=== PATIENT | male | born 1945 | race Caucasian/White ===

== ENCOUNTER 2018-05-30 16:47 | Inpatient (IN) ==
[2018-05-30 17:40] LABS: Urine Appearance Cloudy (CLEAR); Urine Bilirubin Negative (NEGATIVE); Urine Blood 250 /ul (NEGATIVE); Urine Color Brown; Urine Ketone Negative (NEGATIVE); Urine Nitrite Negative (NEGATIVE); Urine Protein 100 mg/dL (NEGATIVE); Urine Specific Gravity 1.025 SP.GR. (1.005-1.030); Urine Urobilinogen Normal (NORMAL); Urine pH 5.5 pH (5.0-7.0)
[2018-05-30 17:43] LABS: Urine Amorphous Sediment Moderate - 2+ (NONE-FEW); Urine Bacteria 1+; Urine RBC >50 /hpf (0-5)
[2018-05-30 17:48] LABS: Hematocrit 26.7 % (42.0-52.0); Hemoglobin 8.6 gm/dL (13.5-18.0); Mean Cell Volume 87.8 fl (78-100); Mean Corpuscular Hemoglobin 28.3 pg (27-31); Mean Corpuscular Hgb Conc 32.2 g/dl (32-36); Mean Platelet Volume 10.4 fl (8-11.3); Neutrophil # 7.2 K/mm3 (1.3-6.0); Neutrophil % 82.5 % (42-75.0); Platelet Count 159 K/mm3 (150-450); Red Blood Count 3.04 M/mm3 (4.7-6.0); Red Cell Distribution Width 15.2 % (11.5-14.0); White Blood Count 8.7 K/mm3 (4.0-10.5)
[2018-05-30 18:07] LABS: ALT 34 U/L (19-67); AST 43 U/L (0-48); Albumin * 2.6 gm/dl (3.4-5.0); Alkaline Phosphatase * 197 U/L (50-170); Anion Gap 14.3 mmol/L (6.8-13.8); BNP * 4342 pg/mL (5-350); BUN/Creatinine Ratio 18.1 (9.0-21.6); Bilirubin, Total 0.7 mg/dL (0.0-1.1); Blood Urea Nitrogen 29 mg/dL (6-23); Ca. Corrected For Albumin 9.5 mg/dL (8.4-10.2); Calcium * 8.7 mg/dL (7.9-10.9); Carbon Dioxide 23.8 mmol/L (24-32.6); Chloride 101 mmol/L (97-106); Glucose * 250 mg/dL (70-110); Potassium 4.1 mmol/L (3.4-4.6); Sodium 135 mmol/L (132-142); Total Protein 7.6 gm/dL (6.2-8.2)
[2018-05-30 18:14] LABS: Troponin I Less than 0.017 ng/mL (0.00-0.10)
[2018-05-30 18:20] LABS: CRP 13.3 mg/dL (0.0-0.9)
[2018-05-30] MEDS ORDERED: VANCOMYCIN HCL 1 GM in DEXTROSE 5 % IN WATER 250 ML IV ONE ×2 (18:23)
[2018-05-30] MEDS ORDERED: FUROSEMIDE 10 MG/ML VIAL IV ONE (18:52)
[2018-05-30] MEDS ORDERED: cefTRIAXone SODIUM 1,000 MG/100 ML BAG IV ONE (18:52)
--- NOTE | 2018-05-30 19:05 | ERNOTE ---
Lower Extremity HPI - Narrative Date of Service: 05/30/18 - General Lower Extremities Pain: foot: left Time Seen by Provider: 05/30/18 17:17 Source: patient, family Exam Limitations: no limitations - Immun/Allergies/Home Medications Immunizations: IMMUNIZATION HX Immunizations Up to Date Yes History of Influenza Vaccine Yes Hx Pneumococcal Vaccination Yes Allergies/Adverse Reactions: Allergies Allergy/AdvReac Type Severity Reaction Status Date / Time No Known Allergies Allergy Verified 05/30/18 17:22 Home Medications: HOME MEDICATIONS Omeprazole [Prilosec] 20 mg PO DAILY 04/03/16 [Last Taken Unknown] Aspirin 325 mg PO DAILY 03/12/18 [Last Taken Unknown] Atorvastatin Calcium 40 mg PO QPM 03/12/18 [Last Taken Unknown] Amlodipine Besylate 10 mg PO DAILY 05/30/18 [Last Taken Unknown] Apixaban [Eliquis] 5 mg PO BID 05/30/18 [Last Taken Unknown] Carvedilol [Coreg] 25 mg PO BID 05/30/18 [Last Taken Unknown] Cholecalciferol (Vitamin D3) [Vitamin D3] 1,000 unit PO DAILY 05/30/18 [Last Taken Unknown] Clobetasol Propionate 15 gm TOPICAL BID 05/30/18 [Last Taken Unknown] Doxazosin Mesylate 16 mg PO HS 05/30/18 [Last Taken Unknown] Gabapentin 100 mg PO DAILY 05/30/18 [Last Taken Unknown] Gabapentin 300 mg PO QPM 05/30/18 [Last Taken Unknown] Insulin Regular, Human [Humulin R U-500 Kwikpen] 60 unit SQ HS 05/30/18 [Last Taken Unknown] Insulin Regular, Human [Humulin R U-500 Kwikpen] 100 unit SQ 0700,1200,1700 05/30/18 [Last Taken Unknown] - History of Present Illness Narrative: patient presents to ed with c/o infected feet, has been taking antibiotics po and wounds have worsened with fever Occurred: last week Loss of Consciousness: Reports: no loss of consciousness Modifying Factors - (Improves): Reports: other - nothing Modifying Factors - (Worsens): Reports: other - nothing Associated Symptoms: Reports: dizzy/light headedness, weakness Other Injuries: Reports: none Prior Treament: Reports: recently seen, treated by physician, similar symptoms before Review of Systems - Review of Systems Constitutional: Present: See HPI, fever, chills, other - ulcers on feet, sob EYE: Present: no symptoms reported ENT: Present: no symptoms reported Respiratory: Present: See HPI, shortness of breath, cough Cardiology: Present: no symptoms reported Gastrointestinal/Abdominal: Present: no symptoms reported Genitourinary: Present: See HPI, frequency, dysuria Musculoskeletal: Present: See HPI Skin: Present: See HPI, other - decubiti- feet Neurological: Present: no symptoms reported Endocrine: Present: no symptoms reported Hematologic/Lymphatic: Present: no symptoms reported Psych: Present: no symptoms reported All Other Systems: All systems neg except as marked Medical History (Last Reviewed 05/30/18 @ 17:21 by Missy Calzada RN) Decubitus skin ulcer Diabetes History of low potassium Hyperlipidemia Hypertension Stroke Onset Date: ~03/2012 Surgical History: Surgical History (Last Reviewed 05/30/18 @ 17:22 by Missy Calzada RN) Hernia Hiatal hernia Family History: Family History (Last Reviewed 05/30/18 @ 17:22 by Missy Calzada RN) Mother CVA (cerebral vascular accident) Father Pneumonia Brother Hypertension Colon cancer Brother Hypertension Brother Hypertension Social History: Preferred Language Lao Do you have any sikhism or No cultural preference? Smoking Status Never smoker Abuse History No History of abuse Psych History No pertinent hx Alcohol Use none Drug Use none No Social History Section defined Physical Exam - Physical Exam General Appearance: Present: mild distress, anxious Head Exam: Present: normal inspection, no evidence of injury Eye Exam: Normal inspection: bilateral, PERRL: bilateral, EOMI: bilateral Ears, Nose, Throat: Present: normal ENT inspection, normal pharynx Neck: Present: normal inspection, nontender Respiratory: Present: no respiratory distress, no accessory muscle use, chest nontender, crackles, rales, rhonchi Cardiovascular/Chest: Present: regular rate, rhythm, no murmur, normal peripheral pulses Gastrointestinal/Abdominal: Present: normal bowel sounds, nontender, nondistended, soft, no organomegaly Extremity Exam: Present: normal except -, extremity edema - decubitis ulcers on both feet Neurological Exam: Present: alert, oriented, normal mood/affect, no m otor/sensory deficits Skin Exam: Present: other - see above Progress - Date and Time Seen: Date and Time: 05/30/18 19:02 condition unchanged, case discussed with dr mccauley accepted for admission to hospital - Results and Orders Patient's Lab Results:: I have reviewed the patient's lab results. - Vital Signs Patient's Vital Signs:: I have reviewed the patient's vital signs. Vital Signs: Vital Signs 05/30/18 17:05 05/30/18 18:52 Temperature 38.4 C H 37.9 C Pulse Rate 74 77 Respiratory Rate 20 16 Blood Pressure 133/75 133/59 O2 Sat by Pulse Oximetry 94 94 - EKG EKG #1 EKG: NSR - X-Ray X-Ray #1 X-Ray: chest - pulmonary edema, feet no osseus deformity Interpretation: Interp. by me - Progress/Reassessment Chief Complaint: Lower Extremity Pain/ Injury Progress:: Unchanged - Transfer of Care Expected Disposition: Admit Plan - Plan Plan: to be admitted Departure Clinical Impression: CHF (congestive heart failure), Decubital ulcer - Departure Disposition: Still a patient Condition: Stable
[2018-05-30] MEDS ORDERED: NORMAL SALINE 1,000 ML IV PRN (19:06)
[2018-05-30] MEDS: VANCOMYCIN HCL 500 MG in DEXTROSE 5 % IN WATER 100 ML IV SCH ×2 (21:53)
[2018-05-30] MEDS: CARVEDILOL 25 MG TABLET PO SCH (22:35)
[2018-05-30] MEDS: GABAPENTIN 300 MG CAPSULE PO SCH (22:36)
[2018-05-30] MEDS: DOXAZOSIN MESYLATE 2 MG TABLET PO SCH (22:36)
[2018-05-30] MEDS: APIXABAN 5 MG TABLET PO SCH (22:36)
[2018-05-30] MEDS: ACETAMINOPHEN 325 MG TABLET PO PRN (23:03)
[2018-05-31] MEDS: CIPROFLOXACIN IN 5 % DEXTROSE 400 MG/200 ML BAG IV SCH ×3 (00:01→23:01)
[2018-05-31] MEDS ORDERED: INSULIN REGULAR HUMAN 100 UNIT SQ SCH (07:00)
[2018-05-31] MEDS: PANTOPRAZOLE SODIUM 20 MG TABLET.DR PO SCH (07:23)
[2018-05-31] MEDS: ACETAMINOPHEN 325 MG TABLET PO PRN ×2 (07:28→17:23)
--- NOTE | 2018-05-31 07:35 | HP ---
Chief Complaint - Chief Complaint Date of Service: 05/31/18 Time of Service: 07:23 Chief Complaint: foot ulcer History of Present Illness: Patient with past medical history of diabetes and CHF presents with bilateral foot ulcers, and another ulcer of his sacrum. He normally sees a physician through the [facility] in [place], and saw him most recently 2 days ago. He was started on Keflex, but his wounds did not improve. He reports they have been oozing for about a week. He has previously seen Dr. Suarez in the wound clinic for ulcers. He reports having a fever up to 101 degrees for a few days. He lives with his son and his family, and does not ambulate much. He states his diabetes insulin regimen as U500, 140 units in the morning, 40-50 units with lunch, and 40-50 units at dinnertime. Will verify with his pharmacy, as these doses are significant. His Lasix had been stopped over the last few weeks, however he is unsure why. He also states he has renal stones in the right, and has had a stent placed for about a month. He was to have what he describes as probable lithotripsy last week, however his ulcers interfered with that treatment. Medical History (Last Updated 05/31/18 @ 02:32 by Vanesa Sosa RN) DVT (deep venous thrombosis) Unsure which leg; reports had Dx DVT in March 2018 Renal stone Bilateral stones Dx in April 2018; renal stent placed in right kidney Decemeber 2018 Decubitus skin ulcer Diabetes History of low potassium Hyperlipidemia Hypertension Stroke Onset Date: ~03/2012 Surgical History: Surgical History (Last Updated 05/31/18 @ 02:32 by Vanesa Sosa RN) History of renal stent Hernia Hiatal hernia Family History: Family History (Last Reviewed 05/30/18 @ 20:09 by Vanesa Sosa RN) Mother CVA (cerebral vascular accident) Father Pneumonia Brother Hypertension Colon cancer Brother Hypertension Brother Hypertension Social History: Patient Lives/Resources [employer] Utilized Occupation Retired Preferred Language Swedish Do you have any jehovah's witness or No cultural preference? Smoking Status Never smoker Have you smoked in the past 12 No months Do you dip or chew tobacco No Abuse History No History of abuse Psych History No pertinent hx Alcohol Use none Drug Use none No Social History Section defined Review Of Systems (GEN) - Review of Systems Generalized/Overall Review: Present: Fever Respiratory: Present: Shortness of Breath Cardiac: Present: Edema. Absent: Chest Pain Abdominal: Present: Diarrhea - intermittent, baseline. Absent: Vomiting Genitourinary: Present: Hematuria Skin: Present: Other - right heel ulcer, left lateral toe/metatarsal ulcer Immunizations: IMMUNIZATION HX Immunizations Up to Date Yes History of Influenza Vaccine Yes Hx Pneumococcal Vaccination Yes Allergies/Adverse Reactions: Allergies Allergy/AdvReac Type Severity Reaction Status Date / Time No Known Allergies Allergy Verified 05/30/18 17:22 Home Medications: HOME MEDICATIONS Omeprazole [Prilosec] 20 mg PO DAILY 04/03/16 [Last Taken Unknown] Aspirin 325 mg PO DAILY 03/12/18 [Last Taken Unknown] Atorvastatin Calcium 40 mg PO QPM 03/12/18 [Last Taken Unknown] Amlodipine Besylate 10 mg PO DAILY 05/30/18 [Last Taken Unknown] Apixaban [Eliquis] 5 mg PO BID 05/30/18 [Last Taken Unknown] Carvedilol [Coreg] 25 mg PO BID 05/30/18 [Last Taken Unknown] Cholecalciferol (Vitamin D3) [Vitamin D3] 1,000 unit PO DAILY 05/30/18 [Last Taken Unknown] Clobetasol Propionate 15 gm TOPICAL BID 05/30/18 [Last Taken Unknown] Doxazosin Mesylate 16 mg PO HS 05/30/18 [Last Taken Unknown] Gabapentin 100 mg PO DAILY 05/30/18 [Last Taken Unknown] Gabapentin 300 mg PO QPM 05/30/18 [Last Taken Unknown] Insulin Regular, Human [Humulin R U-500 Kwikpen] 60 unit SQ HS 05/30/18 [Last Taken Unknown] Insulin Regular, Human [Humulin R U-500 Kwikpen] 100 unit SQ 0700,1200,1700 05/30/18 [Last Taken Unknown] Exam - Exam Vital Signs: Vital Signs - Last Taken Temp 37.1 C 05/31/18 06:54 Pulse 79 05/31/18 06:54 Resp 20 05/31/18 06:54 BP 120/48 05/31/18 06:54 Pulse Ox 93 05/31/18 06:54 Constitutional: Present: Alert, Oriented x3, Morbidly obese Respiratory: Present: normal breath sounds, no respiratory distress Cardiovascular/Chest: Present: regular rate, rhythm, systolic murmur - II/ Abdomen: Present: soft, nontender, obese Extremity: Present: lower extremity edema - 2+ bilaterally Skin Exam: Present: other - mepilex over sacral ulcer. 4 X 4 cm blackened area of plantar surface of right heel, with surrounding macerated skin. 2X2 cm Stage III ulcer of lateral left forefoot Neurologic: Present: normal mood/affect Diagnostic Studies: Abnormal Lab Results 05/30/18 05/30/18 05/30/18 Range/Units 17:28 17:44 17:44 RBC 3.04 L (4.7-6.0) M/mm3 Hgb 8.6 L (13.5-18.0) gm/dL Hct 26.7 L (42.0-52.0) % RDW 15.2 H (11.5-14.0) % Immature Gran % (Auto) 0.60 H (0.001-0.429) % Immature Gran # (Auto) 0.05 H (0.000-0.0310) K/mm3 Neutrophils % 82.5 H (42-75.0) % Lymphocytes % 7.1 L (20-51) % Neutrophils # 7.2 H (1.3-6.0) K/mm3 Lymphocytes # 0.62 L (1.5-3.5) k/mm3 Carbon Dioxide 23.8 L (24-32.6) mmol/L Anion Gap 14.3 H (6.8-13.8) mmol/L BUN 29 H (6-23) mg/dL Creatinine 1.60 H (0.4-1.4) mg/dL Est GFR (Non-Af Amer) 46 L (60-130) mL/min Random Glucose 250 H (70-110) mg/dL Lactic Acid, Venous (0.4-2.0) mmol/L Alkaline Phosphatase 197 H (50-170) U/L C-Reactive Prot, Quant 13.3 H (0.0-0.9) mg/dL B-Natriuretic Peptide 4342 H (5-350) pg/mL Albumin 2.6 L (3.4-5.0) gm/dl Procalcitonin (0.05-0.50) ng/mL Urine Protein 100 H (NEGATIVE) mg/dL Urine Glucose (UA) 100 H (NEGATIVE) mg/dL Urine Blood 250 H (NEGATIVE) /ul Prot Sulfosalicylic Acd 4+ H (0) mg/dL Ur Leukocyte Esterase 25 H (NEGATIVE) /ul Urine RBC >50 H (0-5) /hpf Urine WBC 5-10 H (0-5) /hpf Amorphous Sediment Moderate - 2+ H (NONE-FEW) Urine Bacteria 1+ H (NONE) 05/30/18 05/30/18 Range/Units 17:44 17:44 RBC (4.7-6.0) M/mm3 Hgb (13.5-18.0) gm/dL Hct (42.0-52.0) % RDW (11.5-14.0) % Immature Gran % (Auto) (0.001-0.429) % Immature Gran # (Auto) (0.000-0.0310) K/mm3 Neutrophils % (42-75.0) % Lymphocytes % (20-51) % Neutrophils # (1.3-6.0) K/mm3 Lymphocytes # (1.5-3.5) k/mm3 Carbon Dioxide (24-32.6) mmol/L Anion Gap (6.8-13.8) mmol/L BUN (6-23) mg/dL Creatinine (0.4-1.4) mg/dL Est GFR (Non-Af Amer) (60-130) mL/min Random Glucose (70-110) mg/dL Lactic Acid, Venous 2.2 H* (0.4-2.0) mmol/L Alkaline Phosphatase (50-170) U/L C-Reactive Prot, Quant (0.0-0.9) mg/dL B-Natriuretic Peptide (5-350) pg/mL Albumin (3.4-5.0) gm/dl Procalcitonin 0.69 H (0.05-0.50) ng/mL Urine Protein (NEGATIVE) mg/dL Urine Glucose (UA) (NEGATIVE) mg/dL Urine Blood (NEGATIVE) /ul Prot Sulfosalicylic Acd (0) mg/dL Ur Leukocyte Esterase (NEGATIVE) /ul Urine RBC (0-5) /hpf Urine WBC (0-5) /hpf Amorphous Sediment (NONE-FEW) Urine Bacteria (NONE) Laboratory Results WBC 8.7 K/mm3 (4.0-10.5) 05/30/18 17:44 RBC 3.04 M/mm3 (4.7-6.0) L 05/30/18 17:44 Hgb 8.6 gm/dL (13.5-18.0) L 05/30/18 17:44 Hct 26.7 % (42.0-52.0) L 05/30/18 17:44 MCV 87.8 fl (78-100) 05/30/18 17:44 MCH 28.3 pg (27-31) 05/30/18 17:44 MCHC 32.2 g/dl (32-36) 05/30/18 17:44 RDW 15.2 % (11.5-14.0) H 05/30/18 17:44 Plt Count 159 K/mm3 (150-450) 05/30/18 17:44 MPV 10.4 fl (8-11.3) 05/30/18 17:44 Immature Gran % (Auto) 0.60 % (0.001-0.429) H 05/30/18 17:44 Immature Gran # (Auto) 0.05 K/mm3 (0.000-0.0310) H 05/30/18 17:44 Neutrophils % 82.5 % (42-75.0) H 05/30/18 17:44 Lymphocytes % 7.1 % (20-51) L 05/30/18 17:44 Monocytes % 8.6 % (0.0-9) 05/30/18 17:44 Eosinophils % 1.0 % (0.0-3.0) 05/30/18 17:44 Basophils % 0.2 % (0.0-1.0) 05/30/18 17:44 Nucleated RBC % 0.0 k/mm3 (0-1) 05/30/18 17:44 Neutrophils # 7.2 K/mm3 (1.3-6.0) H 05/30/18 17:44 Lymphocytes # 0.62 k/mm3 (1.5-3.5) L 05/30/18 17:44 Monocytes # 0.8 k/mm3 (0.0-1.0) 05/30/18 17:44 Eosinophils # 0.1 k/mm3 (0.0-0.7) 05/30/18 17:44 Absolute Basophils 0.0 k/mm3 (0.0-0.1) 05/30/18 17:44 Sodium 135 mmol/L (132-142) 05/30/18 17:44 Plasma Sodium 137 mmol/L (130-142) 05/30/18 17:44 Potassium 4.1 mmol/L (3.4-4.6) 05/30/18 17:44 Chloride 101 mmol/L (97-106) 05/30/18 17:44 Carbon Dioxide 23.8 mmol/L (24-32.6) L 05/30/18 17:44 Anion Gap 14.3 mmol/L (6.8-13.8) H 05/30/18 17:44 BUN 29 mg/dL (6-23) H 05/30/18 17:44 Creatinine 1.60 mg/dL (0.4-1.4) H 05/30/18 17:44 Est GFR (Non-Af Amer) 46 mL/min (60-130) L 05/30/18 17:44 BUN/Creatinine Ratio 18.1 (9.0-21.6) 05/30/18 17:44 Random Glucose 250 mg/dL (70-110) H 05/30/18 17:44 Lactic Acid, Venous 2.0 mmol/L (0.4-2.0) 05/30/18 20:30 Calcium 8.7 mg/dL (7.9-10.9) 05/30/18 17:44 Calcium Adj for Albumin 9.5 mg/dL (8.4-10.2) 05/30/18 17:44 Total Bilirubin 0.7 mg/dL (0.0-1.1) 05/30/18 17:44 AST 43 U/L (0-48) 05/30/18 17:44 ALT 34 U/L (19-67) 05/30/18 17:44 Alkaline Phosphatase 197 U/L (50-170) H 05/30/18 17:44 Troponin I Less than 0.017 ng/mL (0.00-0.10) 05/30/18 17:44 C-Reactive Prot, Quant 13.3 mg/dL (0.0-0.9) H 05/30/18 17:44 B-Natriuretic Peptide 4342 pg/mL (5-350) H 05/30/18 17:44 Total Protein 7.6 gm/dL (6.2-8.2) 05/30/18 17:44 Albumin 2.6 gm/dl (3.4-5.0) L 05/30/18 17:44 Procalcitonin 0.69 ng/mL (0.05-0.50) H 05/30/18 17:44 Urine Color Brown 05/30/18 17:28 Urine Appearance Cloudy (CLEAR) 05/30/18 17:28 Urine pH 5.5 pH (5.0-7.0) 05/30/18 17:28 Ur Specific [place] 1.025 SP.GR. (1.005-1.030) 05/30/18 17:28 Urine Protein 100 mg/dL (NEGATIVE) H 05/30/18 17:28 Urine Glucose (UA) 100 mg/dL (NEGATIVE) H 05/30/18 17:28 Urine Ketones Negative mg/dL (NEGATIVE) 05/30/18 17:28 Urine Blood 250 /ul (NEGATIVE) H 05/30/18 17:28 Urine Nitrate Negative (NEGATIVE) 05/30/18 17:28 Urine Bilirubin Negative mg/dl (NEGATIVE) 05/30/18 17:28 Prot Sulfosalicylic Acd 4+ mg/dL (0) H 05/30/18 17:28 Urine Urobilinogen Normal EU/dl (NORMAL) 05/30/18 17:28 Ur Leukocyte Esterase 25 /ul (NEGATIVE) H 05/30/18 17:28 Urine RBC >50 /hpf (0-5) H 05/30/18 17:28 Urine WBC 5-10 /hpf (0-5) H 05/30/18 17:28 Ur Epithelial Cells 0-5 /hpf (0-5) 05/30/18 17:28 Amorphous Sediment Moderate - 2+ (NONE-FEW) H 05/30/18 17:28 Urine Bacteria 1+ (NONE) H 05/30/18 17:28 Urine Culture Comments Culture to follow 05/30/18 17:28 Serum Ketones Negative (NEGATIVE) 05/30/18 17:44 Assessment/Plan - Assessment/Plan (1) Decubital ulcer Assessment: Patient has bilateral decubitus ulcers, with concern for osteomyelitis. Today is Friday, and will order bilateral feet MRIs for tomorrow. Vancomycin and Ciprofloxacin were started last, but will also consult Dr. Suarez for potential surgical management. He reports that his Lasix was stopped, and the increased lower extremity swelling may have contributed to the worsening of his ulcers. We will have him keep his feet up as much as possible and administer Lasix. Blood cultures pending. His initial temperature was febrile at 38.4, he has not been febrile since. We will have him n.p.o. at midnight tonight just in case he may undergo surgery. Problem: Acute Qualifiers: Pressure injury location: heel (2) Diabetes mellitus type 2 with complications Assessment: His glucose has been in the 200s. We will verify his insulin regimen with his pharmacy as he reports very high doses of U500. Problem: Chronic (3) Ureterolithiasis Assessment: Patient had a stent placed approximately a month ago at the [facility]. Initial urinalysis showed signs of infection, and urine culture pending. He received a dose of Rocephin last night, and Cipro was started. Problem: Chronic (4) CHF (congestive heart failure) Assessment: We will administer 40 IV Lasix daily. He has significant bruising in his bilateral lower extremities and decreasing the fluid may help. He reports previously being prescribed Lasix and it was stopped for an unknown reason. We will continue Lasix, as increased edema will impede healing of his wounds. His creatinine appears to be close to his baseline. Problem: Chronic (5) Anemia Assessment: Hgb 8.6, down from 11.6 in March. Normocytic. He has a systolic murmur on exam. He reports having hematuria. Repeat in am. Problem: Acute
[2018-05-31] MEDS: APIXABAN 5 MG TABLET PO SCH ×2 (09:01→20:46)
[2018-05-31] MEDS: CARVEDILOL 25 MG TABLET PO SCH ×2 (09:01→20:46)
[2018-05-31] MEDS: amLODIPine BESYLATE 10 MG TABLET PO SCH (09:01)
[2018-05-31] MEDS: GABAPENTIN 100 MG CAPSULE PO SCH (09:02)
[2018-05-31] MEDS: ASPIRIN 325 MG TABLET.DR PO SCH (09:02)
[2018-05-31] MEDS: FUROSEMIDE 10 MG/ML VIAL IV SCH (09:05)
[2018-05-31] MEDS: VANCOMYCIN HCL 500 MG in DEXTROSE 5 % IN WATER 100 ML IV SCH ×2 (10:35)
[2018-05-31] MEDS: VANCOMYCIN HCL 1.5 GM in DEXTROSE 5 % IN WATER 500 ML IV SCH ×4 (10:35→19:14)
[2018-05-31] MEDS: INSULIN LISPRO 100 UNITS/ML VIAL SC SCH ×3 (11:38→20:50)
[2018-05-31] MEDS: GABAPENTIN 300 MG CAPSULE PO SCH (17:24)
[2018-05-31] MEDS: ROSUVASTATIN CALCIUM 20 MG TABLET PO SCH (17:24)
[2018-05-31] MEDS ORDERED: INSULIN REGULAR, HUMAN 100 UNITS/ML VIAL IV PRN (20:18)
[2018-05-31] MEDS: DOXAZOSIN MESYLATE 2 MG TABLET PO SCH (20:46)
[2018-05-31] MEDS ORDERED: INSULIN REGULAR, HUMAN 100 UNITS/ML VIAL SC SCH (21:00)
[2018-06-01 06:26] LABS: Hematocrit 26.4 % (42.0-52.0); Hemoglobin 8.4 gm/dL (13.5-18.0); Mean Cell Volume 88.6 fl (78-100); Mean Corpuscular Hemoglobin 28.2 pg (27-31); Mean Corpuscular Hgb Conc 31.8 g/dl (32-36); Mean Platelet Volume 11.2 fl (8-11.3); Neutrophil # 6.5 K/mm3 (1.3-6.0); Neutrophil % 81.1 % (42-75.0); Platelet Count 157 K/mm3 (150-450); Red Blood Count 2.98 M/mm3 (4.7-6.0); Red Cell Distribution Width 15.2 % (11.5-14.0)
[2018-06-01 06:32] LABS: Anion Gap 14.1 mmol/L (6.8-13.8); BUN/Creatinine Ratio 22.2 (9.0-21.6); Calcium * 8.3 mg/dL (7.9-10.9); Carbon Dioxide 20.9 mmol/L (24-32.6); Estimated Creat Clear 52.4
[2018-06-01] MEDS: INSULIN LISPRO 100 UNITS/ML VIAL SC SCH ×4 (07:01→20:45)
[2018-06-01] MEDS: PANTOPRAZOLE SODIUM 20 MG TABLET.DR PO SCH (07:01)
[2018-06-01] MEDS: CARVEDILOL 25 MG TABLET PO SCH ×2 (08:24→20:48)
[2018-06-01] MEDS: GABAPENTIN 100 MG CAPSULE PO SCH (08:24)
[2018-06-01] MEDS: ASPIRIN 325 MG TABLET.DR PO SCH (08:24)
[2018-06-01] MEDS: APIXABAN 5 MG TABLET PO SCH (08:24)
[2018-06-01] MEDS: VANCOMYCIN HCL 1.5 GM in DEXTROSE 5 % IN WATER 500 ML IV SCH ×4 (08:24→20:49)
[2018-06-01] MEDS: amLODIPine BESYLATE 10 MG TABLET PO SCH (08:24)
[2018-06-01] MEDS: FUROSEMIDE 10 MG/ML VIAL IV SCH ×2 (08:25→11:45)
--- NOTE | 2018-06-01 08:55 | PN ---
Subjective - Date and Time Seen Date: 06/01/18 Time: 08:15 Subjective Narrative: Patient complains of a sore throat this morning. He states he does not want his feet "cut on too much." He has still been having increased urination and is ambulating to the bathroom. He cannot see if he still has drainage from his feet, however he can tell but he still has edema. Objective - Review of Systems Generalized/Overall Review: Denies: Fever Respiratory: Denies: Shortness of Breath Cardiac: Reports: Edema. Denies: Chest Pain Abdominal: Denies: Vomiting - Vitals Vitals: Last Vital Signs Temp 36.8 C 06/01/18 06:46 Pulse 79 06/01/18 06:46 Resp 20 06/01/18 06:46 BP 109/50 06/01/18 06:46 Pulse Ox 92 L 06/01/18 06:46 - Abnormal Lab Findings Abnormal Lab Findings: Abnormal Lab Results 05/31/18 06/01/18 06/01/18 Range/Units 18:55 06:10 06:10 RBC 2.98 L (4.7-6.0) M/mm3 Hgb 8.4 L (13.5-18.0) gm/dL Hct 26.4 L (42.0-52.0) % MCHC 31.8 L (32-36) g/dl RDW 15.2 H (11.5-14.0) % Immature Gran % (Auto) 1.10 H (0.001-0.429) % Immature Gran # (Auto) 0.09 H (0.000-0.0310) K/mm3 Neutrophils % 81.1 H (42-75.0) % Lymphocytes % 8.0 L (20-51) % Neutrophils # 6.5 H (1.3-6.0) K/mm3 Lymphocytes # 0.64 L (1.5-3.5) k/mm3 Carbon Dioxide 20.9 L (24-32.6) mmol/L Anion Gap 14.1 H (6.8-13.8) mmol/L BUN 32 H (6-23) mg/dL Creatinine 1.44 H (0.4-1.4) mg/dL Est GFR (Non-Af Amer) 52 L (60-130) mL/min BUN/Creatinine Ratio 22.2 H (9.0-21.6) Random Glucose 497 H D 226 H D (70-110) mg/dL - Exam Constitutional: Present: Alert, Morbidly obese Respiratory: Present: no respiratory distress, other - diminished lung sounds Cardiovascular/Chest: Present: regular rate, rhythm Abdomen: Present: soft, nontender Extremity: Present: lower extremity edema - 2+ bilaterally to the knees Skin Exam: Present: other - 4 cm stage III ulcer of plantar surface of right heel with macerated surrounding skin, left foot with mepilex in place Appearance: Present: impaired insight Assessment/Plan - Problems/Diagnosis (1) Decubital ulcer Problem: Acute Qualifiers: Pressure injury location: heel Narrative: He has bilateral foot ulcers of his right heel and left lateral forefoot. MRIs pending for this morning. He is day 3 of vanc and ciprofloxacin. White cell count not elevated. Dr. Suarez with podiatry has been consulted. Need to aggressively treat his CHF exacerbation and blood sugars to help healing. (2) Diabetes mellitus type 2 with complications Problem: Chronic Narrative: Patient uses 150 units U5 100 with breakfast, 50 units U500 with lunch and dinner. U500 not available at our facility. His sugars did creep up to 500 last night. I have an order in place for 10 units of IV insulin as needed if sugar is greater than 500, and continue high-dose sliding scale insulin. He is currently n.p.o. pending potential procedure for his foot ulcers. Anticipate that his blood sugars will greatly increase when he resumes a diet. Our options are to administer home U500, or potential insulin drip. (3) Ureterolithiasis Problem: Chronic (4) CHF (congestive heart failure) Problem: Acute Narrative: We will increase his Lasix to 80 mg daily. Creatinine improved from yesterday. He does not have increased shortness of breath. Distant lung sounds secondary to his body habitus. (5) Anemia Problem: Acute Narrative: Hemoglobin 8.9 yesterday and 8.4 today. We will need to monitor closely. No active signs of blood loss. We will hold his Eliquis temporarily.
[2018-06-01] MEDS ORDERED: FUROSEMIDE 10 MG/ML VIAL IV SCH (09:00)
[2018-06-01] MEDS: ACETAMINOPHEN 325 MG TABLET PO PRN ×2 (09:01→15:35)
[2018-06-01] MEDS: CIPROFLOXACIN IN 5 % DEXTROSE 400 MG/200 ML BAG IV SCH (11:44)
[2018-06-01] MEDS: GABAPENTIN 300 MG CAPSULE PO SCH (16:57)
[2018-06-01] MEDS: ROSUVASTATIN CALCIUM 20 MG TABLET PO SCH (16:57)
--- NOTE | 2018-06-01 16:59 | CONS ---
[facility] - General Date of Service: 06/01/18 Narrative: Pt admitted from ED on 05/30/2018 with CHF, sacral decub, and b/l foot ulcerations. States that he has been under the care of a physician at the [place] in [place] for the last 3 weeks for the b/l foot ulcerations. Relates he is only receiving dressing changes with "some kind of ointment" that his son is applying daily, covering with a dry dressing. He has also been on oral ABX. He is unable to see his feet and has complete numbness of his b/l LE so he cannot tell if they have been improving or worsening. His son was concerned for worsening condition of his feet and brought him to our ED for further care. He has been seen in my office previously, last visit in 2017, for left foot ulceration, which was resolved on his last visit. Upon presentation to the ED, b/l foot xrays were obtained, not showing any osseous changes to indicate infection. However, due to severity in appearance of the ulcers, he was admitted and placed on IV ABX and MRI of b/l feet was done today. There were some concerns for early osteomyelitis vs reactive edema secondary to ulcerations. I was consulted for surgical evaluation and treatment of his b/l foot ulcers. Source: patient Exam Limitations: no limitations - History of Present Illness Timing/Duration: getting worse Associated Symptoms: fever/chills Allergies/Adverse Reactions: Allergies No Known Allergies Allergy (Verified 05/30/18 17:22) Home Medications: Home Medications Medication Instructions Recorded Last Taken Omeprazole [Prilosec] 20 mg PO DAILY 04/03/16 Unknown Aspirin 325 mg PO DAILY 03/12/18 Unknown Atorvastatin Calcium 40 mg PO QPM 03/12/18 Unknown Amlodipine Besylate 10 mg PO DAILY 05/30/18 Unknown Apixaban [Eliquis] 5 mg PO BID 05/30/18 Unknown Carvedilol [Coreg] 25 mg PO BID 05/30/18 Unknown Cholecalciferol (Vitamin D3) 1,000 unit PO DAILY 05/30/18 Unknown [Vitamin D3] Clobetasol Propionate 15 gm TOPICAL BID 05/30/18 Unknown Doxazosin Mesylate 16 mg PO HS 05/30/18 Unknown Gabapentin 100 mg PO DAILY 05/30/18 Unknown Gabapentin 300 mg PO QPM 05/30/18 Unknown Insulin Regular, Human [Humulin R 60 unit SQ HS 05/30/18 Unknown U-500 Kwikpen] Insulin Regular, Human [Humulin R 100 unit SQ 0700,1200,1700 05/30/18 Unknown U-500 Kwikpen] Medications - Medications Current Medications: Current Medications Acetaminophen (Tylenol) 650 mg PO Q6H PRN PRN Reason: Mild pain (pain scale 1-3) Stop: 06/29/18 22:39 Last Admin: 06/01/18 15:35 Dose: 650 mg Documented by: Amlodipine Besylate (Norvasc) 10 mg PO DAILY [facility] Stop: 06/30/18 09:01 Last Admin: 06/01/18 08:24 Dose: 10 mg Documented by: Apixaban (Eliquis) 5 mg PO BID [facility] Stop: 06/29/18 21:16 Last Admin: 06/01/18 08:24 Dose: 5 mg Documented by: Aspirin (Aspirin Enteric Coated) 325 mg PO DAILY [facility] Stop: 06/30/18 09:01 Last Admin: 06/01/18 08:24 Dose: 325 mg Documented by: Carvedilol (Coreg) 25 mg PO BID [facility] Stop: 06/29/18 21:16 Last Admin: 06/01/18 08:24 Dose: 25 mg Documented by: Doxazosin Mesylate (Cardura) 16 mg PO [facility] Stop: 06/29/18 21:31 Last Admin: 05/31/18 20:46 Dose: 16 mg Documented by: Furosemide (Lasix) 80 mg IV DAILY [facility] Stop: 07/01/18 09:01 Last Admin: 06/01/18 11:45 Dose: 40 mg Documented by: Gabapentin (Neurontin) 100 mg PO DAILY [facility] Stop: 06/30/18 09:01 Last Admin: 06/01/18 08:24 Dose: 100 mg Documented by: Gabapentin (Neurontin) 300 mg PO QPM [facility] Stop: 06/29/18 21:31 Last Admin: 05/31/18 17:24 Dose: 300 mg Documented by: Ciprofloxacin/Dextrose (Cipro) 400 mg in 200 mls @ 200 mls/hr IV Q12H [facility]; Protocol Stop: 06/29/18 21:31 Last Infusion: 06/01/18 12:44 Dose: Infused Documented by: Vancomycin HCl 1.5 gm/ (Dextrose/Water) 500 mls @ 140 mls/hr IV Q12H [facility] Stop: 06/30/18 08:01 Last Infusion: 06/01/18 11:59 Dose: Infused Documented by: Insulin Human Lispro (Humalog) 0 units SC ACHLEENA [facility]; Protocol Stop: 06/30/18 12:01 Last Admin: 06/01/18 11:53 Dose: 10 units Documented by: Pantoprazole Sodium (Protonix) 20 mg PO DAILY@0700 [facility] Stop: 06/30/18 07:01 Last Admin: 06/01/18 07:01 Dose: 20 mg Documented by: Rosuvastatin Calcium (Crestor) 20 mg PO QPM [facility] Stop: 06/30/18 17:01 Last Admin: 05/31/18 17:24 Dose: 20 mg Documented by: Review of Systems - Review of Systems Generalized/Overall Review: Present: Chills, Fever EENTM: Present: Other - blindness Abdominal: Absent: Nausea, Vomiting Neurological: Present: Numbness Skin: Present: Other - bilateral foot ulcerations Physical Examination - Exam Vital Signs: Vital Signs - Last Taken Temp 36.6 C 06/01/18 13:46 Pulse 65 06/01/18 13:46 Resp 18 06/01/18 13:46 BP 107/55 06/01/18 13:46 Pulse Ox 95 06/01/18 13:46 O2 Oxygen Delivery Method Room Air Constitutional: Present: Alert, Oriented x3, Cooperative Peripheral Pulses: dorsalis-pedis (R): 0 - monophasic on doppler, dorsalis-pedis (L): 1+ - biphasic on doppler Extremity: Present: lower extremity edema Skin Exam: Present: other - Ulceration to left foot sub 5th metatarsal head measuring 2.8 x 2 x 0.3 cm. No tunneling or undermining. Loss of tissue to full thicknes with exposure of subcutaneous fat layer. Base mostly with black, necrotic, foul smelling tissue. Surrounding tissue with maceration and peeling, mild localized erythema. No crepitance on palpation of skin. Moderate serous drainage, malodor present. No exposed tendon, can palpate head of 5th m etatarsal. Ulceration to plantar right heel measuring 4 x 4 x 0.2 cm. No tunneling or undermining. Loss of tissue to full thicknes with exposure of subcutaneous fat layer. Base mostly with black, necrotic, foul smelling tissue. Surrounding tissue with maceration and peeling, mild localized erythema. No crepitance on palpation of skin. Moderate serous drainage, strong malodor present. No exposed tendon or bone at this time. Neurologic: Present: sensory deficit Appearance: Present: appropriate appearance Eye contact: Present: cooperative - Results and Findings: Lab/Microbiology results last 24 hrs: Abnormal/Pending Laboratory Last 24 HRS 06/01/18 06/01/18 06/01/18 12:35 06:10 06:10 RBC 2.98 L Hgb 8.4 L Hct 26.4 L MCHC 31.8 L RDW 15.2 H Immature Gran % (Auto) 1.10 H Immature Gran # (Auto) 0.09 H Neutrophils % 81.1 H Lymphocytes % 8.0 L Neutrophils # 6.5 H Lymphocytes # 0.64 L ESR 99 H Carbon Dioxide 20.9 L Anion Gap 14.1 H BUN 32 H Creatinine 1.44 H Est GFR (Non-Af Amer) 52 L BUN/Creatinine Ratio 22.2 H Random Glucose 226 H D 05/31/18 18:55 RBC Hgb Hct MCHC RDW Immature Gran % (Auto) Immature Gran # (Auto) Neutrophils % Lymphocytes % Neutrophils # Lymphocytes # ESR Carbon Dioxide Anion Gap BUN Creatinine Est GFR (Non-Af Amer) BUN/Creatinine Ratio Random Glucose 497 H D Culture 05/30/18 18:19 Wound Culture - Preliminary Foot - Left Gram Negative Bacilli Gram Negative Bacilli#2 Group C Streptococcus 05/30/18 18:19 Wound Culture - Preliminary Foot - Right Staphylococcus Species Streptococcus Species Gram Negative Bacilli 05/30/18 17:30 Urine Culture - Preliminary Urine,Clean Catch No Growth 05/30/18 06:36 Blood Culture - Preliminary Blood NO GROWTH 24 HOURS 05/30/18 17:44 Blood Culture - Preliminary Blood NO GROWTH 24 HOURS 05/30/18 20:30 - Final Nares MRSA Negative - Assessments/Findings (1) Diabetic ulcer of foot associated with diabetes mellitus due to underlying condition, with bone involvement without evidence of necrosis Diagnosis(s): Discussed b/l foot ulcerations, MRI results, and treatment options, to include local wound care with debridement, dressing changes, and continued IV ABX, likely 6-8 weeks vs surgical debridement of ulcerations, possible amputations vs debridement of infected bone only. Pt is in agreement with debridement of ulcerations at bedside today. Ulcerations debrided to subcutaneous tissue with #15 blade, excising macerated tissue from the wound margins revealing healthy, bleeding, subcutaneous wound margins. Surface debrided with #15 blade, excising approximately 25% of necrotic tissue down to underlying bleeding subcutaneous tissue. Remaining necrotic tissue is tightly adhered and left intact at this time. Ulcerations dressed with Aquacel Ag, dry gauze, dustin, and MARU bandage. Will begin daily dressings with Santyl, dry gauze, dustin and MARU to help further debride necrotic tissue from the wound beds. Did discuss at length with the patient the severity of his ulcerations/inf ections and the potential that these infections can progress very rapidly. If not treated appropriately, these infections can lead to . Pt is adamant that he is not going to have surgery of any kind. He will agree with dressing changes and local debridement along with licensed psychiatric technician IV ABX, but states "he would rather pass on from this life than have a part of his foot or leg removed." Again reminded him that this infection can become life threatening, and he states understanding, still refusing surgical care. Will plan to follow in his care and continue to educate. Problem: Chronic Qualifiers: Diabetic foot ulcer location: heel Laterality: right Qualified Code(s): E08.621 - Diabetes mellitus due to underlying condition with foot ulcer; L97.416 - Non-pressure chronic ulcer of right heel and midfoot with bone involvement without evidence of necrosis (2) Diabetic ulcer of foot associated with diabetes mellitus due to underlying condition, with bone involvement without evidence of necrosis Problem: Chronic Qualifiers: Diabetic foot ulcer location: other Laterality: left Qualified Code(s): E08.621 - Diabetes mellitus due to underlying condition with foot ulcer; L97.526 - Non-pressure chronic ulcer of other part of left foot with bone involvement without evidence of necrosis
[2018-06-01] MEDS: DOXAZOSIN MESYLATE 2 MG TABLET PO SCH (20:49)
[2018-06-01] MEDS ORDERED: INSULIN REGULAR, HUMAN 100 UNITS/ML VIAL SC SCH (21:00)
[2018-06-02] MEDS: CIPROFLOXACIN IN 5 % DEXTROSE 400 MG/200 ML BAG IV SCH ×3 (01:03→22:59)
[2018-06-02] MEDS: ACETAMINOPHEN 325 MG TABLET PO PRN ×3 (04:40→17:29)
[2018-06-02 05:35] LABS: Hematocrit 27.4 % (42.0-52.0); Hemoglobin 8.7 gm/dL (13.5-18.0); Mean Cell Volume 87.8 fl (78-100); Mean Corpuscular Hemoglobin 27.9 pg (27-31); Mean Corpuscular Hgb Conc 31.8 g/dl (32-36); Mean Platelet Volume 11.1 fl (8-11.3); Neutrophil # 6.1 K/mm3 (1.3-6.0); Neutrophil % 80.9 % (42-75.0); Platelet Count 161 K/mm3 (150-450); Red Blood Count 3.12 M/mm3 (4.7-6.0); Red Cell Distribution Width 15.3 % (11.5-14.0); White Blood Count 7.6 K/mm3 (4.0-10.5)
[2018-06-02 05:36] LABS: Anion Gap 15.5 mmol/L (6.8-13.8); BUN/Creatinine Ratio 20.9 (9.0-21.6); Calcium * 8.4 mg/dL (7.9-10.9); Carbon Dioxide 20.9 mmol/L (24-32.6); Estimated Creat Clear 49.3; Potassium 4.4 mmol/L (3.4-4.6)
[2018-06-02] MEDS: PANTOPRAZOLE SODIUM 20 MG TABLET.DR PO SCH (07:14)
[2018-06-02] MEDS: INSULIN LISPRO 100 UNITS/ML VIAL SC SCH ×4 (07:14→21:24)
[2018-06-02] MEDS ORDERED: VANCOMYCIN HCL LEVEL XX ONE (07:30)
[2018-06-02 08:10] LABS: Vancomycin Trough 26.8 mcg/mL (10.0-20.0)
--- NOTE | 2018-06-02 08:46 | PN ---
Subjective - Date and Time Seen Date: 06/02/18 Time: 11:45 Subjective Narrative: Patient was seen and examined by Dr. Suarez yesterday, and debridement was performed. Surgery suggested, however patient declines. He reports his diet has not changed much here compared to his home diet. He has no new concerns. Objective - Review of Systems Generalized/Overall Review: Denies: Fever Respiratory: Denies: Shortness of Breath Cardiac: Reports: Edema. Denies: Chest Pain Abdominal: Denies: Vomiting - Vitals Vitals: Last Vital Signs Temp 36.6 C 06/02/18 06:29 Pulse 68 06/02/18 06:29 Resp 18 06/02/18 06:29 BP 128/56 06/02/18 06:29 Pulse Ox 93 06/02/18 06:29 - Abnormal Lab Findings Abnormal Lab Findings: Abnormal Lab Results 06/01/18 06/02/18 06/02/18 Range/Units 12:35 05:05 05:05 RBC 3.12 L (4.7-6.0) M/mm3 Hgb 8.7 L (13.5-18.0) gm/dL Hct 27.4 L (42.0-52.0) % MCHC 31.8 L (32-36) g/dl RDW 15.3 H (11.5-14.0) % Immature Gran % (Auto) 1.10 H (0.001-0.429) % Immature Gran # (Auto) 0.08 H (0.000-0.0310) K/mm3 Neutrophils % 80.9 H (42-75.0) % Lymphocytes % 7.9 L (20-51) % Neutrophils # 6.1 H (1.3-6.0) K/mm3 Lymphocytes # 0.60 L (1.5-3.5) k/mm3 ESR 99 H (0-10) mm/hr Carbon Dioxide 20.9 L (24-32.6) mmol/L Anion Gap 15.5 H (6.8-13.8) mmol/L BUN 32 H (6-23) mg/dL Creatinine 1.53 H (0.4-1.4) mg/dL Est GFR (Non-Af Amer) 48 L (60-130) mL/min Random Glucose 255 H (70-110) mg/dL Vancomycin Trough (10.0-20.0) mcg/mL 06/02/18 Range/Units 07:34 RBC (4.7-6.0) M/mm3 Hgb (13.5-18.0) gm/dL Hct (42.0-52.0) % MCHC (32-36) g/dl RDW (11.5-14.0) % Immature Gran % (Auto) (0.001-0.429) % Immature Gran # (Auto) (0.000-0.0310) K/mm3 Neutrophils % (42-75.0) % Lymphocytes % (20-51) % Neutrophils # (1.3-6.0) K/mm3 Lymphocytes # (1.5-3.5) k/mm3 ESR (0-10) mm/hr Carbon Dioxide (24-32.6) mmol/L Anion Gap (6.8-13.8) mmol/L BUN (6-23) mg/dL Creatinine 1.47 H (0.4-1.4) mg/dL Est GFR (Non-Af Amer) (60-130) mL/min Random Glucose (70-110) mg/dL Vancomycin Trough 26.8 H (10.0-20.0) mcg/mL - Exam Constitutional: Present: Alert, Cooperative Respiratory: Present: no respiratory distress Cardiovascular/Chest: Present: regular rate, rhythm Abdomen: Present: soft, obese Extremity: Present: lower extremity edema - 2+ bilaterally to the knee, similar to yesterday Skin Exam: Present: other - 1 cm skin tear of right medial buttocks Assessment/Plan - Problems/Diagnosis (1) Osteomyelitis of right foot Problem: Suspected Narrative: MRIs were questionable for bilateral osteomyelitis. However with the combination of physical exam findings it is ESR of 99, osteomyelitis is likely, and we will treat him as such. Will place PICC line for long-term antibiotics. He was also seen by Dr. Suarez, and appreciate her assistance. He declines amputation, despite the increased risk of . Debridement performed yesterday. Will need aggressive CHF and diabetic management to promote wound healing. Cultures show Staphylococcus, Serratia marcescens, and group C strep, susceptible to Cipro, which was started on the night of admission. Continue vancomycin. Resume eliquis since he is declining surgery. (2) Decubital ulcer Problem: Acute Qualifiers: Pressure injury location: heel Narrative: He has a right heel ulcer, left lateral forefoot ulcer, and an ulcer of his sacrum, which appears to be more of a skin tear. 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 Will change Humulin to Lantus for a longer acting coverage during hospi talization. His home regimen is 150 units of U500 in the morning, 40-50 units at lunch, and 40-50 units at dinnertime. (4) CHF (congestive heart failure) Problem: Acute Narrative: Continue 80 mg IV Lasix daily. Creatinine essentially unchanged from yesterday. (5) Anemia Problem: Acute Narrative: Hgb 8.7 today, 8.4 yesterday. Recheck in am. (6) Ureterolithiasis Problem: Chronic Narrative: Not currently having difficulty urinating. (7) Stage 3 chronic kidney disease Problem: Chronic
[2018-06-02] MEDS: VANCOMYCIN HCL 1.5 GM in DEXTROSE 5 % IN WATER 500 ML IV SCH ×2 (09:19)
[2018-06-02] MEDS: CARVEDILOL 25 MG TABLET PO SCH ×2 (09:23→21:23)
[2018-06-02] MEDS: GABAPENTIN 100 MG CAPSULE PO SCH (09:23)
[2018-06-02] MEDS: ASPIRIN 325 MG TABLET.DR PO SCH (09:24)
[2018-06-02] MEDS: amLODIPine BESYLATE 10 MG TABLET PO SCH (09:24)
[2018-06-02] MEDS: FUROSEMIDE 10 MG/ML VIAL IV SCH (09:24)
[2018-06-02] MEDS: APIXABAN 5 MG TABLET PO SCH ×2 (12:26→21:23)
--- NOTE | 2018-06-02 12:51 | PN ---
Subjective - Date and Time Seen Date: 06/02/18 Time: 11:20 Subjective Narrative: Pt evaluated at bedside resting. Denies any pain in his feet. Denies any N/V/F/C. States that he is having some back pain and did just receive some Tylenol. Still wishes to continue with conservative treatment of his foot ulcerations. Is in agreement with long-term IV ABX and wound debridement. States that surgery is an absolute last option and he "would rather before having any part of his foot or leg cut off." Objective - Review of Systems Generalized/Overall Review: Denies: Chills, Fever Cardiac: Reports: Edema Abdominal: Denies: Nausea, Vomiting Musculoskeletal Complaints: Reports: Back Pain Neurological: Reports: Numbness Skin: Reports: Other - ulcers bilateral feet - Vitals Vitals: Last Vital Signs Temp 36.7 C 06/02/18 10:00 Pulse 78 06/02/18 10:00 Resp 18 06/02/18 10:00 BP 120/50 06/02/18 10:00 Pulse Ox 93 06/02/18 10:00 - Abnormal Lab Findings Abnormal Lab Findings: Abnormal Lab Results 06/01/18 06/02/18 06/02/18 Range/Units 12:35 05:05 05:05 RBC 3.12 L (4.7-6.0) M/mm3 Hgb 8.7 L (13.5-18.0) gm/dL Hct 27.4 L (42.0-52.0) % MCHC 31.8 L (32-36) g/dl RDW 15.3 H (11.5-14.0) % Immature Gran % (Auto) 1.10 H (0.001-0.429) % Immature Gran # (Auto) 0.08 H (0.000-0.0310) K/mm3 Neutrophils % 80.9 H (42-75.0) % Lymphocytes % 7.9 L (20-51) % Neutrophils # 6.1 H (1.3-6.0) K/mm3 Lymphocytes # 0.60 L (1.5-3.5) k/mm3 ESR 99 H (0-10) mm/hr Carbon Dioxide 20.9 L (24-32.6) mmol/L Anion Gap 15.5 H (6.8-13.8) mmol/L BUN 32 H (6-23) mg/dL Creatinine 1.53 H (0.4-1.4) mg/dL Est GFR (Non-Af Amer) 48 L (60-130) mL/min Random Glucose 255 H (70-110) mg/dL Vancomycin Trough (10.0-20.0) mcg/mL 06/02/18 Range/Units 07:34 RBC (4.7-6.0) M/mm3 Hgb (13.5-18.0) gm/dL Hct (42.0-52.0) % MCHC (32-36) g/dl RDW (11.5-14.0) % Immature Gran % (Auto) (0.001-0.429) % Immature Gran # (Auto) (0.000-0.0310) K/mm3 Neutrophils % (42-75.0) % Lymphocytes % (20-51) % Neutrophils # (1.3-6.0) K/mm3 Lymphocytes # (1.5-3.5) k/mm3 ESR (0-10) mm/hr Carbon Dioxide (24-32.6) mmol/L Anion Gap (6.8-13.8) mmol/L BUN (6-23) mg/dL Creatinine 1.47 H (0.4-1.4) mg/dL Est GFR (Non-Af Amer) (60-130) mL/min Random Glucose (70-110) mg/dL Vancomycin Trough 26.8 H (10.0-20.0) mcg/mL - Exam Constitutional: Present: Alert, Oriented x3, Cooperative Extremity: Present: lower extremity edema Skin Exam: Present: other - Ulcerations to left plantar 5th metatarsal head and right plantar heel essentially unchanged from visit yesterday, still with black, dry, necrotic tissue. Malodor not as strong today, however still present. Neurologic: Present: sensory deficit Appearance: Present: appropriate appearance Eye contact: Present: cooperative Assessment/Plan Plan Narrative: Again discussed severity of ulcerations and infections in his feet. Again discussed possibility of surgical care to remove infected bone. Pt states that "surgery is an absolute last resort, and I would rather before having any part of my foot or leg cut off." Educated on how quickly these infections can progress, and again advised that they can become life-threatening. He states that "if this is how the good Lord wants me to go, then this is how I will go." He is in agreement with continued local wound care and long-term IV ABX. He is to have a PICC line placed later today. Ulcerations dressed with Santyl, dry gauze, kerlix, and MARU bandage. Will continue with daily dressing changes. I will continue to change while he remains in hospital. Will place orders for dressing changes at home when d/c is planned. Will continue to educate on ulcerations and infections. 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
--- NOTE | 2018-06-02 14:01 | ANES ---
Anesthesia Procedure Note Procedure Note: ANESTHESIA PROCEDURE NOTE Date of procedure:[]. 06/02/2018 Time of procedure:[]. 1330 Performed by: David Huston CRNA [employer] Supervisor: [] None . Preprocedure diagnosis: []. Diabetic foot ulcers. Need for long-term IV antibiotic treatment. Post procedure diagnosis: Same. Procedure:[] PICC line insertion Indications: []. IV access for long-term antibiotic therapy Findings: [] Patient is placed in a supine position with left arm extended towards patient's side. Patient's left antecubital fossa was prepped with ChloraPrep and draped sterilely. 1 mL of 1% Xylocaine was injected into skin and subcutaneous tissue at the target site. The access was obtained with a 22- gauge Angiocath needle. Guidewire was inserted without difficulty. A double- lumen PICC line was then advanced over the guidewire. Both ports flush and aspirate easily. EBL: Minimal. Fluids: N/A. Specimen: N/A. Post procedure condition: The patient tolerated the procedure well. No complications were noted. Thank you for this consultation David Huston CRNA
[2018-06-02] MEDS: COLLAGENASE CLOSTRIDIUM HIST. 30 APPL TUBE TP SCH (17:12)
[2018-06-02] MEDS ORDERED: FUROSEMIDE 10 MG/ML VIAL IV ONE (17:17)
[2018-06-02] MEDS: ROSUVASTATIN CALCIUM 20 MG TABLET PO SCH (17:28)
[2018-06-02] MEDS: GABAPENTIN 300 MG CAPSULE PO SCH (17:29)
[2018-06-02] MEDS: ALBUTEROL SULFATE 2.5 MG/0.5 ML VIAL.NEB IH PRN (17:37)
[2018-06-02] MEDS: VANCOMYCIN HCL 1 GM in DEXTROSE 5 % IN WATER 250 ML IV SCH ×2 (20:53)
[2018-06-02] MEDS ORDERED: INSULIN GLARGINE,HUM.REC.ANLOG 100 UNITS/ML VIAL SC SCH (21:00)
[2018-06-02] MEDS: DOXAZOSIN MESYLATE 2 MG TABLET PO SCH (21:22)
[2018-06-02] MEDS ORDERED: INSULIN LISPRO 100 UNITS/ML VIAL SC ONE (22:30)
[2018-06-03] MEDS ORDERED: INSULIN LISPRO 100 UNITS/ML VIAL SC ONE (01:13)
[2018-06-03 05:33] LABS: Hematocrit 25.8 % (42.0-52.0); Hemoglobin 8.2 gm/dL (13.5-18.0); Mean Cell Volume 87.2 fl (78-100); Mean Corpuscular Hemoglobin 27.7 pg (27-31); Mean Corpuscular Hgb Conc 31.8 g/dl (32-36); Mean Platelet Volume 10.5 fl (8-11.3); Neutrophil # 6.6 K/mm3 (1.3-6.0); Neutrophil % 79.7 % (42-75.0); Platelet Count 183 K/mm3 (150-450); Red Blood Count 2.96 M/mm3 (4.7-6.0); Red Cell Distribution Width 15.1 % (11.5-14.0); White Blood Count 8.2 K/mm3 (4.0-10.5)
[2018-06-03 05:38] LABS: Anion Gap 13.7 mmol/L (6.8-13.8); BUN/Creatinine Ratio 19.9 (9.0-21.6); Calcium * 8.4 mg/dL (7.9-10.9); Carbon Dioxide 24.3 mmol/L (24-32.6); Estimated Creat Clear 45.4
[2018-06-03] MEDS: INSULIN LISPRO 100 UNITS/ML VIAL SC SCH ×4 (07:25→20:38)
[2018-06-03] MEDS: PANTOPRAZOLE SODIUM 20 MG TABLET.DR PO SCH (07:25)
[2018-06-03] MEDS: ACETAMINOPHEN 325 MG TABLET PO PRN ×2 (08:13→15:53)
[2018-06-03] MEDS: ASPIRIN 325 MG TABLET.DR PO SCH (08:13)
[2018-06-03] MEDS: COLLAGENASE CLOSTRIDIUM HIST. 30 APPL TUBE TP SCH (08:13)
[2018-06-03] MEDS: GABAPENTIN 100 MG CAPSULE PO SCH (08:14)
[2018-06-03] MEDS: FUROSEMIDE 10 MG/ML VIAL IV SCH (08:14)
[2018-06-03] MEDS: VANCOMYCIN HCL 1 GM in DEXTROSE 5 % IN WATER 250 ML IV SCH ×2 (08:16)
[2018-06-03] MEDS: CARVEDILOL 25 MG TABLET PO SCH ×2 (08:16→20:27)
[2018-06-03] MEDS: amLODIPine BESYLATE 10 MG TABLET PO SCH (08:17)
[2018-06-03] MEDS: APIXABAN 5 MG TABLET PO SCH ×2 (08:23→20:28)
--- NOTE | 2018-06-03 09:17 | PN ---
Subjective - Date and Time Seen Date: 06/03/18 Time: 09:11 Subjective Narrative: Patient had an episode yesterday afternoon and some shortness of breath and wheezing. He had mild improvement with albuterol treatments. He reports being short of breath when he gets up to go to the bathroom. He does have some shortness of breath at home, however he does not have to walk very far to get to the bathroom. Appetite is fine. No fevers. PICC line placed yesterday. Objective - Review of Systems Generalized/Overall Review: Denies: Fever Respiratory: Reports: Shortness of Breath, Wheezing Cardiac: Denies: Chest Pain Abdominal: Denies: Vomiting Skin: Reports: Other - ulcers persist - Vitals Vitals: Last Vital Signs Temp 37.6 C 06/03/18 09:00 Pulse 78 06/03/18 09:00 Resp 22 H 06/03/18 09:00 BP 102/61 06/03/18 09:00 Pulse Ox 94 06/03/18 09:00 - Abnormal Lab Findings Abnormal Lab Findings: Abnormal Lab Results 06/03/18 06/03/18 Range/Units 05:28 05:28 RBC 2.96 L (4.7-6.0) M/mm3 Hgb 8.2 L (13.5-18.0) gm/dL Hct 25.8 L (42.0-52.0) % MCHC 31.8 L (32-36) g/dl RDW 15.1 H (11.5-14.0) % Immature Gran % (Auto) 1.60 H (0.001-0.429) % Immature Gran # (Auto) 0.13 H (0.000-0.0310) K/mm3 Neutrophils % 79.7 H (42-75.0) % Lymphocytes % 7.8 L (20-51) % Neutrophils # 6.6 H (1.3-6.0) K/mm3 Lymphocytes # 0.64 L (1.5-3.5) k/mm3 BUN 33 H (6-23) mg/dL Creatinine 1.66 H (0.4-1.4) mg/dL Est GFR (Non-Af Amer) 44 L (60-130) mL/min Random Glucose 271 H (70-110) mg/dL - Exam Constitutional: Present: Alert, Cooperative - appears chronically ill, Morbidly obese Respiratory: Present: no respiratory distress, wheezing - mild, bilateral Cardiovascular/Chest: Present: regular rate, rhythm Abdomen: Present: obese Extremity: Present: lower extremity edema - 2+ bilaterally to the knee Eye contact: Present: cooperative Assessment/Plan - Problems/Diagnosis (1) Osteomyelitis of right foot Problem: Suspected Narrative: MRI reports "Early changes of osteomyelitis versus reactive edema at the plantar aspect of the calcaneus. Plantar fasciitis, which could be due to infection. Shallow ulceration of the skin at the heel. No evidence for soft tissue abscess." Treating for osteomyelitis. ESR of 99 earlier this week. PICC placed yesterday for long-term antibiotics. He was also seen by Dr. Suarez, and appreciate her assistance. He persistently declines amputation, despite the increased risk of . Debridement performed. Will need aggressive CHF and diabetic management to promote wound healing. Cultures show Staphylococcus, Serratia marcescens, and group C strep, susceptible to Cipro, which was started on the night of admission. Continue vancomycin. Will discuss antibiotic [facility] with [facility] in [place]. He has been afebrile, and WBC not elevated since admission. (2) Osteomyelitis of left foot Problem: Acute Narrative: MRI reports "Nonspecific edema of the fifth proximal phalanx and the fifth metatarsal head as above. Consider early changes of osteomyelitis versus reactive edema due to adjacent cellulitis/inflammatory/septic arthritis." Will confirm antibiotic choice with ID. (3) Decubital ulcer Problem: Acute Qualifiers: Pressure injury location: buttock Pressure injury stage: stage 1 Narrative: Keep mepilex in place. 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 He required 81 units yesterday, and his glucose was in the 400's last night. 60 U Lantus was started last night at 2100 to attempt better capacitor assembler coverage. Will give 10 U IV humulin for glucose greater than 500 prn one time. (5) CHF (congestive heart failure) Problem: Acute Narrative: he continues to have 2+ bilateral pitting edema to the knee. IV Lasix dose increased yesterday to 80 mg daily. Will need to monitor his creatinine, as he is also receiving vancomycin. His weight has not changed significantly from admission. His PCP is an outside provider, and no echo available. Will give extra 40 mg IV dose today. (6) Anemia Problem: Acute Narrative: Will discuss transfusion if less than 7.0. He is at risk of fluid overload with transfusion. (7) Ureterolithiasis Problem: Chronic (8) Stage 3 chronic kidney disease Problem: Chronic
[2018-06-03] MEDS: CIPROFLOXACIN IN 5 % DEXTROSE 400 MG/200 ML BAG IV SCH ×2 (10:40→20:49)
[2018-06-03] MEDS ORDERED: FUROSEMIDE 10 MG/ML VIAL IV ONE (14:32)
[2018-06-03] MEDS: HEPARIN SOD.,PORCINE 100 UNITS/ML IV PRN (14:35)
[2018-06-03] MEDS ORDERED: DILTIAZEM HCL 5 MG/ML VIAL IV ONE (15:45)
--- NOTE | 2018-06-03 15:55 | PN ---
Subjective - Date and Time Seen Date: 06/03/18 Time: 16:57 Subjective Narrative: Pt evaluated in bedside chair resting. Denies any pain in his feet. Denies any N/V/F/C, admits SOB, mostly with activity. States that he continues having some back pain and feels that if he could get that to improve, maybe he could get some rest. Still wishes to continue with conservative treatment of his foot ulcerations. Is in agreement with long-term IV ABX and wound debridement, had PICC line placed yesterday. States that surgery is an absolute last option and he "would rather before having any part of his foot or leg cut off." Objective - Review of Systems Generalized/Overall Review: Reports: Chills. Denies: Fever Respiratory: Reports: Shortness of Breath Cardiac: Reports: Edema Abdominal: Denies: Nausea, Vomiting Musculoskeletal Complaints: Reports: Back Pain Neurological: Reports: Numbness Skin: Reports: Other - ulcerations b/l feet - Vitals Vitals: Last Vital Signs Temp 36.7 C 06/03/18 15:00 Pulse 72 06/03/18 15:00 Resp 17 06/03/18 15:00 BP 127/56 06/03/18 15:00 Pulse Ox 97 06/03/18 15:00 - Abnormal Lab Findings Abnormal Lab Findings: Abnormal Lab Results 06/03/18 06/03/18 Range/Units 05:28 05:28 RBC 2.96 L (4.7-6.0) M/mm3 Hgb 8.2 L (13.5-18.0) gm/dL Hct 25.8 L (42.0-52.0) % MCHC 31.8 L (32-36) g/dl RDW 15.1 H (11.5-14.0) % Immature Gran % (Auto) 1.60 H (0.001-0.429) % Immature Gran # (Auto) 0.13 H (0.000-0.0310) K/mm3 Neutrophils % 79.7 H (42-75.0) % Lymphocytes % 7.8 L (20-51) % Neutrophils # 6.6 H (1.3-6.0) K/mm3 Lymphocytes # 0.64 L (1.5-3.5) k/mm3 BUN 33 H (6-23) mg/dL Creatinine 1.66 H (0.4-1.4) mg/dL Est GFR (Non-Af Amer) 44 L (60-130) mL/min Random Glucose 271 H (70-110) mg/dL - Exam Constitutional: Present: Alert, Oriented x3, Cooperative Extremity: Present: lower extremity edema Skin Exam: Present: other - Ulcerations to left plantar 5th metatarsal head and right plantar heel essentially unchanged from visit yesterday, still with black, dry, necrotic tissue. Malodor not as strong, however still present. Drainage has reduced, no longer with macerated skin margins. Neurologic: Present: sensory deficit Appearance: Present: appropriate appearance Eye contact: Present: cooperative Assessment/Plan Plan Narrative: Again discussed severity of ulcerations and infections in his feet. Again discussed possibility of surgical care to remove infected bone. Pt again refusing any surgical care. Educated on how quickly these infections can progress, and again advised that they can become life-threatening. States understanding of these risks. He is in agreement with continued local wound ca re and long-term IV ABX. PICC line placed yesterday. Ulcerations dressed with Santyl, dry gauze, kerlix, and MARU bandage. Will continue with daily dressing changes. I will continue to change while he remains in hospital. Will place orders for dressing changes at home when d/c is planned. Spoke with son, who called while I was in the room, and he advised that the [place] in [place] has approved him to have continued care in our wound center. States that someone from there will be calling to discuss appointments and treatment plan. Will continue to educate on ulcerations and infections. 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
[2018-06-03] MEDS: ROSUVASTATIN CALCIUM 20 MG TABLET PO SCH (17:04)
[2018-06-03] MEDS: GABAPENTIN 300 MG CAPSULE PO SCH (17:04)
[2018-06-03] MEDS: DOXAZOSIN MESYLATE 2 MG TABLET PO SCH (20:26)
[2018-06-03] MEDS ORDERED: INSULIN GLARGINE,HUM.REC.ANLOG 100 UNITS/ML VIAL SC SCH (21:00)
[2018-06-04] MEDS: ALBUTEROL SULFATE 2.5 MG/0.5 ML VIAL.NEB IH PRN (02:54)
[2018-06-04] MEDS: ACETAMINOPHEN 325 MG TABLET PO PRN ×2 (04:07→16:36)
[2018-06-04 06:29] LABS: Hemoglobin 8.1 gm/dL (13.5-18.0); Mean Cell Volume 85.6 fl (78-100); Mean Corpuscular Hemoglobin 27.7 pg (27-31); Mean Corpuscular Hgb Conc 32.4 g/dl (32-36); Mean Platelet Volume 10.6 fl (8-11.3); Neutrophil # 6.1 K/mm3 (1.3-6.0); Platelet Count 172 K/mm3 (150-450); Red Blood Count 2.92 M/mm3 (4.7-6.0); Red Cell Distribution Width 15.2 % (11.5-14.0); White Blood Count 7.9 K/mm3 (4.0-10.5)
[2018-06-04 06:35] LABS: Anion Gap 14.1 mmol/L (6.8-13.8); BUN/Creatinine Ratio 19.3 (9.0-21.6); Calcium * 8.5 mg/dL (7.9-10.9); Carbon Dioxide 24.9 mmol/L (24-32.6); Estimated Creat Clear 45.4
[2018-06-04] MEDS: INSULIN LISPRO 100 UNITS/ML VIAL SC SCH ×4 (07:20→21:00)
[2018-06-04] MEDS: PANTOPRAZOLE SODIUM 20 MG TABLET.DR PO SCH (07:20)
[2018-06-04] MEDS ORDERED: VANCOMYCIN HCL LEVEL XX ONE (07:30)
--- NOTE | 2018-06-04 08:09 | PN ---
Subjective - Date and Time Seen Date: 06/04/18 Time: 08:08 Subjective Narrative: Patient feels like his feet are doing well. Appetite is intact. No new concerns. He is still declining surgery despite being told the infection may not be able to be treated adequately without surgery, and may shorten his life span. Keeping his feet up worsens his back pain. He has concerns about going home and then having to come back to the hospital. Objective - Review of Systems Generalized/Overall Review: Denies: Fever Respiratory: Denies: Shortness of Breath Cardiac: Reports: Edema. Denies: Chest Pain Abdominal: Denies: Vomiting Genitourinary Symptoms: Denies: Oliguria Musculoskeletal Complaints: Reports: Back Pain Skin: Reports: Other - bilateral foot wounds, sacral wound - Vitals Vitals: Last Vital Signs Temp 37.1 C 06/04/18 06:35 Pulse 77 06/04/18 08:03 Resp 18 06/04/18 06:35 BP 120/41 06/04/18 06:35 Pulse Ox 93 06/04/18 06:35 - Abnormal Lab Findings Abnormal Lab Findings: Abnormal Lab Results 06/04/18 06/04/18 Range/Units 06:15 06:15 RBC 2.92 L (4.7-6.0) M/mm3 Hgb 8.1 L (13.5-18.0) gm/dL Hct 25.0 L (42.0-52.0) % RDW 15.2 H (11.5-14.0) % Immature Gran % (Auto) 2.20 H (0.001-0.429) % Immature Gran # (Auto) 0.17 H (0.000-0.0310) K/mm3 Neutrophils % 78.0 H (42-75.0) % Lymphocytes % 9.4 L (20-51) % Neutrophils # 6.1 H (1.3-6.0) K/mm3 Lymphocytes # 0.74 L (1.5-3.5) k/mm3 Anion Gap 14.1 H (6.8-13.8) mmol/L BUN 32 H (6-23) mg/dL Creatinine 1.66 H (0.4-1.4) mg/dL Est GFR (Non-Af Amer) 44 L (60-130) mL/min Random Glucose 264 H (70-110) mg/dL - Exam Constitutional: Present: Alert, Cooperative, Elderly, Morbidly obese Respiratory: Present: no respiratory distress, decreased breath sounds Cardiovascular/Chest: Present: regular rate, rhythm, systolic murmur - III/ Abdomen: Present: obese Extremity: Present: lower extremity edema - 2+ bilaterally, no change from yesterday Assessment/Plan - Problems/Diagnosis (1) Osteomyelitis of right foot Problem: Suspected Narrative: MRI reports "Early changes of osteomyelitis versus reactive edema at the plantar aspect of the calcaneus. Plantar fasciitis, which could be due to infection. Shallow ulceration of the skin at the heel. No evidence for soft tissue abscess." Treating for osteomyelitis. ESR of 99 earlier this week. PICC placed yesterday for long-term antibiotics. He was also seen by Dr. Suarez, and appreciate her assistance. He persistently declines amputation, despite the increased risk of . Debridement performed. Will need aggressive CHF and diabetic management to promote wound healing. Cultures show Staphylococcus, Serratia marcescens, and group C strep, susceptible to Cipro, which was started on the night of admission. Vancomycin DC'd after discussed with ID in [place]. If insurance allows, will switch antibiotic to Invanz on discharge. WBC not elevated since admission. Given his choice to decline surgical intervention, it was again discussed with him the severity of his infection. His infection may not clear despite antibiotics. Given his comorbidities of uncontrolled diabetes, who his life span is likely limited to less than 6 months. Hospice options were opened with him and he would like for us to speak with his son. Hospice consult placed. May be able to DC home tomorrow with at least 6 weeks IV abx, weekly BMP, and weekly wound checks. 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 You 500 not available here. Lantus was increased to 60 units, however his sugars still range largely in the 300s and 400s yesterday. Will change to very high dose sliding scale insulin, and increase Lantus to 60U bid. (5) CHF (congestive heart failure) Problem: Acute (6) Anemia Problem: Acute (7) Ureterolithiasis Problem: Chronic (8) Stage 3 chronic kidney disease Problem: Chronic
[2018-06-04] MEDS: APIXABAN 5 MG TABLET PO SCH ×2 (09:29→20:58)
[2018-06-04] MEDS: GABAPENTIN 100 MG CAPSULE PO SCH (09:29)
[2018-06-04] MEDS: CARVEDILOL 25 MG TABLET PO SCH ×2 (09:29→20:58)
[2018-06-04] MEDS: amLODIPine BESYLATE 10 MG TABLET PO SCH (09:29)
[2018-06-04] MEDS: ASPIRIN 325 MG TABLET.DR PO SCH (09:29)
[2018-06-04] MEDS: FUROSEMIDE 10 MG/ML VIAL IV SCH (09:30)
[2018-06-04] MEDS: CIPROFLOXACIN IN 5 % DEXTROSE 400 MG/200 ML BAG IV SCH ×2 (10:06→21:03)
--- NOTE | 2018-06-04 16:13 | PN ---
Subjective - Date and Time Seen Date: 06/04/18 Time: 16:05 Subjective Narrative: Pt evaluated in bedside chair resting. Denies any pain in his feet. Denies any N/V/F/C, admits SOB, mostly with activity. States that he continues having some back pain and is cold, but without fevers. Still wishes to continue with conservative treatment of his foot ulcerations. Remains in agreement with long- term IV ABX and wound debridement. Continues to refuse surgical care even with continued efforts to educate on severity of infection and low likelihood of healing without surgical management. A hospice consultation has been placed by Dr. Pride. Objective - Review of Systems Generalized/Overall Review: Reports: Chills. Denies: Fever Respiratory: Reports: Shortness of Breath - with activity Cardiac: Reports: Edema Abdominal: Denies: Nausea, Vomiting Musculoskeletal Complaints: Reports: Back Pain Neurological: Reports: Numbness Skin: Reports: Other - ulcerations bilateral feet - Vitals Vitals: Last Vital Signs Temp 37.4 C 06/04/18 14:59 Pulse 78 06/04/18 14:59 Resp 18 06/04/18 10:57 BP 128/52 06/04/18 14:59 Pulse Ox 98 06/04/18 14:59 - Abnormal Lab Findings Abnormal Lab Findings: Abnormal Lab Results 06/04/18 06/04/18 Range/Units 06:15 06:15 RBC 2.92 L (4.7-6.0) M/mm3 Hgb 8.1 L (13.5-18.0) gm/dL Hct 25.0 L (42.0-52.0) % RDW 15.2 H (11.5-14.0) % Immature Gran % (Auto) 2.20 H (0.001-0.429) % Immature Gran # (Auto) 0.17 H (0.000-0.0310) K/mm3 Neutrophils % 78.0 H (42-75.0) % Lymphocytes % 9.4 L (20-51) % Neutrophils # 6.1 H (1.3-6.0) K/mm3 Lymphocytes # 0.74 L (1.5-3.5) k/mm3 Anion Gap 14.1 H (6.8-13.8) mmol/L BUN 32 H (6-23) mg/dL Creatinine 1.66 H (0.4-1.4) mg/dL Est GFR (Non-Af Amer) 44 L (60-130) mL/min Random Glucose 264 H (70-110) mg/dL - Exam Constitutional: Present: Alert, Oriented x3, Cooperative Extremity: Present: lower extremity edema Skin Exam: Present: other - Ulcerations to left plantar 5th metatarsal head and right plantar heel still with black, dry, necrotic tissue. There does appear to be some granulation tissue developing about the immediate wound margins, but majority of ulcerations remain necrotic. Malodor not as strong, however still present. Drainage has reduced, no longer with macerated skin margins. Neurologic: Present: sensory deficit Appearance: Present: appropriate appearance Eye contact: Present: cooperative Assessment/Plan Plan Narrative: Continued discussion on severity of ulcerations and infections in his feet. Again discussed possibility of surgical care to remove infected bone. Pt still refusing any surgical care. Continued education on how quickly these infections can progress, and again advised that they can become life-threatening. States understanding of these risks. He is in agreement with continued local wound care and long-term IV ABX. PICC line in place. Ulcerations dressed with Santyl, dry gauze, kerlix, and MARU bandage. Will continue with daily dressing changes. I will continue to change while he remains in hospital. Will place orders for dressing changes at home when d/c is planned. Will plan weekly wound evaluation and treatment in the Wound Center. Agree with Hospice care. Will continue to educate on ulcerations and infections. 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
[2018-06-04] MEDS: COLLAGENASE CLOSTRIDIUM HIST. 30 APPL TUBE TP SCH (16:33)
[2018-06-04] MEDS: ROSUVASTATIN CALCIUM 20 MG TABLET PO SCH (16:37)
[2018-06-04] MEDS: GABAPENTIN 300 MG CAPSULE PO SCH (16:38)
[2018-06-04] MEDS: DOXAZOSIN MESYLATE 2 MG TABLET PO SCH (20:57)
[2018-06-04] MEDS: INSULIN GLARGINE,HUM.REC.ANLOG 100 UNITS/ML VIAL SC SCH (21:00)
[2018-06-04] MEDS ORDERED: INSULIN GLARGINE,HUM.REC.ANLOG 100 UNITS/ML VIAL SC SCH (21:00)
[2018-06-05 05:21] LABS: Anion Gap 11.6 mmol/L (6.8-13.8); Calcium * 8.3 mg/dL (7.9-10.9); Carbon Dioxide 25.3 mmol/L (24-32.6); Estimated Creat Clear 43.4; Potassium 3.9 mmol/L (3.4-4.6)
[2018-06-05 05:32] LABS: Hematocrit 25.1 % (42.0-52.0); Mean Corpuscular Hemoglobin 27.4 pg (27-31); Mean Corpuscular Hgb Conc 31.9 g/dl (32-36); Mean Platelet Volume 10.7 fl (8-11.3); Neutrophil # 6.7 K/mm3 (1.3-6.0); Neutrophil % 77.6 % (42-75.0); Platelet Count 185 K/mm3 (150-450); Red Blood Count 2.92 M/mm3 (4.7-6.0); Red Cell Distribution Width 15.3 % (11.5-14.0); White Blood Count 8.6 K/mm3 (4.0-10.5)
[2018-06-05] MEDS: INSULIN LISPRO 100 UNITS/ML VIAL SC SCH ×4 (06:52→20:52)
[2018-06-05] MEDS: PANTOPRAZOLE SODIUM 20 MG TABLET.DR PO SCH (06:52)
[2018-06-05] MEDS: ASPIRIN 325 MG TABLET.DR PO SCH (08:36)
[2018-06-05] MEDS: CARVEDILOL 25 MG TABLET PO SCH ×2 (08:36→20:43)
[2018-06-05] MEDS: APIXABAN 5 MG TABLET PO SCH ×2 (08:37→20:44)
[2018-06-05] MEDS: GABAPENTIN 100 MG CAPSULE PO SCH (08:37)
[2018-06-05] MEDS: FUROSEMIDE 10 MG/ML VIAL IV SCH (08:37)
[2018-06-05] MEDS: amLODIPine BESYLATE 10 MG TABLET PO SCH (08:37)
[2018-06-05] MEDS: CIPROFLOXACIN IN 5 % DEXTROSE 400 MG/200 ML BAG IV SCH ×2 (08:37→20:58)
[2018-06-05] MEDS: COLLAGENASE CLOSTRIDIUM HIST. 30 APPL TUBE TP SCH ×2 (08:38→23:51)
[2018-06-05] MEDS: INSULIN GLARGINE,HUM.REC.ANLOG 100 UNITS/ML VIAL SC SCH ×2 (08:46→20:55)
--- NOTE | 2018-06-05 13:27 | CONS ---
[facility] - General Date of Service: 06/05/18 Narrative: Patient is a 72 year old male, recently admitted to the hospital for the evaluation and treatment of osteomyelitis of the feet and complications from diabetes. He was also noted to have an ulcer to his right buttock. The patient states that the area has been open for approximately one month. He is receiving care from the [place] in [place], and states they recommend a salve. He does not know what the dressing is. He states that his son is performing the dressing changes. He denies any pain associated with the area. Source: patient - History of Present Illness Timing/Duration: constant Allergies/Adverse Reactions: Allergies No Known Allergies Allergy (Verified 05/30/18 17:22) Home Medications: Home Medications Medication Instructions Recorded Last Taken Omeprazole [Prilosec] 20 mg PO DAILY 04/03/16 Unknown Aspirin 325 mg PO DAILY 03/12/18 Unknown Atorvastatin Calcium 40 mg PO QPM 03/12/18 Unknown Amlodipine Besylate 10 mg PO DAILY 05/30/18 Unknown Apixaban [Eliquis] 5 mg PO BID 05/30/18 Unknown Carvedilol [Coreg] 25 mg PO BID 05/30/18 Unknown Cholecalciferol (Vitamin D3) 1,000 unit PO DAILY 05/30/18 Unknown [Vitamin D3] Clobetasol Propionate 15 gm TOPICAL BID 05/30/18 Unknown Doxazosin Mesylate 16 mg PO HS 05/30/18 Unknown Gabapentin 100 mg PO DAILY 05/30/18 Unknown Gabapentin 300 mg PO QPM 05/30/18 Unknown Insulin Regular, Human [Humulin R 60 unit SQ HS 05/30/18 Unknown U-500 Kwikpen] Insulin Regular, Human [Humulin R 100 unit SQ 0700,1200,1700 05/30/18 Unknown U-500 Kwikpen] Medications - Medications Current Medications: Current Medications Acetaminophen (Tylenol) 650 mg PO Q6H PRN PRN Reason: Mild pain (pain scale 1-3) Stop: 06/29/18 22:39 Last Admin: 06/04/18 16:36 Dose: 650 mg Documented by: Albuterol Sulfate (Albuterol Sulfate 2.5 Mg/0.5ml) 2.5 mg IH Q6H PRN PRN Reason: Shortness Of Breath Stop: 07/02/18 17:31 Last Admin: 06/04/18 02:54 Dose: 2.5 mg Documented by: Amlodipine Besylate (Norvasc) 10 mg PO DAILY [facility] Stop: 06/30/18 09:01 Last Admin: 06/05/18 08:37 Dose: 10 mg Documented by: Apixaban (Eliquis) 5 mg PO BID [facility] Stop: 06/29/18 21:16 Last Admin: 06/05/18 08:37 Dose: 5 mg Documented by: Aspirin (Aspirin Enteric Coated) 325 mg PO DAILY [facility] Stop: 06/30/18 09:01 Last Admin: 06/05/18 08:36 Dose: 325 mg Documented by: Carvedilol (Coreg) 25 mg PO BID [facility] Stop: 06/29/18 21:16 Last Admin: 06/05/18 08:36 Dose: 25 mg Documented by: Collagenase (Santyl) 1 appl TP DAILY [facility] Stop: 07/02/18 16:01 Last Admin: 06/05/18 08:38 Dose: 1 appl Documented by: Doxazosin Mesylate (Cardura) 16 mg PO HS [facility] Stop: 06/29/18 21:31 Last Admin: 06/04/18 20:57 Dose: 16 mg Documented by: Furosemide (Lasix) 80 mg IV DAILY [facility] Stop: 07/01/18 09:01 Last Admin: 06/05/18 08:37 Dose: 80 mg Documented by: Gabapentin (Neurontin) 100 mg PO DAILY [facility] Stop: 06/30/18 09:01 Last Admin: 06/05/18 08:37 Dose: 100 mg Documented by: Gabapentin (Neurontin) 300 mg PO QPM [facility] Stop: 06/29/18 21:31 Last Admin: 06/04/18 16:38 Dose: 300 mg Documented by: Heparin Sodium (Beef Lung) (Heparin Lock Flush Syringe) 100 units IV QSHIFT PRN PRN Reason: prevent PICC line clotting Stop: 07/03/18 11:39 Last Admin: 06/03/18 14:35 Dose: 100 units Documented by: Ciprofloxacin/Dextrose (Cipro) 400 mg in 200 mls @ 200 mls/hr IV Q12H [facility]; Protocol Stop: 06/29/18 21:31 Last Admin: 06/05/18 08:37 Dose: 200 mls/hr Documented by: Insulin Glargine (Lantus) 60 units SC BID [facility] Stop: 07/04/18 21:01 Last Admin: 06/05/18 08:46 Dose: 60 units Documented by: Insulin Human Lispro (Humalog) 0 units SC ACHSINS [facility]; Protocol Stop: 06/30/18 12:01 Last Admin: 06/05/18 11:55 Dose: 25 units Documented by: Insulin Human Regular (Humulin R) 60 units SC HS [facility] Stop: 06/30/18 21:01 Last Admin: 06/01/18 20:44 Dose: 60 units Documented by: Pantoprazole Sodium (Protonix) 20 mg PO DAILY@0700 [facility] Stop: 06/30/18 07:01 Last Admin: 06/05/18 06:52 Dose: 20 mg Documented by: Rosuvastatin Calcium (Crestor) 20 mg PO QPM [facility] Stop: 06/30/18 17:01 Last Admin: 06/04/18 16:37 Dose: 20 mg Documented by: Review of Systems - Review of Systems Generalized/Overall Review: Absent: Chills EENTM: Absent: Nose Congestion Respiratory: Absent: Shortness of Breath Cardiac: Absent: Chest Pain Abdominal: Absent: Nausea, Vomiting Skin: Present: Lesions Physical Examination - Exam Vital Signs: Vital Signs - Last Taken Temp 37.3 C 06/05/18 13:00 Pulse 73 06/05/18 13:00 Resp 18 06/05/18 13:00 BP 135/53 06/05/18 13:00 Pulse Ox 98 06/05/18 13:00 O2 Oxygen Delivery Method Room Air Constitutional: Present: Alert, Cooperative, No distress ENT Exam: Present: hearing grossly normal Skin Exam: Present: warm/dry, other - there is an open ulcer at the superior aspect of the right buttock. it measures ~1cm in circumference. large amount of red granulation tissue. minimal drainage. no erythema. - Results and Findings: Lab/Microbiology results last 24 hrs: Abnormal/Pending Laboratory Last 24 HRS 06/05/18 06/05/18 05:10 05:10 RBC 2.92 L Hgb 8.0 L Hct 25.1 L MCHC 31.9 L RDW 15.3 H Immature Gran % (Auto) 2.70 H Immature Gran # (Auto) 0.23 H Neutrophils % 77.6 H Lymphocytes % 8.8 L Neutrophils # 6.7 H Lymphocytes # 0.75 L BUN 33 H Creatinine 1.74 H Est GFR (Non-Af Amer) 41 L Random Glucose 291 H Culture 05/30/18 06:36 Blood Culture - Final Blood NO GROWTH 5 DAYS 05/30/18 17:44 Blood Culture - Final Blood NO GROWTH 5 DAYS - Assessments/Findings (1) Diabetic ulcer of right buttock Diagnosis(s): The ulcer appears clean and free from infection. Recommend using Donita to the open area, covered with Mepilex border. The dressing will be changed every three days. Wash the area thoroughly at dressing changes. He will continue with excellent off-loading of the area. Thank you for this consult. Problem: Acute
--- NOTE | 2018-06-05 14:44 | PN ---
Subjective - Date and Time Seen Date: 06/05/18 Time: 11:40 Subjective Narrative: Pt evaluated in bedside chair resting. Denies any pain in his feet. Denies any N/V/F/C, admits SOB, mostly with activity. States that he continues having some back pain and is cold, but without fevers. Still wishes to continue with conservative treatment of his foot ulcerations. Remains in agreement with long- term IV ABX and wound debridement. Continues to refuse surgical care even with continued efforts to educate on severity of infection and low likelihood of healing without surgical management. Pt's family is now requesting that he be transferred to a long-term care facility to assist in his daily ABX therapy and dressing changes. Possibility of transfer to [facility] vs [facility]. Objective - Review of Systems Generalized/Overall Review: Reports: Chills. Denies: Fever Respiratory: Reports: Shortness of Breath Cardiac: Reports: Edema Abdominal: Denies: Nausea, Vomiting Musculoskeletal Complaints: Reports: Back Pain Neurological: Reports: Numbness Skin: Reports: Other - bilateral foot ulcerations - Vitals Vitals: Last Vital Signs Temp 37.3 C 06/05/18 13:00 Pulse 73 06/05/18 13:00 Resp 18 06/05/18 13:00 BP 135/53 06/05/18 13:00 Pulse Ox 98 06/05/18 13:00 - Abnormal Lab Findings Abnormal Lab Findings: Abnormal Lab Results 06/05/18 06/05/18 Range/Units 05:10 05:10 RBC 2.92 L (4.7-6.0) M/mm3 Hgb 8.0 L (13.5-18.0) gm/dL Hct 25.1 L (42.0-52.0) % MCHC 31.9 L (32-36) g/dl RDW 15.3 H (11.5-14.0) % Immature Gran % (Auto) 2.70 H (0.001-0.429) % Immature Gran # (Auto) 0.23 H (0.000-0.0310) K/mm3 Neutrophils % 77.6 H (42-75.0) % Lymphocytes % 8.8 L (20-51) % Neutrophils # 6.7 H (1.3-6.0) K/mm3 Lymphocytes # 0.75 L (1.5-3.5) k/mm3 BUN 33 H (6-23) mg/dL Creatinine 1.74 H (0.4-1.4) mg/dL Est GFR (Non-Af Amer) 41 L (60-130) mL/min Random Glucose 291 H (70-110) mg/dL - Exam Constitutional: Present: Alert, Oriented x3, Cooperative Extremity: Present: lower extremity edema Skin Exam: Present: other - Ulcerations to left plantar 5th metatarsal head and right plantar heel still with black, dry, necrotic tissue. There does appear to be increasing granulation tissue developing about the immediate wound margins, but majority of ulcerations remain necrotic. Malodor not as strong, however remains present. Drainage has reduced, no longer with macerated skin margins. Neurologic: Present: sensory deficit Appearance: Present: appropriate appearance Eye contact: Present: cooperative Assessment/Plan Plan Narrative: Continued discussion on severity of ulcerations and infections in his feet. Again discussed possibility of surgical care to remove infected bone. Pt still refusing any surgical care. Continued education on how quickly these infections can progress, and again advised that they can become life-threatening. States understanding of these risks. He is in agreement with continued local wound care and long-term IV ABX. Ulcerations dressed with Santyl, dry gauze, kerlix, and MARU bandage. Will continue with daily dressing changes on d/c. Discussed dressing orders with [employer] Vice President. I will continue to change while he remains in hospital. Will plan weekly wound evaluation and treatment in the [facility] Center. Will continue to educate on ulcerations and infections. 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
--- NOTE | 2018-06-05 16:06 | PN ---
Subjective - Date and Time Seen Date: 06/05/18 Time: 15:45 Subjective Narrative: Patient is able to stand and ambulate to the bathroom. No new concerns. He would like to go to a facility instead of going home. They only have fuel oil at home, and he has some concerns about keeping warm at home. Objective - Review of Systems Generalized/Overall Review: Denies: Fever Respiratory: Denies: Shortness of Breath Cardiac: Reports: Edema. Denies: Chest Pain Abdominal: Denies: Vomiting Skin: Reports: Other - skin wounds of bilateral feet and sacral region. - Vitals Vitals: Last Vital Signs Temp 37.4 C 06/05/18 14:45 Pulse 75 06/05/18 14:45 Resp 20 06/05/18 14:45 BP 132/51 06/05/18 14:45 Pulse Ox 94 06/05/18 14:45 - Abnormal Lab Findings Abnormal Lab Findings: Abnormal Lab Results 06/05/18 06/05/18 Range/Units 05:10 05:10 RBC 2.92 L (4.7-6.0) M/mm3 Hgb 8.0 L (13.5-18.0) gm/dL Hct 25.1 L (42.0-52.0) % MCHC 31.9 L (32-36) g/dl RDW 15.3 H (11.5-14.0) % Immature Gran % (Auto) 2.70 H (0.001-0.429) % Immature Gran # (Auto) 0.23 H (0.000-0.0310) K/mm3 Neutrophils % 77.6 H (42-75.0) % Lymphocytes % 8.8 L (20-51) % Neutrophils # 6.7 H (1.3-6.0) K/mm3 Lymphocytes # 0.75 L (1.5-3.5) k/mm3 BUN 33 H (6-23) mg/dL Creatinine 1.74 H (0.4-1.4) mg/dL Est GFR (Non-Af Amer) 41 L (60-130) mL/min Random Glucose 291 H (70-110) mg/dL - Exam Constitutional: Present: Alert, Cooperative, Morbidly obese Respiratory: Present: no respiratory distress, other - distant lung sounds Cardiovascular/Chest: Present: regular rate, rhythm, systolic murmur Abdomen: Present: obese Extremity: Present: lower extremity edema - 2+ bilaterally to the knee, other - bilateral feet and ankles wrapped in MARU wrap Skin Exam: Present: other - Splitting of his gluteal cleft, without drainage Neurologic: Present: sensory deficit - sensory deficit of both feet. Sensation starts at his ankles bilaterally Assessment/Plan - Problems/Diagnosis (1) Osteomyelitis of right foot Problem: Suspected Narrative: MRI reports "Early changes of osteomyelitis versus reactive edema at the plantar aspect of the calcaneus. Plantar fasciitis, which could be due to infection. Shallow ulceration of the skin at the heel. No evidence for soft tissue abscess." Treating for osteomyelitis. ESR of 99 earlier this week. PICC placed 06/03 for long-term antibiotics. He is also being seen by Dr. Suarez, and appreciate her assistance. He persistently declines amputation, despite the increased risk of . Debridement performed. Will need aggressive CHF and diabetic management to promote wound healing. Would prefer to have his blood glucose less than 200, which has been difficult. Cultures show Staphylococcus, Serratia marcescens, and group C strep, susceptible to Cipro, which was started on the night of admission. Vancomycin DC'd after discussed with ID in [place]. If insurance allows, will switch antibiotic to Invanz on discharge. WBC not elevated since admission. Will need to check his BMP twice a week, and if his CrCl decreases, will decrease his invanz dose to 500 mg daily. The severity of his infections have been discussed with his daily, and he persistently declines surgical intervention. His infection may not clear despite antibiotics. Given his comorbidities of uncontrolled diabetes, who his life span is likely limited to less than 6 months. Hospice consult placed. (2) Osteomyelitis of left foot Problem: Acute (3) Decubital ulcer Problem: Acute Qualifiers: Pressure injury location: buttock Pressure injury stage: stage 1 Narrative: Consult placed today for Sindy De La Cruz, and her assistance is also appreciated. Continue Donita with mepilex, and frequent positional changes. 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 U500 not available here. His insulin dose has been increasing daily here, but he still is having readings in the 400's. Increasing lantus to 80 U bid, and continue very high sliding scale protocol. On DC, he will resume previous dosing of U500. (5) CHF (congestive heart failure) Problem: Acute Narrative: He has been getting 80 mg IV lasix daily, without significant change in his weight. Am reluctant to increase his lasix dose, as his creatinine is slightly increasing. Creatining this morning of 1.74. Lowest creatinine this admission was 1.44 on 06/01. Checking BMP daily while admitted. Anticipate discharging with 80 mg po lasix bid. (6) Anemia Problem: Acute Narrative: Hgb today of 8.0. No significant change from admission. No active signs of bleeding. Transfuse if less than 7.0. (7) Ureterolithiasis Problem: Chronic Narrative: He reports having had a stent placed approximately 5 weeks ago. Will need to follow up with urology after DC. (8) Stage 3 chronic kidney disease Problem: Chronic
[2018-06-05] MEDS: GABAPENTIN 300 MG CAPSULE PO SCH (17:03)
[2018-06-05] MEDS: ROSUVASTATIN CALCIUM 20 MG TABLET PO SCH (17:03)
[2018-06-05] MEDS: ACETAMINOPHEN 325 MG TABLET PO PRN ×2 (17:08→23:54)
[2018-06-05] MEDS: DOXAZOSIN MESYLATE 2 MG TABLET PO SCH (20:44)
[2018-06-05] MEDS: NYSTATIN 15 APPL BTL TP SCH (21:58)
[2018-06-05] MEDS: HEPARIN SOD.,PORCINE 100 UNITS/ML IV PRN (22:05)
[2018-06-06 06:22] LABS: Hematocrit 25.4 % (42.0-52.0); Hemoglobin 8.1 gm/dL (13.5-18.0); Mean Cell Volume 86.1 fl (78-100); Mean Corpuscular Hemoglobin 27.5 pg (27-31); Mean Corpuscular Hgb Conc 31.9 g/dl (32-36); Mean Platelet Volume 10.1 fl (8-11.3); Neutrophil % 74.5 % (42-75.0); Platelet Count 174 K/mm3 (150-450); Red Blood Count 2.95 M/mm3 (4.7-6.0); Red Cell Distribution Width 15.3 % (11.5-14.0); White Blood Count 8.1 K/mm3 (4.0-10.5)
[2018-06-06 06:35] LABS: Anion Gap 11.1 mmol/L (6.8-13.8); BUN/Creatinine Ratio 19.2 (9.0-21.6); Calcium * 8.6 mg/dL (7.9-10.9); Carbon Dioxide 27.7 mmol/L (24-32.6); Estimated Creat Clear 42.6; Potassium 3.8 mmol/L (3.4-4.6)
[2018-06-06] MEDS: INSULIN LISPRO 100 UNITS/ML VIAL SC SCH ×4 (06:48→20:12)
[2018-06-06] MEDS: PANTOPRAZOLE SODIUM 20 MG TABLET.DR PO SCH (06:48)
[2018-06-06] MEDS: ASPIRIN 325 MG TABLET.DR PO SCH (08:30)
[2018-06-06] MEDS: FUROSEMIDE 10 MG/ML VIAL IV SCH (08:31)
[2018-06-06] MEDS: APIXABAN 5 MG TABLET PO SCH ×2 (08:31→20:06)
[2018-06-06] MEDS: INSULIN GLARGINE,HUM.REC.ANLOG 100 UNITS/ML VIAL SC SCH ×2 (08:31→20:15)
[2018-06-06] MEDS: CARVEDILOL 25 MG TABLET PO SCH ×2 (08:31→20:06)
[2018-06-06] MEDS: NYSTATIN 15 APPL BTL TP SCH ×2 (08:31→20:07)
[2018-06-06] MEDS: CIPROFLOXACIN IN 5 % DEXTROSE 400 MG/200 ML BAG IV SCH ×2 (08:32→21:42)
[2018-06-06] MEDS: GABAPENTIN 100 MG CAPSULE PO SCH (08:32)
[2018-06-06] MEDS: amLODIPine BESYLATE 10 MG TABLET PO SCH (08:32)
[2018-06-06] MEDS: COLLAGENASE CLOSTRIDIUM HIST. 30 APPL TUBE TP SCH (08:32)
[2018-06-06] MEDS: ACETAMINOPHEN 325 MG TABLET PO PRN ×2 (11:23→18:33)
--- NOTE | 2018-06-06 11:49 | PN ---
Subjective - Date and Time Seen Date: 06/06/18 Time: 11:31 Subjective Narrative: Patient reports no new concerns. He has questions about placement versus home after DC. He has been accepted to [facility] and will be going there in 2 days. Objective - Review of Systems Generalized/Overall Review: Denies: Fever Respiratory: Denies: Shortness of Breath Cardiac: Reports: Edema. Denies: Chest Pain Abdominal: Denies: Vomiting Genitourinary Symptoms: Reports: Frequency Musculoskeletal Complaints: Reports: Back Pain Skin: Reports: Other - Bilateral foot ulcers and sacral ulcer - Vitals Vitals: Last Vital Signs Temp 36.6 C 06/06/18 06:00 Pulse 66 06/06/18 08:32 Resp 20 06/06/18 06:00 BP 126/58 06/06/18 08:32 Pulse Ox 94 06/06/18 06:00 - Abnormal Lab Findings Abnormal Lab Findings: Abnormal Lab Results 06/06/18 06/06/18 Range/Units 06:10 06:10 RBC 2.95 L (4.7-6.0) M/mm3 Hgb 8.1 L (13.5-18.0) gm/dL Hct 25.4 L (42.0-52.0) % MCHC 31.9 L (32-36) g/dl RDW 15.3 H (11.5-14.0) % Immature Gran % (Auto) 3.80 H (0.001-0.429) % Immature Gran # (Auto) 0.31 H (0.000-0.0310) K/mm3 Lymphocytes % 10.5 L (20-51) % Lymphocytes # 0.85 L (1.5-3.5) k/mm3 BUN 34 H (6-23) mg/dL Creatinine 1.77 H (0.4-1.4) mg/dL Est GFR (Non-Af Amer) 41 L (60-130) mL/min Random Glucose 199 H D (70-110) mg/dL - Exam Constitutional: Present: Alert, Cooperative, Morbidly obese Respiratory: Present: decreased breath sounds Cardiovascular/Chest: Present: regular rate, rhythm, systolic murmur Abdomen: Present: obese Extremity: Present: lower extremity edema - 2+ bilaterally, other - decreased sensation in bilateral feet Skin Exam: Present: other - bilateral feet and ankles wrapped in MARU wrap Assessment/Plan - Problems/Diagnosis (1) Osteomyelitis of right foot Problem: Suspected Narrative: Ulcer is of the plantar surface of his heel. No change from yesterday. MRI done 06/01/18 reports "Early changes of osteomyelitis versus reactive edema at the plantar aspect of the calcaneus. Plantar fasciitis, which could be due to infection. Shallow ulceration of the skin at the heel. No evidence for soft tissue abscess." ESR of 99 earlier this week. PICC placed 06/03 for long-term antibiotics. He is also being seen by Dr. Suarez, and appreciate her assistance. He persistently declines amputation, despite the increased risk of . Debridement performed. Will need aggressive CHF and diabetic management to promote wound healing. Would prefer to have his blood glucose less than 200, which has been difficult. Cultures show Staphylococcus, Serratia marcescens, and group C strep, susceptible to Cipro, which was started on the night of admission. Vancomycin DC'd after discussed with ID in [place]. Will switch antibiotic to Invanz on discharge. WBC not elevated since admission. Will need to check his BMP twice a week, and if his CrCl decreases, will decrease his invanz dose to 500 mg daily. He has no sensation of his feet. The severity of his infections have been discussed with his daily, and he persistently declines surgical intervention. His infection may not clear despite antibiotics. Given his comorbidities of uncontrolled diabetes, who his life span is likely limited to less than 6 months. Hospice consult placed for he and his family to discuss options. (2) Osteomyelitis of left foot Problem: Acute Narrative: See above for plan. Ulcer is over his left lateral forefoot. (3) Decubital ulcer Problem: Acute Qualifiers: Pressure injury location: buttock Pressure injury stage: stage 1 Narrative: Sindy De La Cruz was consulted and is also helping address his sacral wound. Appreciate her assistance. Continue Donita and Mepilex. 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 U500 not available here. His insulin dose has been increasing daily here, but he still is having readings in the 400's. Increased lantus to 80 U bid yesterday, and continue very high sliding scale protocol. On DC, he will resume previous dosing of U500. (5) CHF (congestive heart failure) Problem: Acute Narrative: He has been getting 80 mg IV lasix daily, without significant change in his weight. Am reluctant to increase his lasix dose, as his creatinine is slightly increasing. Creatinine this morning of 1.77. Lowest creatinine this admission was 1.44 on 06/01. Checking BMP daily while admitted. Anticipate discharging w ith 80 mg po lasix bid, which will be equivalent to his current IV dose. If any compression is possible, that would be helpful. (6) Anemia Problem: Chronic (7) Ureterolithiasis Problem: Chronic Narrative: He reports having had a stent placed approximately 5 weeks ago. Will need to follow up with urology after DC. (8) Stage 3 chronic kidney disease Problem: Chronic Narrative: Essentially, no significant change since admission, but he is slowly increasing. Will need to use lasix judiciously, and monitor bid after DC while on invanz.
--- NOTE | 2018-06-06 12:04 | PN ---
Subjective - Date and Time Seen Date: 06/06/18 Time: 11:30 Subjective Narrative: Pt evaluated in bedside chair resting. Denies any pain in his feet. Denies any N/V/F, admits SOB, mostly with activity. States that he continues having some low back pain and is cold most of the time, but without fevers. Still wishes to continue with conservative treatment of his foot ulcerations. Remains in agreement with long-term IV ABX and wound debridement. Continues to refuse surgical care even with continued efforts to educate on severity of infection and low likelihood of healing without surgical management. Awaiting transfer to nursing facility. Will be transferring to [facility], likely in 2 days. Objective - Review of Systems Generalized/Overall Review: Reports: Chills. Denies: Fever Respiratory: Reports: Shortness of Breath Cardiac: Reports: Edema Abdominal: Denies: Nausea, Vomiting Musculoskeletal Complaints: Reports: Back Pain Neurological: Reports: Numbness - Vitals Vitals: Last Vital Signs Temp 36.6 C 06/06/18 06:00 Pulse 66 06/06/18 08:32 Resp 20 06/06/18 06:00 BP 126/58 06/06/18 08:32 Pulse Ox 94 06/06/18 06:00 - Abnormal Lab Findings Abnormal Lab Findings: Abnormal Lab Results 06/06/18 06/06/18 Range/Units 06:10 06:10 RBC 2.95 L (4.7-6.0) M/mm3 Hgb 8.1 L (13.5-18.0) gm/dL Hct 25.4 L (42.0-52.0) % MCHC 31.9 L (32-36) g/dl RDW 15.3 H (11.5-14.0) % Immature Gran % (Auto) 3.80 H (0.001-0.429) % Immature Gran # (Auto) 0.31 H (0.000-0.0310) K/mm3 Lymphocytes % 10.5 L (20-51) % Lymphocytes # 0.85 L (1.5-3.5) k/mm3 BUN 34 H (6-23) mg/dL Creatinine 1.77 H (0.4-1.4) mg/dL Est GFR (Non-Af Amer) 41 L (60-130) mL/min Random Glucose 199 H D (70-110) mg/dL - Exam Constitutional: Present: Alert, Oriented x3, Cooperative Extremity: Present: lower extremity edema Skin Exam: Present: other - Ulcerations to left plantar 5th metatarsal head and right plantar heel still with black, dry, necrotic tissue. There continues to be increasing granulation tissue developing about the immediate wound margins, but majority of ulcerations remain necrotic. Malodor not as strong, however remains present. Drainage has reduced, no longer with macerated skin margins. Has not drained through dressings today, which is the first time since admission. Neurologic: Present: sensory deficit Appearance: Present: appropriate appearance Eye contact: Present: cooperative Assessment/Plan Plan Narrative: Continued discussion on severity of ulcerations and infections in his feet. Again educated on possible surgical care that can be done to remove infected bone, which would increase his likelihood of healing. Pt still refusing any surgical care. Continued education on how quickly these infections can progress, and again advised that they can become life-threatening. States understanding of these risks. He is in agreement with continued local wound care and long-term IV ABX. Ulcerations dressed with Santyl, dry gauze, kerlix, and MARU bandage. Will continue with daily dressing changes at nursing facility on d/c. I will continue to change while he remains in hospital. Will plan weekly wound evaluation and treatment [facility]. Will continue to educate on ulcerations and infections. 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
[2018-06-06] MEDS: GABAPENTIN 300 MG CAPSULE PO SCH (16:52)
[2018-06-06] MEDS: ROSUVASTATIN CALCIUM 20 MG TABLET PO SCH (16:52)
[2018-06-06] MEDS: DOXAZOSIN MESYLATE 2 MG TABLET PO SCH (20:04)
[2018-06-07 06:38] LABS: Mean Cell Volume 86.5 fl (78-100); Mean Corpuscular Hemoglobin 27.3 pg (27-31); Mean Corpuscular Hgb Conc 31.6 g/dl (32-36); Mean Platelet Volume 10.5 fl (8-11.3); Neutrophil # 6.9 K/mm3 (1.3-6.0); Neutrophil % 78.5 % (42-75.0); Platelet Count 176 K/mm3 (150-450); Red Blood Count 2.89 M/mm3 (4.7-6.0); Red Cell Distribution Width 15.4 % (11.5-14.0); White Blood Count 8.7 K/mm3 (4.0-10.5)
[2018-06-07 06:43] LABS: Anion Gap 12.9 mmol/L (6.8-13.8); BUN/Creatinine Ratio 19.2 (9.0-21.6); Calcium * 8.4 mg/dL (7.9-10.9); Carbon Dioxide 26.8 mmol/L (24-32.6); Estimated Creat Clear 43.9; Potassium 3.7 mmol/L (3.4-4.6)
[2018-06-07] MEDS: PANTOPRAZOLE SODIUM 20 MG TABLET.DR PO SCH (06:51)
[2018-06-07] MEDS: INSULIN LISPRO 100 UNITS/ML VIAL SC SCH ×4 (06:51→20:19)
[2018-06-07 07:25] LABS: Hemoglobin 7.9 gm/dL (13.5-18.0)
[2018-06-07] MEDS: CARVEDILOL 25 MG TABLET PO SCH ×2 (09:00→20:22)
[2018-06-07] MEDS: ASPIRIN 325 MG TABLET.DR PO SCH (09:00)
[2018-06-07] MEDS: FUROSEMIDE 10 MG/ML VIAL IV SCH (09:00)
[2018-06-07] MEDS: GABAPENTIN 100 MG CAPSULE PO SCH (09:00)
[2018-06-07] MEDS: APIXABAN 5 MG TABLET PO SCH ×2 (09:00→20:21)
[2018-06-07] MEDS: NYSTATIN 15 APPL BTL TP SCH ×2 (09:00→20:22)
[2018-06-07] MEDS: amLODIPine BESYLATE 10 MG TABLET PO SCH (09:01)
[2018-06-07] MEDS: CIPROFLOXACIN IN 5 % DEXTROSE 400 MG/200 ML BAG IV SCH ×2 (09:01→22:20)
[2018-06-07] MEDS: COLLAGENASE CLOSTRIDIUM HIST. 30 APPL TUBE TP SCH (09:01)
[2018-06-07] MEDS: ACETAMINOPHEN 325 MG TABLET PO PRN ×2 (09:11→16:59)
[2018-06-07] MEDS: INSULIN GLARGINE,HUM.REC.ANLOG 100 UNITS/ML VIAL SC SCH ×2 (09:12→20:19)
--- NOTE | 2018-06-07 09:48 | PN ---
Subjective - Date and Time Seen Date: 06/07/18 Time: 09:47 Subjective Narrative: Patient reports no new concerns. He continues to have some baseline shortness of breath when he gets up to use the restroom. His walk to the restroom he responded and went to the restroom at home. Is tolerating a diet. Continues to have low back pain. After discharge, he is willing to go wherever his family recommends. Objective - Review of Systems Generalized/Overall Review: Denies: Fever Respiratory: Reports: Shortness of Breath Cardiac: Reports: Edema. Denies: Chest Pain Abdominal: Denies: Vomiting Genitourinary Symptoms: Denies: Burning Musculoskeletal Complaints: Reports: Back Pain Skin: Reports: Other - Bilateral foot ulcers and sacral ulcer - Vitals Vitals: Last Vital Signs Temp 37.4 C 06/07/18 07:00 Pulse 76 06/07/18 09:01 Resp 20 06/07/18 07:00 BP 129/54 06/07/18 09:01 Pulse Ox 93 06/07/18 07:00 - Abnormal Lab Findings Abnormal Lab Findings: Abnormal Lab Results 06/07/18 06/07/18 Range/Units 06:25 06:25 RBC 2.89 L (4.7-6.0) M/mm3 Hgb 7.9 L* (13.5-18.0) gm/dL Hct 25.0 L (42.0-52.0) % MCHC 31.6 L (32-36) g/dl RDW 15.4 H (11.5-14.0) % Immature Gran % (Auto) 3.40 H (0.001-0.429) % Immature Gran # (Auto) 0.30 H (0.000-0.0310) K/mm3 Neutrophils % 78.5 H (42-75.0) % Lymphocytes % 8.6 L (20-51) % Neutrophils # 6.9 H (1.3-6.0) K/mm3 Lymphocytes # 0.75 L (1.5-3.5) k/mm3 BUN 33 H (6-23) mg/dL Creatinine 1.72 H (0.4-1.4) mg/dL Est GFR (Non-Af Amer) 42 L (60-130) mL/min Random Glucose 167 H (70-110) mg/dL - Exam Constitutional: Present: Alert, Cooperative, Morbidly obese ENT Exam: Present: hearing grossly normal Respiratory: Present: no respiratory distress - diminished lung sounds Cardiovascular/Chest: Present: regular rate, rhythm Abdomen: Present: obese Extremity: Present: lower extremity edema - 2+ bilaterally to the knee, possible mild improvement from yesterday Skin Exam: Present: other - bilateral feet and ankles wrapped in suzy bandages Neurologic: Present: sensory deficit - no sensation of bilateral feet below the ankle Assessment/Plan - Problems/Diagnosis (1) Osteomyelitis of right foot Problem: Suspected Narrative: Ulcer is of the plantar surface of his right heel. MRI done 06/01/18 reports "Early changes of osteomyelitis versus reactive edema at the plantar aspect of the calcaneus. Plantar fasciitis, which could be due to infection. Shallow ulceration of the skin at the heel. No evidence for soft tissue abscess." ESR of 99 on 06/01. PICC placed 06/03 for long-term antibiotics. He is also being seen by Dr. Suarez, and appreciate her assistance. He persistently declines amputation, despite the increased risk of . Debridement performed. Will need aggressive CHF and diabetic management to promote wound healing. He takes very high amounts of U5 100 at home. Starting to have some blood glucose readings less than 200 and this admission. Cultures show Staphylococcus, Serratia marcescens, and group C strep, susceptible to Cipro, which was started on the night of admission. Vancomycin DC'd after discussed with ID in [place]. Will switch antibiotic to Invanz on discharge. WBC not elevated since admission. Will need to check his BMP twice a week, and if his CrCl decreases, will decrease his invanz dose to 500 mg daily. He has no sensation of his feet. The severity of his infections have been discussed with his daily, and he persistently declines surgical intervention. His infection may not clear despite antibiotics. Given his comorbidities of uncontrolled diabetes, CHF, and CKD, his life span is likely limited to less than 6 months. Hospice consult placed for him and his family to discuss options. He is scheduled to discharge to [place] tomorrow. (2) Osteomyelitis of left foot Problem: Acute Narrative: See above. His ulcer on his left foot is in his lateral forefoot. (3) Decubital ulcer Problem: Acute Qualifiers: Pressure injury location: buttock Pressure injury stage: stage 1 Narrative: Sindy De La Cruz was consulted and is also helping address his sacral wound. Appreciate her assistance. Continue Donita and Mepilex. 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 Blood glucose control this admission has been difficult given his high baseline requirements. U500 not available in our facility. Better control has been achieved over the last day or 2 with 80 units of Lantus twice daily, and very high sliding scale insulin. The goal is to have his blood sugars less than 200 for optimum wound healing. (5) CHF (congestive heart failure) Problem: Chronic Qualifiers: Heart failure chronicity: acute on chronic Narrative: He has been getting 80 mg IV lasix daily, without significant change in his weight. Am reluctant to increase his lasix dose, due to his CKD. Creatinine this morning of 1.72. Lowest creatinine this admission was 1.44 on 06/01. Checking BMP daily while admitted. Anticipate discharging with 80 mg po lasix bid, which will be equivalent to his current IV dose. If any compression is possible, that would be helpful. (6) Anemia Problem: Chronic Narrative: Hemoglobin today of 7.9, this is decreased slightly decreased from previous, but however within margin of error for a lab draw. Will transfuse if less than 7.0. He is asymptomatic. Blood pressure and heart rate appropriate. (7) Ureterolithiasis Problem: Chronic Narrative: He reports having had a stent placed approximately 5 weeks ago. Will need to follow up with urology after DC. Some of his current back pain may be secondary to his ureteral stent. (8) Stage 3 chronic kidney disease Problem: Chronic Narrative: Essentially, no significant change since admission. Will need to use lasix judiciously, and monitor bid after DC while on invanz.
[2018-06-07] MEDS: ROSUVASTATIN CALCIUM 20 MG TABLET PO SCH (16:55)
[2018-06-07] MEDS: GABAPENTIN 300 MG CAPSULE PO SCH (16:55)
--- NOTE | 2018-06-07 17:08 | PN ---
Subjective - Date and Time Seen Date: 06/07/18 Time: 16:30 Subjective Narrative: Pt evaluated in bedside chair resting. Denies any pain in his feet. Denies any N/V/F, admits SOB, mostly with activity. States that he continues having some low back pain and is cold most of the time, but without fevers. Still wishes to continue with conservative treatment of his foot ulcerations. Remains in agreement with long-term IV ABX and wound debridement. Continues to refuse surgical care even with continued efforts to educate on severity of infection and low likelihood of healing without surgical management. Awaiting transfer to nursing facility. Will be transferring to [facility], likely tomorrow. Objective - Review of Systems Generalized/Overall Review: Denies: Fever Respiratory: Reports: Shortness of Breath Cardiac: Reports: Edema Abdominal: Denies: Nausea, Vomiting Musculoskeletal Complaints: Reports: Back Pain Neurological: Reports: Numbness Skin: Reports: Other - bilateral foot ulcerations - Vitals Vitals: Last Vital Signs Temp 37.3 C 06/07/18 14:18 Pulse 76 06/07/18 14:18 Resp 20 06/07/18 14:18 BP 108/43 06/07/18 14:18 Pulse Ox 90 L 06/07/18 14:18 - Abnormal Lab Findings Abnormal Lab Findings: Abnormal Lab Results 06/07/18 06/07/18 Range/Units 06:25 06:25 RBC 2.89 L (4.7-6.0) M/mm3 Hgb 7.9 L* (13.5-18.0) gm/dL Hct 25.0 L (42.0-52.0) % MCHC 31.6 L (32-36) g/dl RDW 15.4 H (11.5-14.0) % Immature Gran % (Auto) 3.40 H (0.001-0.429) % Immature Gran # (Auto) 0.30 H (0.000-0.0310) K/mm3 Neutrophils % 78.5 H (42-75.0) % Lymphocytes % 8.6 L (20-51) % Neutrophils # 6.9 H (1.3-6.0) K/mm3 Lymphocytes # 0.75 L (1.5-3.5) k/mm3 BUN 33 H (6-23) mg/dL Creatinine 1.72 H (0.4-1.4) mg/dL Est GFR (Non-Af Amer) 42 L (60-130) mL/min Random Glucose 167 H (70-110) mg/dL - Exam Constitutional: Present: Alert, Oriented x3, Cooperative Extremity: Present: lower extremity edema Skin Exam: Present: other - Ulcerations to left plantar 5th metatarsal head and right plantar heel still with black, necrotic tissue. There is some granulation tissue developing about the immediate wound margins, but majority of ulcerations remain necrotic. Malodor remains present bilaterally. Drainage has reduced, no longer with macerated skin margins. Today the 5th toe appears to be slightly dusky in color in comparison to adjacent toes. Will colin on comp ression with quick color return, but color does not return to the same pink as the neighboring toes. Neurologic: Present: sensory deficit Appearance: Present: appropriate appearance Assessment/Plan Plan Narrative: Continued discussion on severity of ulcerations and infections in his feet. Again educated on possible surgical care that can be done to remove infected bone, which would increase his likelihood of healing. Discussed concerns with color change of the left 5th toe and concerns for possibly needing to have this toe amputated if it does not show improvement, or if it worsens. Pt still refusing any surgical care. Continued education on how quickly these infections can progress, and again advised that they can become life-threatening. States understanding of these risks. He is in agreement with continued local wound care and long-term IV ABX. Ulcerations dressed with Santyl, dry gauze, kerlix, and MARU bandage. Will continue with daily dressing changes at nursing facility on d/c. I will continue to change while he remains in hospital. Will plan weekly wound evaluation and treatment [facility]. Will continue to educate on ulcerations and infections. 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
[2018-06-07] MEDS: DOXAZOSIN MESYLATE 2 MG TABLET PO SCH (20:21)
[2018-06-08] MEDS: ACETAMINOPHEN 325 MG TABLET PO PRN (03:56)
[2018-06-08] MEDS: HEPARIN SOD.,PORCINE 100 UNITS/ML IV PRN (03:57)
[2018-06-08 05:55] LABS: Hematocrit 24.3 % (42.0-52.0); Mean Cell Volume 86.2 fl (78-100); Mean Corpuscular Hemoglobin 27.7 pg (27-31); Mean Corpuscular Hgb Conc 32.1 g/dl (32-36); Mean Platelet Volume 10.7 fl (8-11.3); Neutrophil % 79.1 % (42-75.0); Platelet Count 159 K/mm3 (150-450); Red Blood Count 2.82 M/mm3 (4.7-6.0); Red Cell Distribution Width 15.3 % (11.5-14.0); White Blood Count 8.8 K/mm3 (4.0-10.5)
[2018-06-08 06:04] LABS: Anion Gap 13.6 mmol/L (6.8-13.8); Calcium * 8.4 mg/dL (7.9-10.9); Estimated Creat Clear 42.1; Potassium 3.6 mmol/L (3.4-4.6)
[2018-06-08 06:16] LABS: Hemoglobin 7.8 gm/dL (13.5-18.0)
[2018-06-08] MEDS: INSULIN LISPRO 100 UNITS/ML VIAL SC SCH (06:49)
[2018-06-08] MEDS: PANTOPRAZOLE SODIUM 20 MG TABLET.DR PO SCH (06:50)
--- NOTE | 2018-06-08 08:27 | DS ---
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 Ulcer of his right foot is of the plantar surface of his right heel, and his left foot is of the lateral forefoot. MRI done 06/01/18 reports "Early changes of osteomyelitis versus reactive edema at the plantar aspect of the calcaneus. Plantar fasciitis, which could be due to infection. Shallow ulceration of the skin at the heel. No evidence for soft tissue abscess." MRI of the left shows " Nonspecific edema of the fifth proximal phalanx and the fifth metatarsal head as above. Consider early changes of osteomyelitis versus reactive edema due to adjacent cellulitis/inflammatory/septic arthritis." ESR of 99 on 06/01. PICC placed 06/03 for long-term antibiotics. He is also being seen by Dr. Suarez, and appreciate her assistance. He persistently declines amputation, despite the increased risk of . Debridement performed. Will continue santyl for his wounds. Will need aggressive CHF and diabetic management to promote wound healing. He takes very high amounts of U5 100 at home. Starting to have some blood glucose readings less than 200 and this admission. Cultures show Staphylococcus, Serratia marcescens, and group C strep, susceptible to Cipro, which was started on the night of admission. Vancomycin DC'd after discussed with ID in [place]. Will switch antibiotic to Invanz on discharge. WBC not elevated since admission. Will need to check his BMP twice a week, and if his CrCl decreases, will decrease his invanz dose to 500 mg daily. He has no sensation of his feet. The severity of his infections have been discussed with his daily, and he persistently declines surgical intervention. His infection may not clear despite antibiotics. Given his comorbidities of uncontrolled diabetes, CHF, and CKD, his life span is likely limited to less than 6 months. Hospice consult placed for him and his family to discuss options. Will continue Donita and mepilex dressing to his stage I sacral ulcer. DM - His home regimen is 150 units of U500 in the mornings with breakfast, and 40-50 units with lunch and dinner. Blood glucose control this admission has been difficult given his high baseline requirements. U500 not available in our facility. Better control has been achieved with 80 units of Lantus twice daily, and very high sliding scale insulin. The goal is to have his blood sugars less than 200 for optimum wound healing. Anemia - Hemoglobin today of 7.8, this is decreased slightly decreased from previous, but however within margin of error for a lab draw. Essentially unchanged over the last several days. He is asymptomatic. Blood pressure and heart rate appropriate. Ureterolithiasis - he reports having had a stent placed approximately 5 weeks ago. Will need to follow up with urology after DC. Some of his current back pain may be secondary to his ureteral stent. CKD - Essentially, no significant change since admission. Lasix was used j udiciously for his CHF. Recommend bid BMPs after DC while on invanz. Procedures Performed: see notes below - Ulcer debridement Results and Findings: Lab Pending Results 05/30/18 17:28: Urine Color Brown, Urine Appearance Cloudy, Urine pH 5.5, Ur Specific Buckner 1.025, Urine Protein 100 H, Urine Glucose (UA) 100 H, Urine Ketones Negative, Urine Blood 250 H, Urine Nitrate Negative, Urine Bilirubin Negative, Prot Sulfosalicylic Acd 4+ H, Urine Urobilinogen Normal, Ur Leukocyte Esterase 25 H, Urine RBC >50 H, Urine WBC 5-10 H, Ur Epithelial Cells 0-5, Amorphous Sediment Moderate - 2+ H, Urine Bacteria 1+ H, Urine Culture Comments Culture to follow 05/30/18 17:44: WBC 8.7, RBC 3.04 L, Hgb 8.6 L, Hct 26.7 L, MCV 87.8, MCH 28.3, MCHC 32.2, RDW 15.2 H, Plt Count 159, MPV 10.4, Immature Gran % (Auto) 0.60 H, Immature Gran # (Auto) 0.05 H, Neutrophils % 82.5 H, Lymphocytes % 7.1 L, Monocytes % 8.6, Eosinophils % 1.0, Basophils % 0.2, Nucleated RBC % 0.0, Neutrophils # 7.2 H, Lymphocytes # 0.62 L, Monocytes # 0.8, Eosinophils # 0.1, Absolute Basophils 0.0 05/30/18 17:44: Sodium 135, Plasma Sodium 137, Potassium 4.1, Chloride 101, Carbon Dioxide 23.8 L, Anion Gap 14.3 H, BUN 29 H, Creatinine 1.60 H, Est GFR (Non-Af Amer) 46 L, BUN/Creatinine Ratio 18.1, Random Glucose 250 H, Calcium 8.7, Calcium Adj for Albumin 9.5, Total Bilirubin 0.7, AST 43, ALT 34, Alkaline Phosphatase 197 H, Troponin I Less than 0.017, C-Reactive Prot, Quant 13.3 H, B- Natriuretic Peptide 4342 H, Total Protein 7.6, Albumin 2.6 L, Serum Ketones Negative 05/30/18 17:44: Procalcitonin 0.69 H 05/30/18 17:44: Lactic Acid, Venous 2.2 H* 05/30/18 20:30: Lactic Acid, Venous 2.0 05/31/18 09:29: Stl C.difficile Tox A&B Negative 05/31/18 18:55: Random Glucose 497 H D 06/01/18 06:10: WBC 8.0, RBC 2.98 L, Hgb 8.4 L, Hct 26.4 L, MCV 88.6, MCH 28.2, MCHC 31.8 L, RDW 15.2 H, Plt Count 157, MPV 11.2, Immature Gran % (Auto) 1.10 H, Immature Gran # (Auto) 0.09 H, Neutrophils % 81.1 H, Lymphocytes % 8.0 L, Monocytes % 7.7, Eosinophils % 1.6, Basophils % 0.5, Nucleated RBC % 0.0, Neutrophils # 6.5 H, Lymphocytes # 0.64 L, Monocytes # 0.6, Eosinophils # 0.1, Absolute Basophils 0.0 06/01/18 06:10: Sodium 133, Plasma Sodium 135, Potassium 4.0, Chloride 102, Carbon Dioxide 20.9 L, Anion Gap 14.1 H, BUN 32 H, Creatinine 1.44 H, Est GFR (Non-Af Amer) 52 L, BUN/Creatinine Ratio 22.2 H, Random Glucose 226 H D, Calcium 8.3 06/01/18 12:35: ESR 99 H 06/02/18 05:05: WBC 7.6, RBC 3.12 L, Hgb 8.7 L, Hct 27.4 L, MCV 87.8, MCH 27.9, MCHC 31.8 L, RDW 15.3 H, Plt Count 161, MPV 11.1, Immature Gran % (Auto) 1.10 H, Immature Gran # (Auto) 0.08 H, Neutrophils % 80.9 H, Lymphocytes % 7.9 L, Monocytes % 7.5, Eosinophils % 2.1, Basophils % 0.5, Nucleated RBC % 0.0, Neutrophils # 6.1 H, Lymphocytes # 0.60 L, Monocytes # 0.6, Eosinophils # 0.2, Absolute Basophils 0.0 06/02/18 05:05: Sodium 133, Plasma Sodium 135, Potassium 4.4, Chloride 101, Carbon Dioxide 20.9 L, Anion Gap 15.5 H, BUN 32 H, Creatinine 1.53 H, Est GFR (Non-Af Amer) 48 L, BUN/Creatinine Ratio 20.9, Random Glucose 255 H, Calcium 8.4 06/02/18 07:34: Creatinine 1.47 H, Vancomycin Trough 26.8 H 06/03/18 05:28: WBC 8.2, RBC 2.96 L, Hgb 8.2 L, Hct 25.8 L, MCV 87.2, MCH 27.7, MCHC 31.8 L, RDW 15.1 H, Plt Count 183, MPV 10.5, Immature Gran % (Auto) 1.60 H, Immature Gran # (Auto) 0.13 H, Neutrophils % 79.7 H, Lymphocytes % 7.8 L, Monocytes % 8.6, Eosinophils % 1.9, Basophils % 0.4, Nucleated RBC % 0.0, Neutrophils # 6.6 H, Lymphocytes # 0.64 L, Monocytes # 0.7, Eosinophils # 0.2, Absolute Basophils 0.0 06/03/18 05:28: Sodium 135, Plasma Sodium 138, Potassium 4.0, Chloride 101, Carbon Dioxide 24.3, Anion Gap 13.7, BUN 33 H, Creatinine 1.66 H, Est GFR (Non- Af Amer) 44 L, BUN/Creatinine Ratio 19.9, Random Glucose 271 H, Calcium 8.4 06/04/18 06:15: WBC 7.9, RBC 2.92 L, Hgb 8.1 L, Hct 25.0 L, MCV 85.6, MCH 27.7, MCHC 32.4, RDW 15.2 H, Plt Count 172, MPV 10.6, Immature Gran % (Auto) 2.20 H, Immature Gran # (Auto) 0.17 H, Neutrophils % 78.0 H, Lymphocytes % 9.4 L, Monocytes % 8.1, Eosinophils % 1.9, Basophils % 0.4, Nucleated RBC % 0.0, Neutrophils # 6.1 H, Lymphocytes # 0.74 L, Monocytes # 0.6, Eosinophils # 0.2, Absolute Basophils 0.0 06/04/18 06:15: Sodium 135, Plasma Sodium 138, Potassium 4.0, Chloride 100, Carbon Dioxide 24.9, Anion Gap 14.1 H, BUN 32 H, Creatinine 1.66 H, Est GFR (Non-Af Amer) 44 L, BUN/Creatinine Ratio 19.3, Random Glucose 264 H, Calcium 8.5 06/05/18 05:10: WBC 8.6, RBC 2.92 L, Hgb 8.0 L, Hct 25.1 L, MCV 86.0, MCH 27.4, MCHC 31.9 L, RDW 15.3 H, Plt Count 185, MPV 10.7, Immature Gran % (Auto) 2.70 H, Immature Gran # (Auto) 0.23 H, Neutrophils % 77.6 H, Lymphocytes % 8.8 L, Monocytes % 8.3, Eosinophils % 2.1, Basophils % 0.5, Nucleated RBC % 0.0, Neutrophils # 6.7 H, Lymphocytes # 0.75 L, Monocytes # 0.7, Eosinophils # 0.2, Absolute Basophils 0.0 06/05/18 05:10: Sodium 133, Plasma Sodium 136, Potassium 3.9, Chloride 100, Carbon Dioxide 25.3, Anion Gap 11.6, BUN 33 H, Creatinine 1.74 H, Est GFR (Non- Af Amer) 41 L, BUN/Creatinine Ratio 19.0, Random Glucose 291 H, Calcium 8.3 06/06/18 06:10: WBC 8.1, RBC 2.95 L, Hgb 8.1 L, Hct 25.4 L, MCV 86.1, MCH 27.5, MCHC 31.9 L, RDW 15.3 H, Plt Count 174, MPV 10.1, Immature Gran % (Auto) 3.80 H, Immature Gran # (Auto) 0.31 H, Neutrophils % 74.5, Lymphocytes % 10.5 L, Monocytes % 8.4, Eosinophils % 2.2, Basophils % 0.6, Nucleated RBC % 0.0, Neutrophils # 6.0, Lymphocytes # 0.85 L, Monocytes # 0.7, Eosinophils # 0.2, Absolute Basophils 0.1 06/06/18 06:10: Sodium 136, Plasma Sodium 138, Potassium 3.8, Chloride 101, Carbon Dioxide 27.7, Anion Gap 11.1, BUN 34 H, Creatinine 1.77 H, Est GFR (Non- Af Amer) 41 L, BUN/Creatinine Ratio 19.2, Random Glucose 199 H D, Calcium 8.6 06/07/18 06:25: WBC 8.7, RBC 2.89 L, Hgb 7.9 L*, Hct 25.0 L, MCV 86.5, MCH 27.3, MCHC 31.6 L, RDW 15.4 H, Plt Count 176, MPV 10.5, Immature Gran % (Auto) 3.40 H, Immature Gran # (Auto) 0.30 H, Neutrophils % 78.5 H, Lymphocytes % 8.6 L, Monocytes % 7.3, Eosinophils % 1.9, Basophils % 0.3, Nucleated RBC % 0.0, Neutrophils # 6.9 H, Lymphocytes # 0.75 L, Monocytes # 0.6, Eosinophils # 0.2, Absolute Basophils 0.0 06/07/18 06:25: Sodium 137, Plasma Sodium 138, Potassium 3.7, Chloride 101, Carbon Dioxide 26.8, Anion Gap 12.9, BUN 33 H, Creatinine 1.72 H, Est GFR (Non- Af Amer) 42 L, BUN/Creatinine Ratio 19.2, Random Glucose 167 H, Calcium 8.4 06/08/18 05:30: WBC 8.8, RBC 2.82 L, Hgb 7.8 L*, Hct 24.3 L, MCV 86.2, MCH 27.7, MCHC 32.1, RDW 15.3 H, Plt Count 159, MPV 10.7, Immature Gran % (Auto) 1.90 H, Immature Gran # (Auto) 0.17 H, Neutrophils % 79.1 H, Lymphocytes % 9.1 L, Monocytes % 7.3, Eosinophils % 2.0, Basophils % 0.6, Nucleated RBC % 0.0, Neutrophils # 7.0 H, Lymphocytes # 0.80 L, Monocytes # 0.6, Eosinophils # 0.2, Absolute Basophils 0.1 06/08/18 05:30: Sodium 138, Plasma Sodium 138, Potassium 3.6, Chloride 100, Carbon Dioxide 28.0, Anion Gap 13.6, BUN 34 H, Creatinine 1.79 H, Est GFR (Non- Af Amer) 40 L, BUN/Creatinine Ratio 19.0, Random Glucose 109 D, Calcium 8.4 Discharge Location: [facility] Disposition: SNF Condition: Poor Level of Care: SNF Discharge Activity: Activity as tolerated Discharge Diet: Consistent carbs Half-Way Therapy: Physicial Therapy, Occupation Therapy Referrals: Carolnan Pride DO [Primary Care Provider] - Additional Patient Instructions (free text): -Please make TCM appointment unless intermediate discharge. Thank you! Vanessa @ [phone]. Prescriptions (Any new or edited meds): 0.9 % Sodium Chloride [Normal Saline Flush] 10 ml IV PRN #2 box Collagenase Clostridium Hist. [Santyl] 1 appl TP DAILY #1 tube Ertapenem Sodium [Invanz] 1 gm IV DAILY 35 Days #35 vial.port Heparin Sodium,Porcine/Pf [Heparin Lock Flush Syringe] 100 units IV QSHIFT PRN 14 Days disp.syrin PRN Reason: prevent PICC line clotting Complete Home Medications List: Complete Home Medication List: Omeprazole [Prilosec] 20 mg PO DAILY 04/03/16 Atorvastatin Calcium 40 mg PO QPM 03/12/18 Amlodipine Besylate 10 mg PO DAILY 05/30/18 Apixaban [Eliquis] 5 mg PO BID 05/30/18 Carvedilol [Coreg] 25 mg PO BID 05/30/18 Cholecalciferol (Vitamin D3) [Vitamin D3] 1,000 unit PO DAILY 05/30/18 Clobetasol Propionate 15 gm TOPICAL BID 05/30/18 Doxazosin Mesylate 16 mg PO HS 05/30/18 Gabapentin 100 mg PO DAILY 05/30/18 Gabapentin 300 mg PO QPM 05/30/18 Insulin Regular, Human [Humulin R U-500 Kwikpen] 60 unit SQ HS 05/30/18 Insulin Regular, Human [Humulin R U-500 Kwikpen] 100 unit SQ 0700,1200,1700 05/30/18 0.9 % Sodium Chloride [Normal Saline Flush] 10 ml IV PRN #2 box 06/08/18 Collagenase Clostridium Hist. [Santyl] 1 appl TP DAILY #1 tube 06/08/18 Ertapenem Sodium [Invanz] 1 gm IV DAILY 35 Days #35 vial.port 06/08/18 Heparin Sodium,Porcine/Pf [Heparin Lock Flush Syringe] 100 units IV QSHIFT PRN 14 Days disp.syrin 06/08/18 Amb Orders for Discharge: Basic Metabolic Panel Time Frame: 3 Days, Location: Laboratory
[2018-06-08] MEDS: ASPIRIN 325 MG TABLET.DR PO SCH (09:07)
[2018-06-08] MEDS: FUROSEMIDE 10 MG/ML VIAL IV SCH (09:08)
[2018-06-08] MEDS: APIXABAN 5 MG TABLET PO SCH (09:08)
[2018-06-08] MEDS: CARVEDILOL 25 MG TABLET PO SCH (09:08)
[2018-06-08] MEDS: NYSTATIN 15 APPL BTL TP SCH (09:09)
[2018-06-08] MEDS: amLODIPine BESYLATE 10 MG TABLET PO SCH (09:10)
[2018-06-08] MEDS: GABAPENTIN 100 MG CAPSULE PO SCH (09:10)
[2018-06-08] MEDS: INSULIN GLARGINE,HUM.REC.ANLOG 100 UNITS/ML VIAL SC SCH (09:11)
[2018-06-08] MEDS: CIPROFLOXACIN IN 5 % DEXTROSE 400 MG/200 ML BAG IV SCH (09:11)
[2018-06-08] MEDS: COLLAGENASE CLOSTRIDIUM HIST. 30 APPL TUBE TP SCH (09:32)
[2018-06-08 13:56] VITALS: BP 128/49
== END 2018-06-08 10:45 | DRG 464 ==
LOC: ER 16:47 → MS 18:53
PROVIDERS: ADMIT Family Medicine; ATTEND Family Medicine
DX: L97.416 Non-pressure chronic ulcer of right heel and midfoot with bone involvement without evidence of necrosis; Z68.41 Body mass index [BMI] 40.0-44.9, adult; B95.8 Unspecified staphylococcus as the cause of diseases classified elsewhere; L97.412 Non-pressure chronic ulcer of right heel and midfoot with fat layer exposed; Z87.442 Personal history of urinary calculi; E78.5 Hyperlipidemia, unspecified; B96.89 Other specified bacterial agents as the cause of diseases classified elsewhere; E11.621 Type 2 diabetes mellitus with foot ulcer; R01.1 Cardiac murmur, unspecified; D64.9 Anemia, unspecified; L97.526 Non-pressure chronic ulcer of other part of left foot with bone involvement without evidence of necrosis; M72.2 Plantar fascial fibromatosis; R31.9 Hematuria, unspecified; M54.5 Low back pain; Z82.49 Family history of ischemic heart disease and other diseases of the circulatory system; S31.811A Laceration without foreign body of right buttock, initial encounter; E11.22 Type 2 diabetes mellitus with diabetic chronic kidney disease; M86.9 Osteomyelitis, unspecified; N20.1 Calculus of ureter; Z79.4 Long term (current) use of insulin; E11.65 Type 2 diabetes mellitus with hyperglycemia; Z86.718 Personal history of other venous thrombosis and embolism; L97.522 Non-pressure chronic ulcer of other part of left foot with fat layer exposed; B95.4 Other streptococcus as the cause of diseases classified elsewhere; Z79.01 Long term (current) use of anticoagulants; Z86.73 Personal history of transient ischemic attack (TIA), and cerebral infarction without residual deficits; I13.0 Hypertensive heart and chronic kidney disease with heart failure and stage 1 through stage 4 chronic kidney disease, or unspecified chronic kidney disease; E11.69 Type 2 diabetes mellitus with other specified complication; Z79.82 Long term (current) use of aspirin; I50.9 Heart failure, unspecified; E66.01 Morbid (severe) obesity due to excess calories; R06.02 Shortness of breath; N18.3 Chronic kidney disease, stage 3 (moderate); L89.301 Pressure ulcer of unspecified buttock, stage 1; Z82.3 Family history of stroke
CPT/HCPCS: 36415; 70030; 70200; 71010; 71020; 71045; 71046; 73630; 73720; 73723; 80048; 80053; 80202; 81001; 82009; 82565; 82947; 83519; 83605; 83880; 84145; 84484; 85025; 85652; 86140; 87040; 87070; 87077; 87081; 87086; 87186; 87493; 93005; 94640; 96365; 96375; 99285

== ENCOUNTER 2018-06-09 14:39 | Inpatient (IN) ==
[2018-06-09] MEDS ORDERED: ERTAPENEM SODIUM 1,000 MG in NORMAL SALINE 50 ML IV SCH (15:00)
[2018-06-09] MEDS: HYDROcodone/ACETAMINOPHEN 1 EACH TABLET PO PRN (15:53)
[2018-06-09] MEDS: ERTAPENEM SODIUM 1,000 MG in NORMAL SALINE 100 ML IV SCH (16:46)
--- NOTE | 2018-06-09 16:46 | HP ---
Chief Complaint - Chief Complaint Date of Service: 06/09/18 Time of Service: 16:46 Chief Complaint: ulcers History of Present Illness: Patient with bilateral diabetic foot ulcers was discharged from our facility yesterday to the [facility]. He was brought to his wound care appointment with Dr. Suarez today, and was found to have a temperature of 38.7, and his left toe had black discoloration. His son reports he does not think he was given his IV antibiotics since discharge, and other family members report that he had not received any of his medications, including insulin. He was able to answer all questions, but appeared more sleepy than at discharge yesterday. Multiple discussions were had with him during his approximate 10 day hospitalization regarding the severity of his ulcers. He declined surgery every time, stating he would rather than lose a foot. He consented to left 5th toe and partial metatarsal amputation today, which is scheduled for tonight. Medical History (Last Reviewed 06/09/18 @ 15:30 by Valdemar Patel RN) DVT (deep venous thrombosis) Unsure which leg; reports had Dx DVT in March 2018 Decubitus skin ulcer Diabetes History of low potassium Hyperlipidemia Hypertension Renal stone Bilateral stones Dx in April 2018; renal stent placed in right kidney [id number] Stroke Onset Date: ~03/2012 Surgical History: Surgical History (Last Reviewed 06/09/18 @ 15:30 by Valdemar Patel RN) Hernia Hiatal hernia History of renal stent Family History: Family History (Last Reviewed 06/09/18 @ 15:30 by Valdemar Patel RN) Mother CVA (cerebral vascular accident) Father Pneumonia Brother Hypertension Colon cancer Brother Hypertension Brother Hypertension Social History: Preferred Language Icelandic Smoking Status Never smoker Abuse History No History of abuse Psych History No pertinent hx No Social History Section defined Review Of Systems (GEN) - Review of Systems Generalized/Overall Review: Present: Fever Respiratory: Absent: Shortness of Breath Cardiac: Present: Edema. Absent: Chest Pain Abdominal: Absent: Vomiting Musculoskeletal: Present: Back Pain Skin: Present: Other - bilateral foot ulcers, sacral ulcer Immunizations: IMMUNIZATION HX Immunizations Up to Date Yes History of Influenza Vaccine Yes Hx Pneumococcal Vaccination Yes Allergies/Adverse Reactions: Allergies Allergy/AdvReac Type Severity Reaction Status Date / Time No Known Allergies Allergy Verified 05/30/18 17:22 Home Medications: HOME MEDICATIONS Omeprazole [Prilosec] 20 mg PO DAILY 04/03/16 [Last Taken Unknown] Atorvastatin Calcium 40 mg PO QPM 03/12/18 [Last Taken Unknown] Amlodipine Besylate 10 mg PO DAILY 05/30/18 [Last Taken Unknown] Apixaban [Eliquis] 5 mg PO BID 05/30/18 [Last Taken Unknown] Carvedilol [Coreg] 25 mg PO BID 05/30/18 [Last Taken Unknown] Cholecalciferol (Vitamin D3) [Vitamin D3] 1,000 unit PO DAILY 05/30/18 [Last Taken Unknown] Clobetasol Propionate 15 gm TOPICAL BID 05/30/18 [Last Taken Unknown] Doxazosin Mesylate 16 mg PO HS 05/30/18 [Last Taken Unknown] Gabapentin 100 mg PO DAILY 05/30/18 [Last Taken Unknown] Gabapentin 300 mg PO QPM 05/30/18 [Last Taken Unknown] Insulin Regular, Human [Humulin R U-500 Kwikpen] 60 unit SQ HS 05/30/18 [Last Taken Unknown] Insulin Regular, Human [Humulin R U-500 Kwikpen] 100 unit SQ 0700,1200,1700 05/30/18 [Last Taken Unknown] Collagenase Clostridium Hist. [Santyl] 1 appl TOPICAL DAILY #1 tube 06/08/18 [Last Taken Unknown] 0.9 % Sodium Chloride [Normal Saline Flush] 10 ml IV Q2H PRN 06/09/18 [Last Taken Unknown] Acetaminophen [Tylenol] 650 mg PO Q6H PRN 06/09/18 [Last Taken Unknown] Ertapenem Sodium [Invanz] 1 gm IV 1400 06/09/18 [Last Taken Unknown] Magnesium Hydroxide [Milk Of Magnesia] 30 ml PO DAILY PRN 06/09/18 [Last Taken Unknown] Exam - Exam Vital Signs: Vital Signs - Last Taken Temp 38.1 C H 06/09/18 15:27 Pulse 82 06/09/18 15:27 Resp 20 06/09/18 15:27 BP 138/57 06/09/18 15:27 Pulse Ox 90 L 06/09/18 15:27 Constitutional: Present: Somnolent - more sleepy than yesterday, intermittent rigor, Elderly, Morbidly obese Respiratory: Present: decreased breath sounds. Absent: crackles, rhonchi Cardiovascular/Chest: Present: regular rate, rhythm Abdomen: Present: obese, other - possible incontinence during exam Extremity: Present: lower extremity edema - 2+ bilaterall Skin Exam: Present: other - discoloration of left toe, deferred extensive foot exam Assessment/Plan - Assessment/Plan (1) Fever Assessment: Temperature of 38.1. Likely secondary to ulcers, and not receiving antibiotics since discharge yesterday. Blood cultures pending. WBC not elevated at 10.1. Will use tylenol for fever. He is going to the OR this evening for left 5th digit amputation. He received cipro while hospitalized. His case was discussed with ID in [place], who recommended invanz termite helper. This has been started. He also has a ureteral stent, placed approximately 6 weeks ago. Will also check urine culture. Problem: Acute (2) Osteomyelitis of right foot Problem: Acute (3) CHF (congestive heart failure) Problem: Chronic Qualifiers: Heart failure chronicity: acute on chronic (4) Anemia Problem: Chronic (5) Stage 3 chronic kidney disease Problem: Chronic (6) Ureterolithiasis Problem: Chronic (7) Diabetes mellitus type 2 with complications Assessment: Diabetes difficult to control during admission. Will continue 80 mg lantus bid, and very high sliding scale humalog with meals and hs. Problem: Chronic
[2018-06-09 16:57] LABS: Hematocrit 26.5 % (42.0-52.0); Hemoglobin 8.2 gm/dL (13.5-18.0); Mean Cell Volume 88.3 fl (78-100); Mean Corpuscular Hemoglobin 27.3 pg (27-31); Mean Corpuscular Hgb Conc 30.9 g/dl (32-36); Neutrophil # 8.7 K/mm3 (1.3-6.0); Neutrophil % 85.7 % (42-75.0); Platelet Count 139 K/mm3 (150-450); Red Cell Distribution Width 15.9 % (11.5-14.0); White Blood Count 10.1 K/mm3 (4.0-10.5)
[2018-06-09 17:06] LABS: Albumin * 2.5 gm/dl (3.4-5.0); BUN/Creatinine Ratio 19.1 (9.0-21.6); Bilirubin, Total 0.5 mg/dL (0.0-1.1); Ca. Corrected For Albumin 9.6 mg/dL (8.4-10.2); Calcium * 8.7 mg/dL (7.9-10.9); Carbon Dioxide 27.4 mmol/L (24-32.6); Potassium 3.4 mmol/L (3.4-4.6); Total Protein 7.7 gm/dL (6.2-8.2)
[2018-06-09] MEDS ORDERED: DEXTROSE 50%-WATER 50 ML SYRG ONE (18:39)
--- NOTE | 2018-06-09 18:57 | ANES ---
Anesthesia Pre Procedure Eval Vitals/Labs: Last Vital Signs Temp 38.1 C H 06/09/18 15:27 Pulse 81 06/09/18 15:27 Resp 20 06/09/18 15:27 BP 138/57 06/09/18 15:27 Pulse Ox 90 L 06/09/18 15:27 HOME MEDICATIONS Omeprazole [Prilosec] 20 mg PO DAILY 04/03/16 [Last Taken Unknown] Atorvastatin Calcium 40 mg PO QPM 03/12/18 [Last Taken Unknown] Amlodipine Besylate 10 mg PO DAILY 05/30/18 [Last Taken Unknown] Apixaban [Eliquis] 5 mg PO BID 05/30/18 [Last Taken Unknown] Carvedilol [Coreg] 25 mg PO BID 05/30/18 [Last Taken Unknown] Cholecalciferol (Vitamin D3) [Vitamin D3] 1,000 unit PO DAILY 05/30/18 [Last Taken Unknown] Clobetasol Propionate 15 gm TOPICAL BID 05/30/18 [Last Taken Unknown] Doxazosin Mesylate 16 mg PO HS 05/30/18 [Last Taken Unknown] Gabapentin 100 mg PO DAILY 05/30/18 [Last Taken Unknown] Gabapentin 300 mg PO QPM 05/30/18 [Last Taken Unknown] Insulin Regular, Human [Humulin R U-500 Kwikpen] 60 unit SQ HS 05/30/18 [Last Taken Unknown] Insulin Regular, Human [Humulin R U-500 Kwikpen] 100 unit SQ 0700,1200,1700 05/30/18 [Last Taken Unknown] Collagenase Clostridium Hist. [Santyl] 1 appl TOPICAL DAILY #1 tube 06/08/18 [Last Taken Unknown] 0.9 % Sodium Chloride [Normal Saline Flush] 10 ml IV Q2H PRN 06/09/18 [Last Taken Unknown] Acetaminophen [Tylenol] 650 mg PO Q6H PRN 06/09/18 [Last Taken Unknown] Ertapenem Sodium [Invanz] 1 gm IV 1400 06/09/18 [Last Taken Unknown] Magnesium Hydroxide [Milk Of Magnesia] 30 ml PO DAILY PRN 06/09/18 [Last Taken Unknown] Allergies/Adverse Reactions: Allergies Allergy/AdvReac Type Severity Reaction Status Date / Time No Known Allergies Allergy Verified 05/30/18 17:22 - Planned Procedure Planned Procedure: DIABETIC ULCER FEVER Medication List Reviewed:: Yes Allergies Verified: Yes Medical History (Last Reviewed 06/09/18 @ 18:55 by Larry Huston CRNA) DVT (deep venous thrombosis) Unsure which leg; reports had Dx DVT in March 2018 Decubitus skin ulcer Diabetes History of low potassium Hyperlipidemia Hypertension Renal stone Bilateral stones Dx in April 2018; renal stent placed in right kidney Decemeber 2018 Stroke Onset Date: ~03/2012 Surgical History (Last Reviewed 06/09/18 @ 18:55 by Larry Huston CRNA) Hernia Hiatal hernia History of renal stent Family History (Last Reviewed 06/09/18 @ 18:56 by Larry Huston CRNA) Mother CVA (cerebral vascular accident) Father Pneumonia Brother Hypertension Colon cancer Brother Hypertension Brother Hypertension - Family Anesthesia History Family History:: no untoward family reactions to anesthesia - Airway/Neck/Teeth Teeth Condition: intact Neck Exam: limited range of motion Mallampatti Score: 3 Thyromental (T-M) distance: > 6 cm Mandibulo Hyoid distance: > 3 cm - Respiratory Respiratory Physical: lungs clear Smoking Status: Former smoker Sleep Apnea currently treated: No Sleep Apnea by current assessment: No - Cardiovascular Cardiac History: CAD, hypertension, hyperlipidemia Tolerate Activity: Poor Heart Sounds: S1 & S2, Regular, Murmur - Anesthesia Assessment and Plan ASA Class: PS, IV, E Anesthesia Type Plan: MAC Planned difficult intubation/equipment available: No
--- NOTE | 2018-06-09 19:04 | PN ---
Subjective - Date and Time Seen Date: 06/09/18 Time: 18:57 Subjective Narrative: Pt evaluated for pre-op for anticipated partial 5th ray amputation this evening. Family in room. Patient does not have any questions regarding surgery at this time. Just "wants to get it done." Objective - Review of Systems Generalized/Overall Review: Reports: Weakness, Chills, Fever, Malaise Respiratory: Reports: Shortness of Breath Musculoskeletal Complaints: Reports: Back Pain, Muscle Pain Neurological: Reports: Numbness Skin: Reports: Other - bilateral foot ulcerations - Vitals Vitals: Last Vital Signs Temp 38.1 C H 06/09/18 15:27 Pulse 81 06/09/18 15:27 Resp 20 06/09/18 15:27 BP 138/57 06/09/18 15:27 Pulse Ox 90 L 06/09/18 15:27 - Abnormal Lab Findings Abnormal Lab Findings: Abnormal Lab Results 06/09/18 06/09/18 Range/Units 15:22 15:58 RBC 3.00 L (4.7-6.0) M/mm3 Hgb 8.2 L (13.5-18.0) gm/dL Hct 26.5 L (42.0-52.0) % MCHC 30.9 L (32-36) g/dl RDW 15.9 H (11.5-14.0) % Plt Count 139 L (150-450) K/mm3 Immature Gran % (Auto) 1.30 H (0.001-0.429) % Immature Gran # (Auto) 0.13 H (0.000-0.0310) K/mm3 Neutrophils % 85.7 H (42-75.0) % Lymphocytes % 6.3 L (20-51) % Neutrophils # 8.7 H (1.3-6.0) K/mm3 Lymphocytes # 0.64 L (1.5-3.5) k/mm3 Anion Gap 14.0 H (6.8-13.8) mmol/L BUN 35 H (6-23) mg/dL Creatinine 1.83 H (0.4-1.4) mg/dL Est GFR (Non-Af Amer) 39 L (60-130) mL/min AST 77 H (0-48) U/L Alkaline Phosphatase 297 H (50-170) U/L Albumin 2.5 L (3.4-5.0) gm/dl - Exam Constitutional: Present: Alert, Cooperative, Acute distress Skin Exam: Present: other - Necrotic ulcerations to the right heel and left plantar 5th metatarsal head. Left 5th toe with gangrenous changes, black in color. Foul odor present. Bone exposed. Unchanged from wound visit earlier today Neurologic: Present: sensory deficit Assessment/Plan Plan Narrative: Pt with gangrenous changes to the left 5th toe. Advise partial 5th ray amputation as discussed in wound center. Pt and family in agreement. Due to rapidly declining health, will plan to go to OR tonight. Discussed with family riskes of surgery, including possible due to severity of his condition. Family states understanding. Consent signed, has been NPO.
[2018-06-09] MEDS ORDERED: DEXTROSE 50%-WATER 50 ML SYRG IV ONE ×2 (19:06→21:30)
[2018-06-09] MEDS ORDERED: DEXTROSE 5 % IN WATER 1,000 ML IV PRN ×2 (19:19→22:44)
[2018-06-09] MEDS ORDERED: DEXTROSE 5%-LACTATED RINGERS 1,000 ML IV PRN (19:20)
[2018-06-09] MEDS ORDERED: BUPIVACAINE HCL 50 ML VIAL IJ ONE (19:41)
[2018-06-09] MEDS ORDERED: BACITRACIN 50,000 UNITS VIAL IR ONE (19:42)
[2018-06-09] MEDS ORDERED: LIDOCAINE HCL/PF 5 ML VIAL IJ ONE (19:42)
--- NOTE | 2018-06-09 20:20 | ANES ---
Post Anesthesia Discharge - Transfer of Care Transfer of Care handoff given to nurse: Yes - Anesthesia Post Op Note Anesthesia Post Op Note: Care transferred to med-oral and maxillofacial surgery
--- NOTE | 2018-06-09 20:21 | ANES ---
Post Anesthesia Assessment - Vital Signs Vitals: Last Vital Signs Temp 38.1 C H 06/09/18 15:27 Pulse 81 06/09/18 15:27 Resp 20 06/09/18 15:27 BP 138/57 06/09/18 15:27 Pulse Ox 90 L 06/09/18 15:27 Airway Patency: Normal - Mental Status Level Of Consciousness: Sleeping - Pain Level Pain Score: 0 - N/V Assessment Nausea/Vomiting Presence: None Dehydration:: No
[2018-06-09] MEDS ORDERED: MORPHINE SULFATE 2 MG/ML DISP.SYRIN ONE (20:51)
[2018-06-09] MEDS ORDERED: MORPHINE SULFATE 2 MG/ML DISP.SYRIN IV ONE (20:57)
[2018-06-09] MEDS ORDERED: ACETAMINOPHEN 325 MG TABLET PO PRN (21:20)
[2018-06-09] MEDS ORDERED: ALBUTEROL SULFATE 2.5 MG/0.5 ML VIAL.NEB IH PRN (21:20)
[2018-06-10] MEDS: CARVEDILOL 25 MG TABLET PO SCH ×3 (00:17→22:40)
[2018-06-10 05:37] LABS: Hematocrit 24.2 % (42.0-52.0); Mean Cell Volume 88.6 fl (78-100); Mean Corpuscular Hemoglobin 26.7 pg (27-31); Mean Corpuscular Hgb Conc 30.2 g/dl (32-36); Mean Platelet Volume 11.1 fl (8-11.3); Neutrophil # 7.2 K/mm3 (1.3-6.0); Neutrophil % 82.6 % (42-75.0); Platelet Count 157 K/mm3 (150-450); Red Blood Count 2.73 M/mm3 (4.7-6.0); Red Cell Distribution Width 15.8 % (11.5-14.0); White Blood Count 8.7 K/mm3 (4.0-10.5)
[2018-06-10 05:40] LABS: Albumin * 1.9 gm/dl (3.4-5.0); Anion Gap 11.7 mmol/L (6.8-13.8); BUN/Creatinine Ratio 18.3 (9.0-21.6); Bilirubin, Total 0.4 mg/dL (0.0-1.1); Ca. Corrected For Albumin 9.4 mg/dL (8.4-10.2); Carbon Dioxide 27.3 mmol/L (24-32.6)
[2018-06-10 06:05] LABS: Hemoglobin 7.3 gm/dL (13.5-18.0)
[2018-06-10] MEDS ORDERED: MORPHINE SULFATE 2 MG/ML DISP.SYRIN IV PRN (06:42)
[2018-06-10] MEDS: INSULIN LISPRO 100 UNITS/ML VIAL SC SCH ×3 (07:21→17:10)
[2018-06-10] MEDS: PANTOPRAZOLE SODIUM 20 MG TABLET.DR PO SCH (07:22)
[2018-06-10] MEDS: HYDROcodone/ACETAMINOPHEN 1 EACH TABLET PO PRN ×2 (07:48→13:22)
--- NOTE | 2018-06-10 08:32 | PN ---
Subjective - Date and Time Seen Date: 06/10/18 Time: 08:24 Subjective Narrative: Patient reports feeling similar to yesterday. He does state that he is hungry. He has pain in his legs for the last few weeks that has not been present previously. He states when he has to urinate or have a bowel movement, he has to go immediately. Objective - Review of Systems Generalized/Overall Review: Denies: Fever Respiratory: Denies: Shortness of Breath Cardiac: Reports: Edema Abdominal: Denies: Vomiting Genitourinary Symptoms: Reports: Urgency Musculoskeletal Complaints: Reports: Back Pain, Other - Bilateral lower leg pain Skin: Reports: Other - Bilateral foot wounds, sacral wound - Vitals Vitals: Last Vital Signs Temp 36.6 C 06/10/18 06:20 Pulse 75 06/10/18 06:20 Resp 20 06/10/18 06:20 BP 109/56 06/10/18 06:20 Pulse Ox 93 06/10/18 06:20 - Abnormal Lab Findings Abnormal Lab Findings: Abnormal Lab Results 06/09/18 06/09/18 06/10/18 Range/Units 15:22 15:58 05:25 RBC 3.00 L 2.73 L (4.7-6.0) M/mm3 Hgb 8.2 L 7.3 L* (13.5-18.0) gm/dL Hct 26.5 L 24.2 L (42.0-52.0) % MCH 26.7 L (27-31) pg MCHC 30.9 L 30.2 L (32-36) g/dl RDW 15.9 H 15.8 H (11.5-14.0) % Plt Count 139 L (150-450) K/mm3 Immature Gran % (Auto) 1.30 H 1.30 H (0.001-0.429) % Immature Gran # (Auto) 0.13 H 0.11 H (0.000-0.0310) K/mm3 Neutrophils % 85.7 H 82.6 H (42-75.0) % Lymphocytes % 6.3 L 8.2 L (20-51) % Neutrophils # 8.7 H 7.2 H (1.3-6.0) K/mm3 Lymphocytes # 0.64 L 0.72 L (1.5-3.5) k/mm3 Anion Gap 14.0 H (6.8-13.8) mmol/L BUN 35 H (6-23) mg/dL Creatinine 1.83 H (0.4-1.4) mg/dL Est GFR (Non-Af Amer) 39 L (60-130) mL/min Random Glucose (70-110) mg/dL AST 77 H (0-48) U/L Alkaline Phosphatase 297 H (50-170) U/L Albumin 2.5 L (3.4-5.0) gm/dl 06/10/18 Range/Units 05:25 RBC (4.7-6.0) M/mm3 Hgb (13.5-18.0) gm/dL Hct (42.0-52.0) % MCH (27-31) pg MCHC (32-36) g/dl RDW (11.5-14.0) % Plt Count (150-450) K/mm3 Immature Gran % (Auto) (0.001-0.429) % Immature Gran # (Auto) (0.000-0.0310) K/mm3 Neutrophils % (42-75.0) % Lymphocytes % (20-51) % Neutrophils # (1.3-6.0) K/mm3 Lymphocytes # (1.5-3.5) k/mm3 Anion Gap (6.8-13.8) mmol/L BUN 35 H (6-23) mg/dL Creatinine 1.91 H (0.4-1.4) mg/dL Est GFR (Non-Af Amer) 37 L (60-130) mL/min Random Glucose 268 H D (70-110) mg/dL AST 70 H (0-48) U/L Alkaline Phosphatase 240 H (50-170) U/L Albumin 1.9 L (3.4-5.0) gm/dl - Exam Constitutional: Present: Alert - Looks more comfortable than yesterday afternoon, Cooperative, Morbidly obese Respiratory: Present: decreased breath sounds. Absent: crackles Cardiovascular/Chest: Present: regular rate, rhythm, systolic murmur Abdomen: Present: obese Extremity: Present: lower extremity edema - 2+ bilaterally to the knee, similar to 2 days prior. Skin Exam: Present: other - Bilateral ankles and feet wrapped in Gaurav wrap Neurologic: Present: normal mood/affect - Patient's baseline Assessment/Plan - Problems/Diagnosis (1) Osteomyelitis of right foot Problem: Acute Narrative: Patient had 10-day hospitalization until 06/08. He had declined amputation during the hospitalization. He was discharged to the [facility], and returned yesterday for his wound center appointment, and was febrile and had worsening of his left forefoot wound, with increased necrotic tissue. He did agree to a left fifth digit and partial ray amputation, and this was done yesterday evening. MRI results from 06/01: MRI Lower Ext Joint W/WO RT 1. Early changes of osteomyelitis versus reactive edema at the plantar aspect of the calcaneus. 2. Plantar fasciitis, which could be due to infection. 3. Shallow ulceration of the skin at the heel as above. ESR of 99, and he has been treated for osteomyelitis. Was treated with vanc and cipro initially. His case was discussed with infectious disease in [place], who recommended discontinuing vancomycin, and starting Invanz after DC. He unfortunately did not receive antibiotics after leaving our facility, and Invanz was started CHRISTIANO yesterday after admission. Will adjust his invanz dose as needed based on his creatinine clearance. Pain control with IV morphine today, and as needed [place]. He reports he does not want anything that he can get addicted to, but agrees to temporary narcotic use. Eliquis was held prior to surgery. Will discuss restarting with Dr. Suarez. (2) Osteomyelitis of left foot Problem: Acute Narrative: MRI results from 06/01/18: MRI Lower Ext Non-JT W/WO LT: Nonspecific edema of the fifth proximal phalanx and the fifth metatarsal head as above. Consider ea rly changes of osteomyelitis versus reactive edema due to adjacent cellulitis/inflammatory/septic arthritis. For plan, see #1 (3) Anemia Problem: Chronic Narrative: Patient's hemoglobin has been right around 8 during his admission last week. He did have a bloody bowel movement this morning, which is new. Will consult surgery if he continues to have bloody bowel movements. Hemoglobin is 7.3 this morning, and we will recheck this afternoon. Will transfuse if less than 7, or if he is symptomatic. (4) Diabetes mellitus type 2 with complications Problem: Chronic Narrative: Patient reports giving himself 150 units of U500 at breakfast, 40-50 at lunch, and 40-50 at dinner. U500 not available at our facility. Glucose control is achieved during his last admission with 80 units Lantus twice daily, and very high sliding scale dose Humalog. He believes he was given insulin at the [facility] yesterday. Looking at his chart notes from [place], he was given U500 at 7:00 in the morning, but unsure how many units. He did have a low blood sugar of 22 last night and was given D50 and started on D5 water overnight. This was DC'd this morning as his sugars in the 200s. We will start with sliding scale insulin today and if his blood sugars are elevated, will restart that 80 units of Lantus twice daily. (5) CHF (congestive heart failure) Problem: Chronic Qualifiers: Heart failure chronicity: acute on chronic Narrative: Patient's lung sounds are distant, but no crackles audible. He does have significant 2+ bilateral lower extremity edema, unchanged from last week. Patient's PCP is outside our facility, and he did not have an echocardiogram. He has been getting 80 mg IV Lasix last week. His creatinine is slightly increased 1.9. Will administer 40 mg daily IV Lasix, and DC if creatinine continues to increase (6) Stage 3 chronic kidney disease Problem: Chronic Narrative: Patient's creatinine is around 1.7 last week it was 1.9 this morning we will need to continue to monitor his kidney function while he is getting IV Lasix and Invanz. (7) Ureterolithiasis Problem: Chronic Narrative: Patient had a ureteral stent placed approximately 5 or 6 weeks ago. This was to be removed a couple weeks ago, but his foot ulcers worsened. Will consult to urology. (8) Fever Problem: Resolved Narrative: Secondary to diabetic ulcers and osteomyelitis. Patient was discharged to [facility] on 06/08, and did not receive his prescribed antibiotic
[2018-06-10] MEDS: FUROSEMIDE 10 MG/ML VIAL IV SCH (09:20)
[2018-06-10] MEDS: amLODIPine BESYLATE 10 MG TABLET PO SCH (09:20)
[2018-06-10] MEDS ORDERED: SODIUM CHLORIDE IV PRN (09:28)
[2018-06-10 09:52] LABS: Urine Bilirubin Negative (NEGATIVE); Urine Blood 250 /ul (NEGATIVE); Urine Ketone Negative (NEGATIVE); Urine Nitrite Negative (NEGATIVE); Urine Protein 15 mg/dL (NEGATIVE); Urine Specific Gravity >=1.030 SP.GR. (1.005-1.030); Urine Urobilinogen Normal (NORMAL); Urine pH 5.5 pH (5.0-7.0)
[2018-06-10 10:04] LABS: Urine Appearance Cloudy (CLEAR); Urine Bacteria 1+; Urine Color Dark Yellow; Urine WBC 0-5 /hpf (0-5)
[2018-06-10 10:05] LABS: Urine Triple Phosphate Crystal Many - 3+ /hpf
--- NOTE | 2018-06-10 12:37 | PN ---
Progess Note - Interim Date: 06/10/18 Time: 12:33 Narrative: 06/10/18 12:33 Eliquis use - no DX for anticoagulation in his chart, and he was unsure of its indication. Spoke with his daughter, Meme, who reports he had a DVT in the last 6 months. Since he had a bloody BM/urine this morning, and surgery last night, his eliquis is held. Will not apply compression currently due to his lower extremity wounds and surgery yesterday evening. He has since had a nonbloody BM, and urinalysis was positive for blood. Ureteral stent - his family would like his stent removed during this hospitalization. Case perez [facility], and they will not cover his [facility]teral stent removal at our facility. This will have to be done after discharge. 06/10/18 12:36 06/10/18 12:37
[2018-06-10 13:20] LABS: Hematocrit 25.1 % (42.0-52.0)
[2018-06-10 13:22] LABS: Hemoglobin 7.9 gm/dL (13.5-18.0)
--- NOTE | 2018-06-10 14:33 | PN ---
Subjective - Date and Time Seen Date: 06/10/18 Time: 13:00 Subjective Narrative: Pt evaluated in bedside chair resting. Still with c/o back pain. Also c/o bilateral foot pain, but is improving. No longer with fevers, but still feels cold. Denies any N/V. Underwent partial 5th ray amputation on the left foot last evening and has done well following surgery. States that overall he feels much better today. Would like to have his stent removed by Urology here, [facility] [place] is not approving this to be done in our facility. Pt's daughter in room and states she will be contacting their [facility] advocate to discuss this as pt is not wishing to travel clear to [place] again to have this done. Denies any other concerns at this time. Objective - Review of Systems Generalized/Overall Review: Reports: Chills. Denies: Fever Cardiac: Reports: Edema Abdominal: Denies: Nausea Neurological: Reports: Numbness Skin: Reports: Other - bilateral foot ulcerations - Vitals Vitals: Last Vital Signs Temp 36.9 C 06/10/18 13:49 Pulse 74 06/10/18 13:49 Resp 18 06/10/18 13:49 BP 112/51 06/10/18 13:49 Pulse Ox 96 06/10/18 13:49 - Abnormal Lab Findings Abnormal Lab Findings: Abnormal Lab Results 06/09/18 06/09/18 06/10/18 Range/Units 15:22 15:58 05:25 RBC 3.00 L 2.73 L (4.7-6.0) M/mm3 Hgb 8.2 L 7.3 L* (13.5-18.0) gm/dL Hct 26.5 L 24.2 L (42.0-52.0) % MCH 26.7 L (27-31) pg MCHC 30.9 L 30.2 L (32-36) g/dl RDW 15.9 H 15.8 H (11.5-14.0) % Plt Count 139 L (150-450) K/mm3 Immature Gran % (Auto) 1.30 H 1.30 H (0.001-0.429) % Immature Gran # (Auto) 0.13 H 0.11 H (0.000-0.0310) K/mm3 Neutrophils % 85.7 H 82.6 H (42-75.0) % Lymphocytes % 6.3 L 8.2 L (20-51) % Neutrophils # 8.7 H 7.2 H (1.3-6.0) K/mm3 Lymphocytes # 0.64 L 0.72 L (1.5-3.5) k/mm3 Anion Gap 14.0 H (6.8-13.8) mmol/L BUN 35 H (6-23) mg/dL Creatinine 1.83 H (0.4-1.4) mg/dL Est GFR (Non-Af Amer) 39 L (60-130) mL/min Random Glucose (70-110) mg/dL AST 77 H (0-48) U/L Alkaline Phosphatase 297 H (50-170) U/L Albumin 2.5 L (3.4-5.0) gm/dl Urine Protein (NEGATIVE) mg/dL Urine Blood (NEGATIVE) /ul Ur Leukocyte Esterase (NEGATIVE) /ul Urine RBC (0-5) /hpf Triple Phos Crystals (NONE) /hpf Urine Bacteria (NONE) 06/10/18 06/10/18 06/10/18 Range/Units 05:25 09:48 13:14 RBC (4.7-6.0) M/mm3 Hgb 7.9 L* (13.5-18.0) gm/dL Hct 25.1 L (42.0-52.0) % MCH (27-31) pg MCHC (32-36) g/dl RDW (11.5-14.0) % Plt Count (150-450) K/mm3 Immature Gran % (Auto) (0.001-0.429) % Immature Gran # (Auto) (0.000-0.0310) K/mm3 Neutrophils % (42-75.0) % Lymphocytes % (20-51) % Neutrophils # (1.3-6.0) K/mm3 Lymphocytes # (1.5-3.5) k/mm3 Anion Gap (6.8-13.8) mmol/L BUN 35 H (6-23) mg/dL Creatinine 1.91 H (0.4-1.4) mg/dL Est GFR (Non-Af Amer) 37 L (60-130) mL/min Random Glucose 268 H D (70-110) mg/dL AST 70 H (0-48) U/L Alkaline Phosphatase 240 H (50-170) U/L Albumin 1.9 L (3.4-5.0) gm/dl Urine Protein 15 H (NEGATIVE) mg/dL Urine Blood 250 H (NEGATIVE) /ul Ur Leukocyte Esterase 25 H (NEGATIVE) /ul Urine RBC 10-25 H (0-5) /hpf Triple Phos Crystals Many - 3+ H (NONE) /hpf Urine Bacteria 1+ H (NONE) - Exam Constitutional: Present: Alert, Oriented x3, Cooperative Extremity: Present: lower extremity edema Skin Exam: Present: other - Dressing to left foot is CDI with moderate bloody drainage following surgery. Incision to left lateral foot following partial 5th ray amputation remains well approximated proximally and distally with sutures intact. Center remains open with packing in place. Upon removal of packing, underlying tissue is red, healthy, granular with good bleeding. Surrounding tissue with some maceration, likely secondary to bleeding. No longer with necrosis of skin. No longer with malodor. Ulceration located to the right plantar and posterior heel and measures 8 x 7.5 cm. Depth is not measurable at this time. Loss of tissue is to full thickness with exposure of subcutaneous fat layer. The wound bed is covered with a significant amount of black eschar tissue as well as black necrotic tissue. There is a small amount of pale pink tissue about the periphery of the ulceration with a small amount of granulation tissue present. Surrounding skin is slightly macerated and peeling, otherwise pink and intact. There is a large amount of serosanguineous drainage noted with a slight malodor being present. There is no exposed tendon or bone at this time. Appearance: Present: appropriate appearance Eye contact: Present: cooperative Assessment/Plan Plan Narrative: Pt has improved significantly since seen yesterday. He is POD #1 following partial 5th ray amputation left foot, progressing as expected. Incision remains approximated proximal and distal. Centrally, incision remains open, tissues remain healthy in appearance. Surgical site re-packed with 1/2" Iodoform packing gauze, dressed with Adaptic, dry gauze, ABD pad, kerlix, dustin, and MARU bandage. To be kept CDI. Will await surgical cultures to see if ABX need to be adjusted. Continue current ABX at this time. Ulceration to the right heel stable at this time. Again addressed severity of infections from his ulcerations and that surgery/amputation would help improve his chances of clearing this infection. Pt refusing any amputations of his right foot/leg. Will continue with local care. Ulcer dressed today with Aquacel Ag to help reduce maceration about the wound margins. Once maceration has resolved, will resume dressings with Santyl. Aquacel is covered with dry gauze, ABD pad, kerlix, dustin, and MARU bandage. To be kept CDI. I will continue to change dressings while he remains in house. Pt's daughter to contact [facility] advocate to address his stent situation. She will keep us informed as she gets more information. - Problems/Diagnosis (1) Osteomyelitis of right foot Problem: Acute (2) Osteomyelitis of left foot Problem: Acute
[2018-06-10] MEDS: ERTAPENEM SODIUM 1,000 MG in NORMAL SALINE 100 ML IV SCH (17:07)
--- NOTE | 2018-06-10 17:17 | PN ---
Kiana Note - Interim Date: 06/10/18 Time: 17:10 Narrative: 06/10/18 17:10 Spoke with his daughter, Nati. She is trying to have the [facility]'s decision overturned, to get the stent removed during this hospitalization. Discussed the possibility he may be able to leave early next week. She will be talking with her brothers to try to figure out discharge plans. 06/10/18 17:13
[2018-06-10] MEDS: HEPARIN SOD.,PORCINE 100 UNITS/ML IV PRN (17:30)
[2018-06-10] MEDS: INSULIN GLARGINE,HUM.REC.ANLOG 100 UNITS/ML VIAL SC SCH (22:41)
[2018-06-11] MEDS: HEPARIN SOD.,PORCINE 100 UNITS/ML IV PRN (02:06)
[2018-06-11 05:48] LABS: Hematocrit 25.2 % (42.0-52.0); Mean Cell Volume 86.9 fl (78-100); Mean Corpuscular Hemoglobin 27.2 pg (27-31); Mean Corpuscular Hgb Conc 31.3 g/dl (32-36); Mean Platelet Volume 10.8 fl (8-11.3); Neutrophil # 6.4 K/mm3 (1.3-6.0); Neutrophil % 79.3 % (42-75.0); Platelet Count 169 K/mm3 (150-450); Red Cell Distribution Width 15.7 % (11.5-14.0); White Blood Count 8.1 K/mm3 (4.0-10.5)
[2018-06-11 05:53] LABS: Albumin * 2.1 gm/dl (3.4-5.0); Anion Gap 12.4 mmol/L (6.8-13.8); BUN/Creatinine Ratio 23.3 (9.0-21.6); Bilirubin, Total 0.4 mg/dL (0.0-1.1); Ca. Corrected For Albumin 9.5 mg/dL (8.4-10.2); Calcium * 8.3 mg/dL (7.9-10.9); Carbon Dioxide 27.6 mmol/L (24-32.6); Total Protein 7.4 gm/dL (6.2-8.2)
[2018-06-11 05:55] LABS: Hemoglobin 7.9 gm/dL (13.5-18.0)
[2018-06-11] MEDS: PANTOPRAZOLE SODIUM 20 MG TABLET.DR PO SCH (07:25)
[2018-06-11] MEDS: INSULIN LISPRO 100 UNITS/ML VIAL SC SCH ×3 (07:25→17:36)
[2018-06-11] MEDS: HYDROcodone/ACETAMINOPHEN 1 EACH TABLET PO PRN ×2 (07:27→21:40)
[2018-06-11] MEDS: CARVEDILOL 25 MG TABLET PO SCH ×2 (09:51→20:54)
[2018-06-11] MEDS: INSULIN GLARGINE,HUM.REC.ANLOG 100 UNITS/ML VIAL SC SCH ×2 (09:52→20:54)
[2018-06-11] MEDS: FUROSEMIDE 10 MG/ML VIAL IV SCH (09:54)
[2018-06-11] MEDS: amLODIPine BESYLATE 10 MG TABLET PO SCH (09:55)
[2018-06-11] MEDS: COLLAGENASE CLOSTRIDIUM HIST. 30 APPL TUBE TP SCH (09:56)
--- NOTE | 2018-06-11 12:15 | PN ---
Subjective - Date and Time Seen Date: 06/11/18 Time: 11:15 Subjective Narrative: Pt evaluated in bedside chair resting. Still with c/o back pain, but states it is not as severe today. Also c/o bilateral foot/lower leg pain, but is improving. Continues without fevers, but still feels cold. Denies any N/V. Underwent partial 5th ray amputation on the left foot 2 days ago and has done well following surgery. States that overall he continues to feel better every d ay. Would like to have his stent removed by Urology here, however [facility] is not [facility] this to be done in our facility. Pt's daughter has been in contact with their [facility] advocate to discuss this as pt is not wishing to travel clear to [place] again to have this done. Awaiting their response. Denies any other concerns at this time. Objective - Review of Systems Generalized/Overall Review: Reports: Chills. Denies: Fever, Malaise Cardiac: Reports: Edema Abdominal: Denies: Nausea, Vomiting Musculoskeletal Complaints: Reports: Back Pain, Other - lower leg/foot pain Skin: Reports: Other - ulceration right foot, incision left foot - Vitals Vitals: Last Vital Signs Temp 36.8 C 06/11/18 11:40 Pulse 82 06/11/18 11:40 Resp 20 06/11/18 11:40 BP 139/62 06/11/18 11:40 Pulse Ox 93 06/11/18 11:40 - Abnormal Lab Findings Abnormal Lab Findings: Abnormal Lab Results 06/10/18 06/11/18 06/11/18 Range/Units 13:14 05:34 05:34 RBC 2.90 L (4.7-6.0) M/mm3 Hgb 7.9 L* 7.9 L* (13.5-18.0) gm/dL Hct 25.1 L 25.2 L (42.0-52.0) % MCHC 31.3 L (32-36) g/dl RDW 15.7 H (11.5-14.0) % Immature Gran % (Auto) 0.90 H (0.001-0.429) % Immature Gran # (Auto) 0.07 H (0.000-0.0310) K/mm3 Neutrophils % 79.3 H (42-75.0) % Lymphocytes % 9.7 L (20-51) % Neutrophils # 6.4 H (1.3-6.0) K/mm3 Lymphocytes # 0.78 L (1.5-3.5) k/mm3 BUN 41 H (6-23) mg/dL Creatinine 1.76 H (0.4-1.4) mg/dL Est GFR (Non-Af Amer) 41 L (60-130) mL/min BUN/Creatinine Ratio 23.3 H (9.0-21.6) Random Glucose 265 H (70-110) mg/dL AST 49 H (0-48) U/L Alkaline Phosphatase 247 H (50-170) U/L Albumin 2.1 L (3.4-5.0) gm/dl - Exam Constitutional: Present: Alert, Oriented x3, Cooperative Extremity: Present: lower extremity edema Skin Exam: Present: other - Dressing to left foot is CDI with moderate bloody drainage following surgery. Incision to left lateral foot following partial 5th ray amputation remains well approximated proximally and distally with sutures intact. Center remains open with packing in place. Upon removal of packing, underlying tissue remains red, healthy, granular with good bleeding. Surrounding tissue still with some maceration, likely secondary to bleeding as well as fluid in the extremity. Skin to dorsal aspect of incision with some dark red coloration, remains about the incision line only, does not extend into dorsal foot at this time. No longer with malodor. Ulceration located to the right plantar and posterior heel unchanged in size. Loss of tissue is to full thickness with exposure of subcutaneous fat layer. The wound bed is covered with a significant amount of black eschar tissue as well as black necrotic tissue. There is a small amount of pale pink tissue about the periphery of the ulceration with a small amounts of granulation tissue intermixed. Surrounding skin is still slightly macerated and peeling, otherwise pink and intact. There is a large amount of serosanguineous drainage noted with a slight malodor being present. There is no exposed tendon or bone at this time. Neurologic: Present: sensory deficit Appearance: Present: appropriate appearance Eye contact: Present: cooperative Assessment/Plan Plan Narrative: Pt has improved significantly since surgery. He is POD #2 following partial 5th ray amputation left foot, progressing as expected. Incision remains approximated proximal and distal. Centrally, incision remains open, tissues remain healthy in appearance. Dorsal skin around incision showing some red color change, will continue to monitor. This is not an unexpected finding considering his poor vascular status. Surgical site re-packed with 1/2" Iodoform packing gauze, dressed with Adaptic, dry gauze, ABD pad, kerlix, dustin, and MARU bandage. To be kept CDI. Surgical cultures reviewed, no TARAH available. Continue current ABX at this time. Ulceration to the right heel remains stable at this time. Again addressed severity of infections from his ulcerations and that surgery/amputation would help improve his chances of clearing this infection. Pt refusing any amputations of his right foot/leg. Will continue with local care. Ulcer dressed again today with Aquacel Ag to help further reduce maceration about the wound margins. Once maceration has resolved, will resume dressings with Santyl. Aquacel is covered with dry gauze, ABD pad, kerlix, dustin, and MARU bandage. To be kept CDI. I will continue to change dressings while he remains in house. Await information from daughter regarding possible stent removal. - Problems/Diagnosis (1) Osteomyelitis of right foot Problem: Acute Narrative: see notes above (2) Osteomyelitis of left foot Problem: Acute Narrative: see notes above
--- NOTE | 2018-06-11 12:39 | PN ---
Subjective - Date and Time Seen Date: 06/11/18 Time: 12:33 Subjective Narrative: Patient states she feels, has no complaints at this time. Objective - Review of Systems Generalized/Overall Review: Denies: Fever EENTM: Denies: Eye Pain Respiratory: Denies: Shortness of Breath Cardiac: Denies: Chest Pain Abdominal: Denies: Nausea, Vomiting, Abdominal Pain Genitourinary Symptoms: Denies: Burning Misc: All systems neg except as marked - Vitals Vitals: Last Vital Signs Temp 36.8 C 06/11/18 11:40 Pulse 82 06/11/18 11:40 Resp 20 06/11/18 11:40 BP 139/62 06/11/18 11:40 Pulse Ox 93 06/11/18 11:40 - Abnormal Lab Findings Abnormal Lab Findings: Abnormal Lab Results 06/10/18 06/11/18 06/11/18 Range/Units 13:14 05:34 05:34 RBC 2.90 L (4.7-6.0) M/mm3 Hgb 7.9 L* 7.9 L* (13.5-18.0) gm/dL Hct 25.1 L 25.2 L (42.0-52.0) % MCHC 31.3 L (32-36) g/dl RDW 15.7 H (11.5-14.0) % Immature Gran % (Auto) 0.90 H (0.001-0.429) % Immature Gran # (Auto) 0.07 H (0.000-0.0310) K/mm3 Neutrophils % 79.3 H (42-75.0) % Lymphocytes % 9.7 L (20-51) % Neutrophils # 6.4 H (1.3-6.0) K/mm3 Lymphocytes # 0.78 L (1.5-3.5) k/mm3 BUN 41 H (6-23) mg/dL Creatinine 1.76 H (0.4-1.4) mg/dL Est GFR (Non-Af Amer) 41 L (60-130) mL/min BUN/Creatinine Ratio 23.3 H (9.0-21.6) Random Glucose 265 H (70-110) mg/dL AST 49 H (0-48) U/L Alkaline Phosphatase 247 H (50-170) U/L Albumin 2.1 L (3.4-5.0) gm/dl - Exam Constitutional: Present: Alert, Cooperative, No distress, Obese ENT Exam: Present: hearing grossly normal Neck: Present: supple, trachea midline. Absent: lymphadenopathy (R), lymphadenopathy (L) Respiratory: Present: lungs clear, normal breath sounds. Absent: no accessory muscle use, crackles, rhonchi, wheezing Cardiovascular/Chest: Present: regular rate, rhythm, systolic murmur Abdomen: Present: Normal bowel sounds, soft, nontender, obese Extremity: Present: pedal edema - 2+ bilaterally Skin Exam: Present: normal color, warm/dry Eye contact: Present: cooperative Assessment/Plan Plan Narrative: 72-year-old male with osteomyelitis secondary to group C strep. - Problems/Diagnosis (1) Decubital ulcer Problem: Acute Qualifiers: Pressure injury location: buttock Pressure injury stage: stage 1 Narrative: Stable continue with wound care per nursing. 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 He has had several episodes of hypoglycemia as well. (3) Osteomyelitis of right foot Problem: Acute Narrative: He does not want any amputation of his right foot at this time. Continue with wound care per Dr. Suarez and nursing staff. (4) Osteomyelitis of left foot Problem: Acute Narrative: Wound cultures are growing group C strep. We will discontinue the Invanz and start him on meropenem.
[2018-06-11] MEDS: MEROPENEM 1 GM in NORMAL SALINE 100 ML IV SCH ×2 (14:21→20:53)
[2018-06-11] MEDS: SACCHAROMYCES BOULARDII 250 MG CAPSULE PO SCH ×2 (14:23→21:14)
[2018-06-12 05:39] LABS: Albumin * 2.2 gm/dl (3.4-5.0); Anion Gap 12.6 mmol/L (6.8-13.8); BUN/Creatinine Ratio 21.5 (9.0-21.6); Bilirubin, Total 0.5 mg/dL (0.0-1.1); Ca. Corrected For Albumin 9.5 mg/dL (8.4-10.2); Calcium * 8.4 mg/dL (7.9-10.9); Carbon Dioxide 28.4 mmol/L (24-32.6); Total Protein 7.5 gm/dL (6.2-8.2)
[2018-06-12 05:40] LABS: Hematocrit 25.4 % (42.0-52.0); Mean Cell Volume 86.7 fl (78-100); Mean Corpuscular Hgb Conc 31.1 g/dl (32-36); Mean Platelet Volume 10.6 fl (8-11.3); Neutrophil # 6.3 K/mm3 (1.3-6.0); Neutrophil % 79.1 % (42-75.0); Platelet Count 177 K/mm3 (150-450); Red Blood Count 2.93 M/mm3 (4.7-6.0); Red Cell Distribution Width 15.8 % (11.5-14.0)
[2018-06-12] MEDS: MEROPENEM 1 GM in NORMAL SALINE 100 ML IV SCH ×3 (05:44→21:12)
[2018-06-12] MEDS: PANTOPRAZOLE SODIUM 20 MG TABLET.DR PO SCH (06:55)
[2018-06-12] MEDS: INSULIN LISPRO 100 UNITS/ML VIAL SC SCH ×3 (07:04→17:29)
[2018-06-12] MEDS: CARVEDILOL 25 MG TABLET PO SCH ×2 (08:09→21:13)
[2018-06-12] MEDS: amLODIPine BESYLATE 10 MG TABLET PO SCH (08:09)
[2018-06-12] MEDS: SACCHAROMYCES BOULARDII 250 MG CAPSULE PO SCH ×2 (08:09→21:14)
[2018-06-12] MEDS: FUROSEMIDE 10 MG/ML VIAL IV SCH (08:11)
[2018-06-12] MEDS: INSULIN GLARGINE,HUM.REC.ANLOG 100 UNITS/ML VIAL SC SCH ×2 (08:15→21:23)
[2018-06-12] MEDS: HYDROcodone/ACETAMINOPHEN 1 EACH TABLET PO PRN (15:11)
--- NOTE | 2018-06-12 15:12 | PN ---
Subjective - Date and Time Seen Date: 06/12/18 Time: 13:00 Subjective Narrative: Pt evaluated in bedside chair resting. Still with c/o back pain, however relates it is improved today. Also c/o bilateral foot/lower leg pain, but also improving. Denies pain at the surgical site. Continues without fevers, but still feels cold. Denies any N/V. Underwent partial 5th ray amputation on the left foot 3 days ago and has done well following surgery. States that overall he continues to feel better every day. Denies any other concerns at this time. Objective - Review of Systems Generalized/Overall Review: Reports: Chills. Denies: Fever Cardiac: Reports: Edema Abdominal: Denies: Nausea, Vomiting Musculoskeletal Complaints: Reports: Back Pain Neurological: Reports: Numbness Skin: Reports: Other - ulceration right heel, incision left foot - Vitals Vitals: Last Vital Signs Temp 37.4 C 06/12/18 14:12 Pulse 73 06/12/18 14:12 Resp 18 06/12/18 14:12 BP 134/59 06/12/18 14:12 Pulse Ox 94 06/12/18 14:12 - Abnormal Lab Findings Abnormal Lab Findings: Abnormal Lab Results 06/12/18 06/12/18 Range/Units 05:15 05:15 RBC 2.93 L (4.7-6.0) M/mm3 Hgb 8.0 L (13.5-18.0) gm/dL Hct 25.4 L (42.0-52.0) % MCHC 31.1 L (32-36) g/dl RDW 15.8 H (11.5-14.0) % Immature Gran % (Auto) 1.10 H (0.001-0.429) % Immature Gran # (Auto) 0.09 H (0.000-0.0310) K/mm3 Neutrophils % 79.1 H (42-75.0) % Lymphocytes % 10.5 L (20-51) % Neutrophils # 6.3 H (1.3-6.0) K/mm3 Lymphocytes # 0.84 L (1.5-3.5) k/mm3 BUN 34 H (6-23) mg/dL Creatinine 1.58 H (0.4-1.4) mg/dL Est GFR (Non-Af Amer) 46 L (60-130) mL/min Random Glucose 306 H (70-110) mg/dL Alkaline Phosphatase 243 H (50-170) U/L Albumin 2.2 L (3.4-5.0) gm/dl - Exam Constitutional: Present: Alert, Oriented x3, Cooperative Extremity: Present: lower extremity edema Skin Exam: Present: other - Dressing to left foot is CDI with minimal bloody drainage following surgery. Incision to left lateral foot following partial 5th ray amputation remains well approximated proximally and distally with sutures intact. Center remains open with packing in place. Upon removal of packing, underlying tissue remains red, healthy, granular with good bleeding. Surrounding tissue still with slight maceration, likely secondary to bleeding as well as fluid in the extremity. Skin to dorsal aspect of incision with some dark red coloration, remains about the incision line only, does not extend into dorsal foot at this time - unchanged from yesterday. No longer with malodor. Ulceration located to the right plantar and posterior heel unchanged in size. Loss of tissue is to full thickness with exposure of subcutaneous fat layer. The wound bed is covered with a significant amount of black eschar tissue as well as black necrotic tissue. There is a small amount of pale pink tissue about the periphery of the ulceration with increasing amounts of granulation tissue intermixed. Surrounding skin no longer macerated, but still with some peeling, otherwise pink and intact. There is a large amount of serosanguineous drainage noted with a slight malodor being present. There is no exposed tendon or bone at this time. Neurologic: Present: sensory deficit Appearance: Present: appropriate appearance Assessment/Plan Plan Narrative: Pt continues to improve daily since surgery. He is POD #3 following partial 5th ray amputation left foot, progressing as expected. Incision remains approximated proximal and distal. Centrally, incision remains open, tissues remain healthy in appearance. Dorsal skin around incision showing some red color change, unchanged from visit yesterday, will continue to monitor. This is not an unexpected finding considering his poor vascular status. Surgical site re-packed with 1/2" Iodoform packing gauze, dressed with Adaptic, dry gauze, ABD pad, kerlix, dustin, and MARU bandage. To be kept CDI. Continue current ABX at this time. Ulceration to the right heel remains stable at this time, and does show some increasing granulation tissue formation. Again addressed severity of infections from his ulcerations and that surgery/amputation would help improve his chances of clearing this infection. Pt refusing any amputations of his right foot/leg. Will continue with local care. With resolution of maceration about the wound margins, ulcer dressed today with Santyl, dry gauze, ABD pad, kerlix, dustin, and MARU bandage. To be kept CDI. I will continue to change dressings while he remains in house. - Problems/Diagnosis (1) Osteomyelitis of right foot Problem: Acute (2) Osteomyelitis of left foot Problem: Acute
[2018-06-12] MEDS: COLLAGENASE CLOSTRIDIUM HIST. 30 APPL TUBE TP SCH (15:14)
--- NOTE | 2018-06-12 16:50 | PN ---
Subjective - Date and Time Seen Date: 06/12/18 Time: 16:43 Subjective Narrative: He feels good but would like to have a bowel movement today Objective - Review of Systems Respiratory: Denies: Shortness of Breath Cardiac: Denies: Chest Pain Abdominal: Denies: Nausea, Vomiting, Abdominal Pain Musculoskeletal Complaints: Reports: Other - Pain in both feet Misc: All systems neg except as marked - Vitals Vitals: Last Vital Signs Temp 37.4 C 06/12/18 14:12 Pulse 73 06/12/18 14:12 Resp 18 06/12/18 14:12 BP 134/59 06/12/18 14:12 Pulse Ox 94 06/12/18 14:12 - Abnormal Lab Findings Abnormal Lab Findings: Abnormal Lab Results 06/12/18 06/12/18 Range/Units 05:15 05:15 RBC 2.93 L (4.7-6.0) M/mm3 Hgb 8.0 L (13.5-18.0) gm/dL Hct 25.4 L (42.0-52.0) % MCHC 31.1 L (32-36) g/dl RDW 15.8 H (11.5-14.0) % Immature Gran % (Auto) 1.10 H (0.001-0.429) % Immature Gran # (Auto) 0.09 H (0.000-0.0310) K/mm3 Neutrophils % 79.1 H (42-75.0) % Lymphocytes % 10.5 L (20-51) % Neutrophils # 6.3 H (1.3-6.0) K/mm3 Lymphocytes # 0.84 L (1.5-3.5) k/mm3 BUN 34 H (6-23) mg/dL Creatinine 1.58 H (0.4-1.4) mg/dL Est GFR (Non-Af Amer) 46 L (60-130) mL/min Random Glucose 306 H (70-110) mg/dL Alkaline Phosphatase 243 H (50-170) U/L Albumin 2.2 L (3.4-5.0) gm/dl - Exam Constitutional: Present: Alert, Cooperative, Obtunded, Morbidly obese Neck: Present: trachea midline. Absent: lymphadenopathy (R), lymphadenopathy (L) Respiratory: Present: lungs clear. Absent: crackles, rhonchi, wheezing Cardiovascular/Chest: Present: normal peripheral pulses, regular rate, rhythm, edema - 2+ in bilateral lower extremities Abdomen: Present: Normal bowel sounds, soft, nontender Extremity: Present: pedal edema - 2+ in bilateral lower extremities, other - Both feet are wrapped in Gaurav bandages Skin Exam: Present: normal color, warm/dry Assessment/Plan Plan Narrative: 72-year-old male with osteomyelitis secondary to group C strep. 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 (3) Osteomyelitis of right foot Problem: Acute Narrative: He has declined amputation of the right foot. (4) Osteomyelitis of left foot Problem: Acute Narrative: Status post amputation of the fifth digit. Continue with Invanz while waiting for culture results.
[2018-06-13] MEDS: MEROPENEM 1 GM in NORMAL SALINE 100 ML IV SCH ×3 (04:50→21:14)
[2018-06-13 06:13] LABS: Hematocrit 25.7 % (42.0-52.0); Mean Cell Volume 86.5 fl (78-100); Mean Corpuscular Hemoglobin 26.9 pg (27-31); Mean Corpuscular Hgb Conc 31.1 g/dl (32-36); Mean Platelet Volume 10.4 fl (8-11.3); Neutrophil % 76.8 % (42-75.0); Platelet Count 186 K/mm3 (150-450); Red Blood Count 2.97 M/mm3 (4.7-6.0); Red Cell Distribution Width 15.6 % (11.5-14.0); White Blood Count 7.8 K/mm3 (4.0-10.5)
[2018-06-13 06:27] LABS: Albumin * 2.2 gm/dl (3.4-5.0); Anion Gap 12.1 mmol/L (6.8-13.8); Bilirubin, Total 0.4 mg/dL (0.0-1.1); Ca. Corrected For Albumin 9.6 mg/dL (8.4-10.2); Calcium * 8.5 mg/dL (7.9-10.9); Carbon Dioxide 30.7 mmol/L (24-32.6); Potassium 3.8 mmol/L (3.4-4.6); Total Protein 7.6 gm/dL (6.2-8.2)
[2018-06-13] MEDS: INSULIN LISPRO 100 UNITS/ML VIAL SC SCH ×3 (06:48→16:43)
[2018-06-13] MEDS: PANTOPRAZOLE SODIUM 20 MG TABLET.DR PO SCH (06:49)
[2018-06-13] MEDS: SACCHAROMYCES BOULARDII 250 MG CAPSULE PO SCH ×2 (09:24→21:15)
[2018-06-13] MEDS: CARVEDILOL 25 MG TABLET PO SCH ×2 (09:24→21:15)
[2018-06-13] MEDS: amLODIPine BESYLATE 10 MG TABLET PO SCH (09:24)
[2018-06-13] MEDS: FUROSEMIDE 10 MG/ML VIAL IV SCH (09:26)
[2018-06-13] MEDS: INSULIN GLARGINE,HUM.REC.ANLOG 100 UNITS/ML VIAL SC SCH ×2 (09:32→21:15)
--- NOTE | 2018-06-13 11:54 | PN ---
Subjective - Date and Time Seen Date: 06/13/18 Time: 11:54 Subjective Narrative: Pt evaluated in bedside chair resting. Still with c/o back pain, unchanged. Also c/o bilateral foot/lower leg pain, but continues improving. Denies pain at the surgical site. Continues without fevers, but still feels cold. Denies any N/V. Underwent partial 5th ray amputation on the left foot 4 days ago and has done well following surgery. States that overall he continues to feel better every day. Denies any other concerns at this time. Objective - Review of Systems Generalized/Overall Review: Reports: Chills. Denies: Fever, Malaise Respiratory: Denies: Shortness of Breath Cardiac: Reports: Edema Abdominal: Denies: Nausea, Vomiting Musculoskeletal Complaints: Reports: Back Pain Neurological: Reports: Numbness Skin: Reports: Other - right heel ulcer, left foot incision/ulcer - Vitals Vitals: Last Vital Signs Temp 37.1 C 06/13/18 10:47 Pulse 79 06/13/18 10:47 Resp 22 H 06/13/18 10:47 BP 139/58 06/13/18 10:47 Pulse Ox 93 06/13/18 10:47 - Abnormal Lab Findings Abnormal Lab Findings: Abnormal Lab Results 06/13/18 06/13/18 Range/Units 06:00 06:00 RBC 2.97 L (4.7-6.0) M/mm3 Hgb 8.0 L (13.5-18.0) gm/dL Hct 25.7 L (42.0-52.0) % MCH 26.9 L (27-31) pg MCHC 31.1 L (32-36) g/dl RDW 15.6 H (11.5-14.0) % Immature Gran % (Auto) 0.90 H (0.001-0.429) % Immature Gran # (Auto) 0.07 H (0.000-0.0310) K/mm3 Neutrophils % 76.8 H (42-75.0) % Lymphocytes % 11.9 L (20-51) % Lymphocytes # 0.93 L (1.5-3.5) k/mm3 BUN 31 H (6-23) mg/dL Creatinine 1.41 H (0.4-1.4) mg/dL Est GFR (Non-Af Amer) 53 L (60-130) mL/min BUN/Creatinine Ratio 22.0 H (9.0-21.6) Random Glucose 140 H D (70-110) mg/dL Alkaline Phosphatase 226 H (50-170) U/L Albumin 2.2 L (3.4-5.0) gm/dl - Exam Constitutional: Present: Alert, Oriented x3, Cooperative Extremity: Present: lower extremity edema - Dressing to left foot is CDI with minimal serosanguinous drainage following surgery. Incision to left lateral foot following partial 5th ray amputation remains well approximated proximally and distally with sutures intact. Center remains open with packing in place. Upon removal of packing, underlying tissue remains red, healthy, granular with good bleeding. Surrounding tissue still with slight maceration, likely secondary to continued drainage as well as fluid in the extremity. Skin to dorsal aspect of incision with some dark red coloration, remains about the incision line only, does not extend into dorsal foot at this time - unchanged from yesterday. No longer with malodor. Ulceration located to the right plantar and posterior heel unchanged in size. Loss of tissue is to full thickness with exposure of subcutaneous fat layer. The wound bed is covered with a significant amount of black eschar tissue as well as black necrotic tissue. There is a small amount of pale pink tissue about the periphery of the ulceration with increasing amounts of granulation tissue intermixed. Surrounding skin no longer macerated, but still with some peeling, otherwise pink and intact. There is a large amount of serosanguineous drainage noted with a slight malodor being present. There is no exposed tendon or bone at this time. Neurologic: Present: sensory deficit Appearance: Present: appropriate appearance Assessment/Plan Plan Narrative: Pt continues to improve daily since surgery. He is POD #4 following partial 5th ray amputation left foot, progressing as expected. Incision remains approximated proximal and distal. Centrally, incision remains open, tissues remain healthy in appearance. Dorsal skin around incision showing some red color change, unchanged from prior visit, will continue to monitor. This is not an unexpected finding considering his poor vascular status. Surgical site will not be packed today. Instead, dressed with Adaptic, dry gauze, ABD pad, kerlix, dustin, and MARU bandage. To be kept CDI. Continue current ABX at this time. Ulceration to the right heel remains stable at this time, and does continue to show some increasing granulation tissue formation. Again addressed severity of infections from his ulcerations and that surgery/amputation would help improve his chances of clearing this infection. Pt refusing any amputations of his right foot/leg. Will continue with local care. Ulcer dressed today with Santyl, dry gauze, ABD pad, kerlix, dustin, and MARU bandage. To be kept CDI. I will continue to change dressings while he remains in house. - Problems/Diagnosis (1) Osteomyelitis of right foot Problem: Acute (2) Osteomyelitis of left foot Problem: Acute
[2018-06-13] MEDS: COLLAGENASE CLOSTRIDIUM HIST. 30 APPL TUBE TP SCH (12:44)
[2018-06-13] MEDS: HEPARIN SOD.,PORCINE 100 UNITS/ML IV PRN (13:45)
[2018-06-13] MEDS: HYDROcodone/ACETAMINOPHEN 1 EACH TABLET PO PRN ×2 (14:18→21:15)
[2018-06-14] MEDS: MEROPENEM 1 GM in NORMAL SALINE 100 ML IV SCH ×3 (04:15→21:23)
[2018-06-14] MEDS: INSULIN LISPRO 100 UNITS/ML VIAL SC SCH ×3 (07:10→16:52)
[2018-06-14] MEDS: PANTOPRAZOLE SODIUM 20 MG TABLET.DR PO SCH (07:11)
[2018-06-14] MEDS: CARVEDILOL 25 MG TABLET PO SCH ×2 (08:57→21:24)
[2018-06-14] MEDS: amLODIPine BESYLATE 10 MG TABLET PO SCH (08:58)
[2018-06-14] MEDS: SACCHAROMYCES BOULARDII 250 MG CAPSULE PO SCH ×2 (08:58→21:24)
[2018-06-14] MEDS: INSULIN GLARGINE,HUM.REC.ANLOG 100 UNITS/ML VIAL SC SCH ×2 (08:59→21:24)
[2018-06-14] MEDS: FUROSEMIDE 10 MG/ML VIAL IV SCH (09:02)
[2018-06-14] MEDS: HEPARIN SOD.,PORCINE 100 UNITS/ML IV PRN (09:07)
[2018-06-14] MEDS: HYDROcodone/ACETAMINOPHEN 1 EACH TABLET PO PRN (13:02)
[2018-06-14] MEDS: COLLAGENASE CLOSTRIDIUM HIST. 30 APPL TUBE TP SCH (14:00)
--- NOTE | 2018-06-14 14:29 | PN ---
Subjective - Date and Time Seen Date: 06/14/18 Time: 14:21 Subjective Narrative: Pt evaluated in bedside chair resting. Still with c/o back pain, unchanged. Denies pain at the surgical site left foot. Still with some lower leg pains from swelling. Continues without fevers, but still feels cold. Denies any N/V. Underwent partial 5th ray amputation on the left foot 5 days ago and has done well following surgery. States that overall he continues to feel better every day. Relates today that he is to have his stent removed here tomorrow morning. Plans are for transfer to nursing facility, likely in [place], however is not sure which facility. Denies any other concerns at this time. Objective - Review of Systems Generalized/Overall Review: Reports: Chills. Denies: Fever Respiratory: Denies: Shortness of Breath Cardiac: Reports: Edema Abdominal: Denies: Nausea, Vomiting Musculoskeletal Complaints: Reports: Back Pain Skin: Reports: Other - right heel ulceration, left foot incision/ulceration - Vitals Vitals: Last Vital Signs Temp 36.2 C 06/14/18 12:00 Pulse 76 06/14/18 12:00 Resp 18 06/14/18 12:00 BP 131/49 06/14/18 12:00 Pulse Ox 93 06/14/18 12:00 - Exam Constitutional: Present: Alert, Oriented x3, Cooperative Extremity: Present: lower extremity edema Skin Exam: Present: other - Dressing to left foot is CDI with minimal serosanguinous drainage following surgery. Incision to left lateral foot following partial 5th ray amputation remains well approximated proximally and distally with sutures intact. Center remains open, underlying tissue remains red, healthy, granular with good bleeding. Surrounding tissue no longer with any maceration. Skin to dorsal aspect of incision still with some dark red coloration, remains about the incision line only, does not extend into dorsal foot at this time - unchanged from prior visit. Still without malodor. Ulceration located to the right plantar and posterior heel appears to be slightly smaller in size. Loss of tissue is to full thickness with exposure of subcutaneous fat layer. The wound bed is covered with a significant amount of black eschar tissue as well as black necrotic tissue. There is a small amount of pale pink tissue about the periphery of the ulceration with increasing amounts of granulation tissue intermixed. Surrounding skin still with some peeling, otherwise pink and intact. There is a large amount of serosanguineous drainage noted with a slight malodor being present. There is no exposed tendon or bone at this time. Neurologic: Present: sensory deficit Appearance: Present: appropriate appearance Eye contact: Present: cooperative Assessment/Plan Plan Narrative: Pt continues to improve daily since surgery. He is POD #5 following partial 5th ray amputation left foot, progressing as expected. Incision remains approximated proximal and distal. Centrally, incision remains open, tissues remain healthy in appearance. Dorsal skin around incision showing some red color change, unchanged from prior visit, will continue to monitor. This is not an unexpected finding considering his poor vascular status. Surgical site will not be packed again today. Instead, dressed with Adaptic, dry gauze, ABD pad, kerlix, dustin, and MARU bandage. To be kept CDI. Continue current ABX at this time. Ulceration to the right heel remains stable at this time, and does continue to show some increasing granulation tissue formation. Again addressed severity of infections from his ulcerations and that surgery/amputation would help improve his chances of clearing this infection. Pt refusing any amputations of his right foot/leg. Will continue with local care. Ulcer dressed today with Santyl, dry gauze, ABD pad, kerlix, dustin, and MARU bandage. To be kept CDI. I will continue to change dressings while he remains in house. Will again plan for weekly follow up in the wound center upon discharge. Will plan appointments accordingly when final discharge plans are made. - Problems/Diagnosis (1) Osteomyelitis of right foot Problem: Acute (2) Osteomyelitis of left foot Problem: Acute
--- NOTE | 2018-06-14 23:28 | PN ---
Subjective - Date and Time Seen Date: 06/13/18 Time: 11:00 Subjective Narrative: Denies concerns. No fever, chills, nausea, or vomiting. Pain is controlled. Objective - Vitals Vitals: Last Vital Signs Afebrile, VSS. - Exam Constitutional: Present: Alert, Oriented x3, Cooperative ENT Exam: Present: hearing grossly normal Respiratory: Present: lungs clear, normal breath sounds Cardiovascular/Chest: Present: regular rate, rhythm, no murmur Abdomen: Present: Normal bowel sounds, soft, nontender, nondistended Appearance: Present: appropriate appearance, appropriate insight Eye contact: Present: cooperative, good eye contact, normal speech Assessment/Plan Plan Narrative: Continue antibotics. No changes made today. Anticipate discharge to rehab in two days. - Problems/Diagnosis (1) Osteomyelitis of left foot Problem: Acute (2) Osteomyelitis of right foot Problem: Acute
--- NOTE | 2018-06-14 23:29 | PN ---
Subjective - Date and Time Seen Date: 06/14/18 Time: 12:45 Subjective Narrative: uRsh reports feeling well today. No concerns. No fever, chills, nausea, or vomiting. Objective - Vitals Vitals: Last Vital Signs Temp 36.9 C 06/14/18 20:43 Pulse 79 06/14/18 21:24 Resp 18 06/14/18 20:43 BP 138/59 06/14/18 21:24 Pulse Ox 92 L 06/14/18 20:43 - Exam Constitutional: Present: Alert, Oriented x3, Cooperative ENT Exam: Present: hearing grossly normal Respiratory: Present: lungs clear, normal breath sounds Cardiovascular/Chest: Present: regular rate, rhythm, no murmur Abdomen: Present: Normal bowel sounds, soft, nontender, nondistended Appearance: Present: appropriate appearance, appropriate insight Eye contact: Present: cooperative, good eye contact, normal speech Thoughts: Present: normal thought pattern, no apparent hallucination Assessment/Plan Plan Narrative: Rush is doing well today. Plan to continue antibiotics. He is anticipated to discharge to rehab tomorrow. No changes made today. - Problems/Diagnosis (1) Osteomyelitis of left foot Problem: Acute (2) Osteomyelitis of right foot Problem: Acute
[2018-06-15] MEDS: MEROPENEM 1 GM in NORMAL SALINE 100 ML IV SCH ×2 (04:56→12:02)
[2018-06-15] MEDS: HYDROcodone/ACETAMINOPHEN 1 EACH TABLET PO PRN ×2 (05:00→13:41)
[2018-06-15] MEDS: INSULIN LISPRO 100 UNITS/ML VIAL SC SCH ×2 (07:24→12:01)
[2018-06-15] MEDS: PANTOPRAZOLE SODIUM 20 MG TABLET.DR PO SCH (07:25)
[2018-06-15] MEDS: CARVEDILOL 25 MG TABLET PO SCH (08:44)
[2018-06-15] MEDS: FUROSEMIDE 10 MG/ML VIAL IV SCH (08:44)
[2018-06-15] MEDS: amLODIPine BESYLATE 10 MG TABLET PO SCH (08:44)
[2018-06-15] MEDS: SACCHAROMYCES BOULARDII 250 MG CAPSULE PO SCH (08:44)
[2018-06-15] MEDS: COLLAGENASE CLOSTRIDIUM HIST. 30 APPL TUBE TP SCH (08:45)
[2018-06-15] MEDS: INSULIN GLARGINE,HUM.REC.ANLOG 100 UNITS/ML VIAL SC SCH (08:45)
--- NOTE | 2018-06-15 09:26 | PN ---
Subjective - Date and Time Seen Date: 06/15/18 Time: 09:26 Subjective Narrative: Pt evaluated in bedside chair resting. Still with c/o back pain, unchanged. Denies pain at the surgical site left foot. Still with some lower leg pains from swelling. Continues without fevers, but still feels cold. Denies any N/V. Underwent partial 5th ray amputation on the left foot 6 days ago and continues to progress well. States that overall he continues to feel better every day. Plans are for transfer to nursing facility, possibly in [place] vs [place], however is not sure which facility. Denies any other concerns at this time. Objective - Review of Systems Generalized/Overall Review: Reports: Chills. Denies: Fever Respiratory: Denies: Shortness of Breath Cardiac: Reports: Edema Abdominal: Denies: Nausea, Vomiting Musculoskeletal Complaints: Reports: Back Pain Neurological: Reports: Numbness Skin: Reports: Other - Ulceration right heel, incision/ulcer left foot - Vitals Vitals: Last Vital Signs Temp 36.8 C 06/15/18 07:00 Pulse 77 06/15/18 08:44 Resp 18 06/15/18 07:00 BP 122/66 06/15/18 08:44 Pulse Ox 93 06/15/18 07:00 - Exam Constitutional: Present: Alert, Oriented x3, Cooperative Extremity: Present: lower extremity edema Skin Exam: Present: other - Dressing to left foot is CDI with minimal serosanguinous drainage following surgery. Incision to left lateral foot following partial 5th ray amputation remains well approximated proximally and distally with sutures intact. Center remains open, underlying tissue remains red, healthy, granular. Surrounding tissue no longer with any maceration. Skin to dorsal aspect of incision still with some dark red coloration, remains about the incision line only, does not extend into dorsal foot at this time - unchanged from prior visit. Still without malodor. Ulceration located to the right plantar and posterior heel measuring smaller today at 7.2 x 5.3 cm. Depth remains immeasurable. Loss of tissue is to full thickness with exposure of subcutaneous fat layer. The wound bed is covered with a significant amount of black eschar tissue as well as black necrotic tissue. There is a small amount of pale pink tissue about the periphery of the ulceration with increasing amounts of granulation tissue intermixed. Surrounding skin still with some peeling, otherwise pink and intact. There is a large amount of serosanguineous drainage noted with a slight malodor being present. There is no exposed tendon or bone at this time. Neurologic: Present: sensory deficit Appearance: Present: appropriate appearance Eye contact: Present: cooperative Assessment/Plan Plan Narrative: Pt continues to improve daily since surgery. He is POD #6 following partial 5th ray amputation left foot, progressing as expected. Incision remains approximated proximal and distal. Centrally, incision remains open, tissues remain healthy in appearance. Dorsal skin around incision showing some red color change, unchanged from prior visit, will continue to monitor. This is not an unexpected finding considering his poor vascular status. Surgical site will not be packed again today. Instead, dressed with Xeroform gauze, dry gauze, ABD pad, kerlix, dustin, and MARU bandage. To be kept CDI. Continue current ABX at this time. Ulceration to the right heel continues to show some increasing granulation tissue formation and has reduced in size from admission. Again addressed severity of infections from his ulcerations and that surgery/amputation would help improve his chances of clearing this infection. Pt refusing any amputations of his right foot/leg. Will continue with local care. Ulcer dressed today with Santyl, dry gauze, ABD pad, kerlix, dustin, and MARU bandage. To be kept CDI. Will plan for daily dressing changes in nursing facility. Orders for dressings given to Thuy, Case Management. I will plan to evaluate patient on my next rounds at [facility], which is where pt will be transferred. Will then plan for weekly follow up in the wound center. - Problems/Diagnosis (1) Osteomyelitis of right foot Problem: Acute (2) Osteomyelitis of left foot Problem: Acute
--- NOTE | 2018-06-15 10:20 | DS ---
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 He was brought to his wound care appointment with Dr. Suarez 06/09, and was found to have a temperature of 38.7, and his left toe had black discoloration. His son reports he does not think he was given his IV antibiotics since discharge. His invanz was due to be given in the afternoon, so he went greater than 24 hours without antibiotics. His mentation was decreased. He was immediately started on invanz, and changed to merrem for cost purposes. This is to be continued for an additional 4 weeks. PICC placed during last hospitalization, on 06/03. He and his family consented to partial fifth ray amputation of the left foot, but he still declined surgical intervention of the right heel ulcer. Ulcers - He has bilateral foot ulcers, and a sacral ulcer. Ulcer of his right foot is of the plantar surface of his right heel, and his left foot is of the lateral forefoot. MRI done 06/01/18 reports "Early changes of osteomyelitis versus reactive edema at the plantar aspect of the calcaneus. Plantar fasciitis, which could be due to infection. Shallow ulceration of the skin at the heel. No evidence for soft tissue abscess." MRI of the left shows "Nonspecific edema of the fifth proximal phalanx and the fifth metatarsal head as above. Consider early changes of osteomyelitis versus reactive edema due to adjacent cellulitis/inflammatory/septic arthritis." ESR of 99 on 06/01. Will continue santyl for his wounds. Will need aggressive CHF and diabetic management to promote wound healing. He takes very high amounts of U5 100 at home. Starting to have some blood glucose readings less than 200 and this admission. Cultures show Staphylococcus, Serratia marcescens, and group C strep, susceptible to Cipro, which was started on the night of admission. Vancomycin DC'd after discussed with ID in [place]. WBC not elevated since admission. He has no sensation of his feet. The severity of his infections have been discussed with his daily, and he persistently declines surgical intervention. His infection may not clear despite antibiotics. Given his comorbidities of uncontrolled diabetes, CHF, and CKD, his life span is likely limited to less than 6 months. Hospice consult placed for him during his first admission (two weeks ago) and his family to discuss options. Will continue Donita and mepilex dressing to his stage I sacral ulcer. DM - His home regimen is 150 units of U500 in the mornings with breakfast, and 40-50 units with lunch and dinner. Blood glucose control this admission has been difficult given his high baseline requirements. U500 not available in our facility. Better control has been achieved with 80 units of Lantus twice daily, and very high sliding scale insulin. The goal is to have his blood sugars less than 200 for optimum wound healing. Anemia - Hemoglobin remained around 8.0 this admission, which appears to be his baseline. He is asymptomatic. Blood pressure and heart rate appropriate. Ureterolithiasis - he reports having had a stent placed approximately 6 weeks ago. His family attempted to get that stent removed this admission, but [facility] would not pay for it. Will consult our [facility] urologists, to see if they will remove it. He would prefer to avoid a repeat trip to CKD - Essentially, no significant change since admission. Lasix was used judiciously for his CHF. Recommend weekly BMPs after DC. Notes per Dr. Suarez: "Pt continues to improve daily since surgery. He is POD #6 following partial 5th ray amputation left foot, progressing as expected. Incision remains approximated proximal and distal. Centrally, incision remains open, tissues remain healthy in appearance. Dorsal skin around incision showing some red color change, unchanged from prior visit, will continue to monitor. This is not an unexpected finding considering his poor vascular status. Surgical site will not be packed again today. Instead, dressed with Xeroform gauze, dry gauze, ABD pad, kerlix, dustin, and MARU bandage. To be kept CDI. Continue current ABX at this time. Ulceration to the right heel continues to show some increasing granulation tissue formation and has reduced in size from admission. Again addressed severity of infections from his ulcerations and that surgery/amputation would help improve his chances of clearing this infection. Pt refusing any amputations of his right foot/leg. Will continue with local care. Ulcer dressed today with Santyl, dry gauze, ABD pad, kerlix, dustin, and MARU bandage. To be kept CDI. Will plan for daily dressing changes in nursing facility. Orders for dressings given to Thuy, Case Management. I will plan to evaluate patient on my next rounds at [facility], which is where pt will be transferred. Will then plan for weekly follow up in the wound center." Procedures Performed: see notes below - Ulcer debridement Procedures Performed: see notes below - Left 5th ray and distal metatarsal amputation Results and Findings: Lab Pending Results 06/09/18 15:22: WBC 10.1, RBC 3.00 L, Hgb 8.2 L, Hct 26.5 L, MCV 88.3, MCH 27.3, MCHC 30.9 L, RDW 15.9 H, Plt Count 139 L, MPV 11.0, Immature Gran % (Auto) 1.30 H, Immature Gran # (Auto) 0.13 H, Neutrophils % 85.7 H, Lymphocytes % 6.3 L, Monocytes % 5.3, Eosinophils % 1.1, Basophils % 0.3, Nucleated RBC % 0.0, Neutrophils # 8.7 H, Lymphocytes # 0.64 L, Monocytes # 0.5, Eosinophils # 0.1, Absolute Basophils 0.0 06/09/18 15:58: Sodium 140, Plasma Sodium 140, Potassium 3.4, Chloride 102, Carbon Dioxide 27.4, Anion Gap 14.0 H, BUN 35 H, Creatinine 1.83 H, Est GFR (Non-Af Amer) 39 L, BUN/Creatinine Ratio 19.1, Random Glucose 76 D, Calcium 8.7, Calcium Adj for Albumin 9.6, Total Bilirubin 0.5, AST 77 H, ALT 63, Alkaline Phosphatase 297 H, Total Protein 7.7, Albumin 2.5 L 06/09/18 19:00: Fluid Glucose 88 06/09/18 19:55: Pathology Specimen Spec to path 06/10/18 05:25: WBC 8.7, RBC 2.73 L, Hgb 7.3 L*, Hct 24.2 L, MCV 88.6, MCH 26.7 L, MCHC 30.2 L, RDW 15.8 H, Plt Count 157, MPV 11.1, Immature Gran % (Auto) 1.30 H, Immature Gran # (Auto) 0.11 H, Neutrophils % 82.6 H, Lymphocytes % 8.2 L, Monocytes % 7.2, Eosinophils % 0.5, Basophils % 0.2, Nucleated RBC % 0.0, Neutrophils # 7.2 H, Lymphocytes # 0.72 L, Monocytes # 0.6, Eosinophils # 0.0, Absolute Basophils 0.0 06/10/18 05:25: Sodium 137, Plasma Sodium 140, Potassium 4.0, Chloride 102, Carbon Dioxide 27.3, Anion Gap 11.7, BUN 35 H, Creatinine 1.91 H, Est GFR (Non- Af Amer) 37 L, BUN/Creatinine Ratio 18.3, Random Glucose 268 H D, Calcium 8.0, Calcium Adj for Albumin 9.4, Total Bilirubin 0.4, AST 70 H, ALT 54, Alkaline Phosphatase 240 H, Total Protein 7.0, Albumin 1.9 L 06/10/18 09:48: Urine Color Dark yellow, Urine Appearance Cloudy, Urine pH 5.5, Ur Specific [place] >=1.030, Urine Protein 15 H, Urine Glucose (UA) Negative, Urine Ketones Negative, Urine Blood 250 H, Urine Nitrate Negative, Urine Bilirubin Negative, Prot Sulfosalicylic Acd 1+, Urine Urobilinogen Normal, Ur Leukocyte Esterase 25 H, Urine RBC 10-25 H, Urine WBC 0-5, Ur Epithelial Cells Trace, Triple Phos Crystals Many - 3+ H, Urine Bacteria 1+ H 06/10/18 13:14: Hgb 7.9 L*, Hct 25.1 L 06/11/18 05:34: Sodium 137, Plasma Sodium 140, Potassium 4.0, Chloride 101, Carbon Dioxide 27.6, Anion Gap 12.4, BUN 41 H, Creatinine 1.76 H, Est GFR (Non- Af Amer) 41 L, BUN/Creatinine Ratio 23.3 H, Random Glucose 265 H, Calcium 8.3, Calcium Adj for Albumin 9.5, Total Bilirubin 0.4, AST 49 H, ALT 49, Alkaline Phosphatase 247 H, Total Protein 7.4, Albumin 2.1 L 06/11/18 05:34: WBC 8.1, RBC 2.90 L, Hgb 7.9 L*, Hct 25.2 L, MCV 86.9, MCH 27.2, MCHC 31.3 L, RDW 15.7 H, Plt Count 169, MPV 10.8, Immature Gran % (Auto) 0.90 H, Immature Gran # (Auto) 0.07 H, Neutrophils % 79.3 H, Lymphocytes % 9.7 L, Monocytes % 7.7, Eosinophils % 2.0, Basophils % 0.4, Nucleated RBC % 0.0, Neutrophils # 6.4 H, Lymphocytes # 0.78 L, Monocytes # 0.6, Eosinophils # 0.2, Absolute Basophils 0.0 06/12/18 05:15: WBC 8.0, RBC 2.93 L, Hgb 8.0 L, Hct 25.4 L, MCV 86.7, MCH 27.0, MCHC 31.1 L, RDW 15.8 H, Plt Count 177, MPV 10.6, Immature Gran % (Auto) 1.10 H, Immature Gran # (Auto) 0.09 H, Neutrophils % 79.1 H, Lymphocytes % 10.5 L, Monocytes % 6.7, Eosinophils % 2.2, Basophils % 0.4, Nucleated RBC % 0.0, Neutrophils # 6.3 H, Lymphocytes # 0.84 L, Monocytes # 0.5, Eosinophils # 0.2, Absolute Basophils 0.0 06/12/18 05:15: Sodium 136, Plasma Sodium 139, Potassium 4.0, Chloride 99, Carbon Dioxide 28.4, Anion Gap 12.6, BUN 34 H, Creatinine 1.58 H, Est GFR (Non- Af Amer) 46 L, BUN/Creatinine Ratio 21.5, Random Glucose 306 H, Calcium 8.4, Calcium Adj for Albumin 9.5, Total Bilirubin 0.5, AST 43, ALT 46, Alkaline Phosphatase 243 H, Total Protein 7.5, Albumin 2.2 L 06/13/18 06:00: WBC 7.8, RBC 2.97 L, Hgb 8.0 L, Hct 25.7 L, MCV 86.5, MCH 26.9 L, MCHC 31.1 L, RDW 15.6 H, Plt Count 186, MPV 10.4, Immature Gran % (Auto) 0.90 H, Immature Gran # (Auto) 0.07 H, Neutrophils % 76.8 H, Lymphocytes % 11.9 L, Monocytes % 7.7, Eosinophils % 2.3, Basophils % 0.4, Nucleated RBC % 0.0, Neutrophils # 6.0, Lymphocytes # 0.93 L, Monocytes # 0.6, Eosinophils # 0.2, Absolute Basophils 0.0 06/13/18 06:00: Sodium 141, Plasma Sodium 142, Potassium 3.8, Chloride 102, Carbon Dioxide 30.7, Anion Gap 12.1, BUN 31 H, Creatinine 1.41 H, Est GFR (Non- Af Amer) 53 L, BUN/Creatinine Ratio 22.0 H, Random Glucose 140 H D, Calcium 8.5, Calcium Adj for Albumin 9.6, Total Bilirubin 0.4, AST 41, ALT 43, Alkaline Phosphatase 226 H, Total Protein 7.6, Albumin 2.2 L Discharge Location: [facility] Disposition: SNF Condition: Fair Level of Care: SNF Discharge Activity: Activity as tolerated Discharge Diet: Consistent carbs Halfway Therapy: Physicial Therapy, Occupation Therapy Referrals: Carolann Pride DO [Primary Care Provider] - Additional Patient Instructions (free text): Make appointment with Urology from [facility]. Patient has a stent that was placed at the [facility]. Does not want to go back to the [facility] to have the stent removed if [facility] is willing to remove it. Dr Suarez to see at the [facility] on Friday when she rounds. Daily dressing changes to BLE: Right: Apply Santyl, dry gauze, abd pad, roll gauze and MARU wrap. Left: Adaptic or Xeroform applied over length of incision, dry gauze, abd pad, roll gauze and MARU wrap. Complete Home Medications List: Complete Home Medication List: Omeprazole [Prilosec] 20 mg PO DAILY 04/03/16 Atorvastatin Calcium 40 mg PO QPM 03/12/18 Amlodipine Besylate 10 mg PO DAILY 05/30/18 Apixaban [Eliquis] 5 mg PO BID 05/30/18 Carvedilol [Coreg] 25 mg PO BID 05/30/18 Cholecalciferol (Vitamin D3) [Vitamin D3] 1,000 unit PO DAILY 05/30/18 Clobetasol Propionate 15 gm TOPICAL BID 05/30/18 Doxazosin Mesylate 16 mg PO HS 05/30/18 Gabapentin 100 mg PO DAILY 05/30/18 Gabapentin 300 mg PO QPM 05/30/18 Insulin Regular, Human [Humulin R U-500 Kwikpen] 60 unit SQ HS 05/30/18 Insulin Regular, Human [Humulin R U-500 Kwikpen] 100 unit SQ 0700,1200,1700 05/30/18 Acetaminophen [Tylenol] 650 mg PO Q6H PRN 06/09/18 Magnesium Hydroxide [Milk Of Magnesia] 30 ml PO DAILY PRN 06/09/18 0.9 % Sodium Chloride [Normal Saline Flush] 10 ml IV PRN PRN #1 box 06/15/18 Collagenase Clostridium Hist. [Santyl] 1 appl TP DAILY #1 tube 06/15/18 HYDROcodone/ACETAMINOPHEN [[place] 5-325] 1 ea PO Q4H PRN #14 tab 06/15/18 Heparin Sodium,Porcine/Pf [Heparin Lock Flush Syringe] 500 units IV PRN PRN #30 syr 06/15/18 Meropenem [Merrem] 1 gm IV Q8H #84 g 06/15/18 Saccharomyces Boulardii [Florastor] 250 mg PO BID #45 capsule 06/15/18 Amb Orders for Discharge: Basic Metabolic Panel Time Frame: 06/18/18, Location: Laboratory
[2018-06-15] MEDS: HEPARIN SOD.,PORCINE 100 UNITS/ML IV PRN (12:28)
[2018-06-15 16:15] VITALS: BP 143/69
[2018-06-16] MEDS ORDERED: FUROSEMIDE 80 MG TABLET PO SCH (08:00)
== END 2018-06-15 15:40 | DRG 256 ==
LOC: MS → OBSVTOIN 14:39
PROVIDERS: ADMIT Family Medicine; ATTEND Family Medicine
DX: M00.9 Pyogenic arthritis, unspecified; D64.9 Anemia, unspecified; Z86.718 Personal history of other venous thrombosis and embolism; L97.522 Non-pressure chronic ulcer of other part of left foot with fat layer exposed; M72.2 Plantar fascial fibromatosis; I96 Gangrene, not elsewhere classified; Z87.891 Personal history of nicotine dependence; I13.0 Hypertensive heart and chronic kidney disease with heart failure and stage 1 through stage 4 chronic kidney disease, or unspecified chronic kidney disease; L03.032 Cellulitis of left toe; B95.4 Other streptococcus as the cause of diseases classified elsewhere; E11.52 Type 2 diabetes mellitus with diabetic peripheral angiopathy with gangrene; N20.1 Calculus of ureter; M86.171 Other acute osteomyelitis, right ankle and foot; L98.418 Non-pressure chronic ulcer of buttock with other specified severity; Z79.4 Long term (current) use of insulin; M90.572 Osteonecrosis in diseases classified elsewhere, left ankle and foot; N18.3 Chronic kidney disease, stage 3 (moderate); I25.10 Atherosclerotic heart disease of native coronary artery without angina pectoris; Z79.01 Long term (current) use of anticoagulants; E78.5 Hyperlipidemia, unspecified; E11.22 Type 2 diabetes mellitus with diabetic chronic kidney disease; M86.172 Other acute osteomyelitis, left ankle and foot; M86.672 Other chronic osteomyelitis, left ankle and foot; B95.8 Unspecified staphylococcus as the cause of diseases classified elsewhere; E11.621 Type 2 diabetes mellitus with foot ulcer; E66.01 Morbid (severe) obesity due to excess calories; L89.301 Pressure ulcer of unspecified buttock, stage 1; E11.65 Type 2 diabetes mellitus with hyperglycemia; Z68.41 Body mass index [BMI] 40.0-44.9, adult; L97.412 Non-pressure chronic ulcer of right heel and midfoot with fat layer exposed; B96.89 Other specified bacterial agents as the cause of diseases classified elsewhere; L97.512 Non-pressure chronic ulcer of other part of right foot with fat layer exposed; I50.9 Heart failure, unspecified
CPT/HCPCS: 36415; 80053; 81001; 84075; 85014; 85018; 85025; 87040; 87070; 87075; 87086; 88305; 88311

== ENCOUNTER 2018-07-01 12:23 | Inpatient (IN) ==
[2018-07-01] MEDS ORDERED: FUROSEMIDE 10 MG/ML VIAL IV ONE (12:57)
[2018-07-01 13:20] LABS: Hematocrit 28.3 % (42.0-52.0); Hemoglobin 8.6 gm/dL (13.5-18.0); Mean Cell Volume 87.1 fl (78-100); Mean Corpuscular Hemoglobin 26.5 pg (27-31); Mean Corpuscular Hgb Conc 30.4 g/dl (32-36); Neutrophil # 2.9 K/mm3 (1.3-6.0); Neutrophil % 68.4 % (42-75.0); Platelet Count 122 K/mm3 (150-450); Red Blood Count 3.25 M/mm3 (4.7-6.0); Red Cell Distribution Width 16.7 % (11.5-14.0); White Blood Count 4.3 K/mm3 (4.0-10.5)
[2018-07-01 13:34] LABS: Troponin I 0.032 ng/mL (0.00-0.10)
[2018-07-01 13:35] LABS: Albumin * 2.2 gm/dl (3.4-5.0); Anion Gap 14.8 mmol/L (6.8-13.8); BUN/Creatinine Ratio 25.4 (9.0-21.6); Bilirubin, Total 0.6 mg/dL (0.0-1.1); Ca. Corrected For Albumin 10.2 mg/dL (8.4-10.2); Calcium * 9.1 mg/dL (7.9-10.9); Carbon Dioxide 25.8 mmol/L (24-32.6); Potassium 4.6 mmol/L (3.4-4.6); Total Protein 7.5 gm/dL (6.2-8.2)
[2018-07-01] MEDS ORDERED: AZITHROMYCIN 500 MG in DEXTROSE 5 % IN WATER 250 ML IV ONE ×2 (14:23)
--- NOTE | 2018-07-01 14:29 | ERNOTE ---
Medical Problem HPI - Narrative Date of Service: 07/01/18 - General Chief Complaint: General Assessment Time Seen by Provider: 07/01/18 12:48 Source: patient, family Exam Limitations: no limitations - Immun/Allergies/Home Medications Immunizations: IMMUNIZATION HX Immunizations Up to Date Yes History of Influenza Vaccine Yes Hx Pneumococcal Vaccination Yes Allergies/Adverse Reactions: Allergies No Known Allergies Allergy (Verified 05/30/18 17:22) Home Medications: HOME MEDICATIONS Omeprazole [Prilosec] 20 mg PO DAILY 04/03/16 [Last Taken Unknown] Atorvastatin Calcium 40 mg PO QPM 03/12/18 [Last Taken Unknown] Amlodipine Besylate 10 mg PO DAILY 05/30/18 [Last Taken Unknown] Apixaban [Eliquis] 5 mg PO BID 05/30/18 [Last Taken Unknown] Carvedilol [Coreg] 25 mg PO BID 05/30/18 [Last Taken Unknown] Cholecalciferol (Vitamin D3) [Vitamin D3] 1,000 unit PO DAILY 05/30/18 [Last Taken Unknown] Clobetasol Propionate 15 gm TOPICAL BID 05/30/18 [Last Taken Unknown] Doxazosin Mesylate 16 mg PO HS 05/30/18 [Last Taken Unknown] Gabapentin 100 mg PO DAILY 05/30/18 [Last Taken Unknown] Gabapentin 300 mg PO QPM 05/30/18 [Last Taken Unknown] Insulin Regular, Human [Humulin R U-500 Kwikpen] 60 unit SQ HS 05/30/18 [Last Taken Unknown] Insulin Regular, Human [Humulin R U-500 Kwikpen] 100 unit SQ 0700,1200,1700 05/30/18 [Last Taken Unknown] Acetaminophen [Tylenol] 650 mg PO Q6H PRN 06/09/18 [Last Taken Unknown] Magnesium Hydroxide [Milk Of Magnesia] 30 ml PO DAILY PRN 06/09/18 [Last Taken Unknown] 0.9 % Sodium Chloride [Normal Saline Flush] 10 ml IV PRN PRN #1 box 06/15/18 [Last Taken Unknown] Collagenase Clostridium Hist. [Santyl] 1 appl TOPICAL DAILY #1 tube 06/15/18 [Last Taken Unknown] Furosemide [Lasix] 80 mg PO DAILY #30 tab 06/15/18 [Last Taken Unknown] HYDROcodone/ACETAMINOPHEN [[place] 5-325] 1 ea PO Q4H PRN #14 tab 06/15/18 [Last Taken Unknown] Heparin Sodium,Porcine/Pf [Heparin Lock Flush Syringe] 500 units IV PRN PRN #30 syr 06/15/18 [Last Taken Unknown] Meropenem [Merrem] 1 gm IV Q8H #84 g 06/15/18 [Last Taken Unknown] Saccharomyces Boulardii [Florastor] 250 mg PO BID #45 cap 06/15/18 [Last Taken Unknown] - History of Present History Narrative: patient presents to the ED for increased fluid retention, SOB, cough. No fever. This has been gradually worsening over the last 3-5 days. Increased generalized swelling. Nothign seems to make this better or worse. No vomiting. Denies chest pain. Timing: constant, getting worse Severity: moderate Modifying Factors - (Improves): Present: other - nothing Modifying Factors - (Worsens): Present: other - nothing Review of Systems - Review of Systems Constitutional: Absent: fever ENT: Present: no symptoms reported Respiratory: Present: shortness of breath, cough Cardiology: Absent: chest pain Gastrointestinal/Abdominal: Present: other - abdominal distention. Absent: abdominal pain Genitourinary: Absent: dysuria Neurological: Absent: weakness All Other Systems: All systems neg except as marked Medical History (Last Reviewed 07/01/18 @ 14:26 by Larry Will MD) DVT (deep venous thrombosis) Unsure which leg; reports had Dx DVT in March 2018 Decubitus skin ulcer Diabetes History of low potassium Hyperlipidemia Hypertension Renal stone Bilateral stones Dx in April 2018; renal stent placed in right kidney [id number] Stroke Onset Date: ~03/2012 Surgical History: Surgical History (Last Reviewed 07/01/18 @ 14:26 by Larry Will MD) Hernia Hiatal hernia History of renal stent Family History: Family History (Last Reviewed 07/01/18 @ 14:26 by Larry Will MD) Mother CVA (cerebral vascular accident) Father Pneumonia Brother Hypertension Colon cancer Brother Hypertension Brother Hypertension Social History: Preferred Language Egyptian Do you have any voodoo or No cultural preference? Smoking Status Former smoker Abuse History No History of abuse Psych History No pertinent hx Alcohol Use none No Social History Section defined Physical Exam - Physical Exam General Appearance: Present: alert, no apparent distress Head Exam: Present: normal inspection, no evidence of injury Eye Exam: Normal inspection: bilateral, PERRL: bilateral Ears, Nose, Throat: Present: normal ENT inspection Neck: Present: normal inspection Respiratory: Present: no respiratory distress, no accessory muscle use, crackles Cardiovascular/Chest: Present: regular rate, rhythm Gastrointestinal/Abdominal: Present: normal bowel sounds, nontender, soft, distended Back Exam: Absent: CVA tenderness (R), CVA tenderness (L) Extremity Exam: Present: other - 3+ edema LE and some in UEs Neurological Exam: Present: alert, other - no acute unilateral motor or sensory deficits Skin Exam: Present: normal color, warm/dry Progress - Results and Orders Patient's Lab Results:: I have reviewed the patient's lab results. - Vital Signs Patient's Vital Signs:: I have reviewed the patient's vital signs. Vital Signs: Vital Signs 07/01/18 12:23 Temperature 36.7 C Pulse Rate 67 Respiratory Rate 18 Blood Pressure 126/58 O2 Sat by Pulse Oximetry 95 - EKG EKG #1 EKG: NSR EKG read: Interp. by me EKG Comments: NSR rate 67. Non-specific, no STEMI noted. - X-Ray X-Ray #1 X-Ray: chest Interpretation: Interp. by me X-ray Comments: I reviewed official radiology report - Progress/Reassessment Chief Complaint: General Assessment Progress Note-Subjective: 07/01/18 14:28 Patient given IV lasix and IV ABx. Pneumonia and fluid oiverload. Seen by Dr Pride in ED, will admit. Pt and family agreeable. Departure Clinical Impression: Pneumonia, Fluid overload - Departure Disposition: Still a patient Condition: Fair
[2018-07-01] MEDS ORDERED: MAGNESIUM HYDROXIDE 30 ML UDC PO PRN (18:22)
[2018-07-01] MEDS ORDERED: ACETAMINOPHEN 325 MG TABLET PO PRN (18:45)
--- NOTE | 2018-07-01 18:47 | HP ---
Chief Complaint - Chief Complaint Date of Service: 07/01/18 Time of Service: 18:31 Chief Complaint: edema History of Present Illness: Patient with PMHx of CHF, diabetes, foot ulcers, ureteral stones. He was brought to our facility for removal of his ureteral stent that was [facility]. He was found to have significant edema of his extremities, and was brought to the ED and subsequently admitted. He is a resident of the [facility] due to his recent foot wounds, and has been getting IV merrem since approximately 06/09. He reports a bit of a cough, but no chest pain or shortness of breath. His daughter feels like he seems more somnolent. The facility where he resides was called for more info, and they report an increase in his lasix dose yesterday. Medical History (Last Reviewed 07/01/18 @ 14:26 by Larry Will MD) DVT (deep venous thrombosis) Unsure which leg; reports had Dx DVT in March 2018 Decubitus skin ulcer Diabetes History of low potassium Hyperlipidemia Hypertension Renal stone Bilateral stones Dx in April 2018; renal stent placed in right kidney [id number] Stroke Onset Date: ~03/2012 Surgical History: Surgical History (Last Reviewed 07/01/18 @ 14:26 by Larry Will MD) Hernia Hiatal hernia History of renal stent Family History: Family History (Last Reviewed 07/01/18 @ 14:26 by Larry Will MD) Mother CVA (cerebral vascular accident) Father Pneumonia Brother Hypertension Colon cancer Brother Hypertension Brother Hypertension Social History: Patient Lives/Resources [facility] Utilized Occupation [employer] worker Preferred Language Latvian Do you have any worship or No cultural preference? Smoking Status Never smoker Have you smoked in the past 12 No months Abuse History No History of abuse Psych History No pertinent hx Alcohol Use none No Social History Section defined Review Of Systems (GEN) - Review of Systems Generalized/Overall Review: Absent: Fever Respiratory: Present: Cough. Absent: Shortness of Breath Cardiac: Present: Edema. Absent: Chest Pain Abdominal: Absent: Nausea, Constipation Genitourinary: Present: Dysuria Musculoskeletal: Present: Back Pain Skin: Present: Other - ulcer of right heel Immunizations: IMMUNIZATION HX Immunizations Up to Date Yes History of Influenza Vaccine Yes Hx Pneumococcal Vaccination Yes Allergies/Adverse Reactions: Allergies Allergy/AdvReac Type Severity Reaction Status Date / Time No Known Allergies Allergy Verified 05/30/18 17:22 Home Medications: HOME MEDICATIONS Omeprazole [Prilosec] 20 mg PO DAILY 04/03/16 [Last Taken Unknown] Atorvastatin Calcium 40 mg PO QPM 03/12/18 [Last Taken Unknown] Amlodipine Besylate 10 mg PO DAILY 05/30/18 [Last Taken Unknown] Apixaban [Eliquis] 5 mg PO BID 05/30/18 [Last Taken Unknown] Carvedilol [Coreg] 25 mg PO BID 05/30/18 [Last Taken Unknown] Cholecalciferol (Vitamin D3) [Vitamin D3] 1,000 unit PO DAILY 05/30/18 [Last Taken Unknown] Clobetasol Propionate 15 gm TOPICAL BID 05/30/18 [Last Taken Unknown] Doxazosin Mesylate 16 mg PO HS 05/30/18 [Last Taken Unknown] Gabapentin 100 mg PO DAILY 05/30/18 [Last Taken Unknown] Gabapentin 300 mg PO QPM 05/30/18 [Last Taken Unknown] Insulin Regular, Human [Humulin R U-500 Kwikpen] 60 unit SQ HS 05/30/18 [Last Taken Unknown] Insulin Regular, Human [Humulin R U-500 Kwikpen] 100 unit SQ 0700,1200,1700 05/30/18 [Last Taken Unknown] Acetaminophen [Tylenol] 650 mg PO Q6H PRN 06/09/18 [Last Taken Unknown] Magnesium Hydroxide [Milk Of Magnesia] 30 ml PO DAILY PRN 06/09/18 [Last Taken Unknown] 0.9 % Sodium Chloride [Normal Saline Flush] 10 ml IV PRN PRN #1 box 06/15/18 [Last Taken Unknown] Collagenase Clostridium Hist. [Santyl] 1 appl TOPICAL DAILY #1 tube 06/15/18 [Last Taken Unknown] Furosemide [Lasix] 80 mg PO DAILY #30 tab 06/15/18 [Last Taken Unknown] HYDROcodone/ACETAMINOPHEN [[place] 5-325] 1 ea PO Q4H PRN #14 tab 06/15/18 [Last Taken Unknown] Heparin Sodium,Porcine/Pf [Heparin Lock Flush Syringe] 500 units IV PRN PRN #30 syr 06/15/18 [Last Taken Unknown] Meropenem [Merrem] 1 gm IV Q8H #84 g 06/15/18 [Last Taken Unknown] Saccharomyces Boulardii [Florastor] 250 mg PO BID #45 cap 06/15/18 [Last Taken Unknown] Exam - Exam Vital Signs: Vital Signs - Last Taken Temp 36.9 C 07/01/18 16:02 Pulse 71 07/01/18 16:02 Resp 18 07/01/18 16:02 BP 125/55 07/01/18 16:02 Pulse Ox 91 L 07/01/18 16:02 Constitutional: Present: Alert, Oriented x3, Morbidly obese Eye Exam: bilateral eye: other - patient is blind Respiratory: Present: lungs clear, no respiratory distress Cardiovascular/Chest: Present: regular rate, rhythm, other - distant heart sounds Abdomen: Present: obese, firm Extremity: Present: lower extremity edema - 3+ pitting bilaterally, other - venous stasis changes of bilateral lower legs Diagnostic Studies: Abnormal Lab Results 07/01/18 07/01/18 Range/Units 13:14 13:14 RBC 3.25 L (4.7-6.0) M/mm3 Hgb 8.6 L (13.5-18.0) gm/dL Hct 28.3 L (42.0-52.0) % MCH 26.5 L (27-31) pg MCHC 30.4 L (32-36) g/dl RDW 16.7 H (11.5-14.0) % Plt Count 122 L (150-450) K/mm3 Immature Gran % (Auto) 0.90 H (0.001-0.429) % Immature Gran # (Auto) 0.04 H (0.000-0.0310) K/mm3 Lymphocytes % 14.3 L (20-51) % Monocytes % 9.6 H (0.0-9) % Eosinophils % 6.1 H (0.0-3.0) % Lymphocytes # 0.61 L (1.5-3.5) k/mm3 Anion Gap 14.8 H (6.8-13.8) mmol/L BUN 34 H (6-23) mg/dL Est GFR (Non-Af Amer) 56 L (60-130) mL/min BUN/Creatinine Ratio 25.4 H (9.0-21.6) Random Glucose 208 H (70-110) mg/dL B-Natriuretic Peptide 1711 H (5-350) pg/mL Albumin 2.2 L (3.4-5.0) gm/dl Laboratory Results WBC 4.3 K/mm3 (4.0-10.5) 07/01/18 13:14 RBC 3.25 M/mm3 (4.7-6.0) L 07/01/18 13:14 Hgb 8.6 gm/dL (13.5-18.0) L 07/01/18 13:14 Hct 28.3 % (42.0-52.0) L 07/01/18 13:14 MCV 87.1 fl (78-100) 07/01/18 13:14 MCH 26.5 pg (27-31) L 07/01/18 13:14 MCHC 30.4 g/dl (32-36) L 07/01/18 13:14 RDW 16.7 % (11.5-14.0) H 07/01/18 13:14 Plt Count 122 K/mm3 (150-450) L 07/01/18 13:14 MPV 11.0 fl (8-11.3) 07/01/18 13:14 Immature Gran % (Auto) 0.90 % (0.001-0.429) H 07/01/18 13:14 Immature Gran # (Auto) 0.04 K/mm3 (0.000-0.0310) H 07/01/18 13:14 Neutrophils % 68.4 % (42-75.0) 07/01/18 13:14 Lymphocytes % 14.3 % (20-51) L 07/01/18 13:14 Monocytes % 9.6 % (0.0-9) H 07/01/18 13:14 Eosinophils % 6.1 % (0.0-3.0) H 07/01/18 13:14 Basophils % 0.7 % (0.0-1.0) 07/01/18 13:14 Nucleated RBC % 0.0 k/mm3 (0-1) 07/01/18 13:14 Neutrophils # 2.9 K/mm3 (1.3-6.0) 07/01/18 13:14 Lymphocytes # 0.61 k/mm3 (1.5-3.5) L 07/01/18 13:14 Monocytes # 0.4 k/mm3 (0.0-1.0) 07/01/18 13:14 Eosinophils # 0.3 k/mm3 (0.0-0.7) 07/01/18 13:14 Absolute Basophils 0.0 k/mm3 (0.0-0.1) 07/01/18 13:14 Sodium 138 mmol/L (132-142) 07/01/18 13:14 Plasma Sodium 140 mmol/L (130-142) 07/01/18 13:14 Potassium 4.6 mmol/L (3.4-4.6) D 07/01/18 13:14 Chloride 102 mmol/L (97-106) 07/01/18 13:14 Carbon Dioxide 25.8 mmol/L (24-32.6) 07/01/18 13:14 Anion Gap 14.8 mmol/L (6.8-13.8) H 07/01/18 13:14 BUN 34 mg/dL (6-23) H 07/01/18 13:14 Creatinine 1.34 mg/dL (0.4-1.4) 07/01/18 13:14 Est GFR (Non-Af Amer) 56 mL/min (60-130) L 07/01/18 13:14 BUN/Creatinine Ratio 25.4 (9.0-21.6) H 07/01/18 13:14 Random Glucose 208 mg/dL (70-110) H 07/01/18 13:14 Calcium 9.1 mg/dL (7.9-10.9) 07/01/18 13:14 Calcium Adj for Albumin 10.2 mg/dL (8.4-10.2) 07/01/18 13:14 Total Bilirubin 0.6 mg/dL (0.0-1.1) 07/01/18 13:14 AST 38 U/L (0-48) 07/01/18 13:14 ALT 19 U/L (19-67) 07/01/18 13:14 Alkaline Phosphatase 164 U/L (50-170) 07/01/18 13:14 Troponin I 0.032 ng/mL (0.00-0.10) 07/01/18 13:14 B-Natriuretic Peptide 1711 pg/mL (5-350) H 07/01/18 13:14 Total Protein 7.5 gm/dL (6.2-8.2) 07/01/18 13:14 Albumin 2.2 gm/dl (3.4-5.0) L 07/01/18 13:14 Assessment/Plan - Assessment/Plan (1) Acute exacerbation of CHF (congestive heart failure) Assessment: He denies current discomfort. He was given 60 mg IV lasix in the ED, and will repeat in the morning. May potentially give additional dose in the early afternoon. He is not requiring oxygen, and could potentially leave tomorrow afternoon if he has sufficient response to the IV lasix. Could then resume po lasix, potentially 80 mg bid if his renal function can tolerate it. Admission CXR was questionable for pneumonia, and a dose of rocephin and azithromycin were given. However, given the merrem that he has been receiving and his clinical picture, pneumonia is less likely, and will continue merrem only. Problem: Acute (2) Osteomyelitis of right foot Assessment: Will continue 4 weeks of merrem, which will be next week, and reassess the need for continued abx. He has an ulcer of his right heel that has been follow by Dr. Suarez weekly. Will continue treatment with santyl per her notes from her visit with him yesterday. Problem: Chronic (3) Osteomyelitis of left foot Assessment: He is S/P partial 5th ray amputation last month. Continue tx per Dr. Suarez's note from yesterday. Problem: Acute (4) Ureterolithiasis Assessment: Patient was due to have his ureteral stent removed today. The [facility] placed at the [facility] in [facility], and has been causing some back pain. Will attempt to see if he is still here on 07/03, if he can be added to the urology schedule for removal that day. May need to reschedule with Dr. Franco. Problem: Chronic (5) Diabetes mellitus type 2 with complications Assessment: Has been difficult to control during previous hospitalizations. Will resume previous regimen, 80 U lantus bid with very high sliding scale insulin. He reports his glucose has been in the 200's and 300's recently. He had been prescribed U500 prior to his initial hospitalization. Problem: Chronic Qualifiers: (6) Anemia Assessment: Improved from previous admission. Problem: Chronic
[2018-07-01] MEDS ORDERED: ROSUVASTATIN CALCIUM 10 MG TABLET ONE (19:30)
[2018-07-01] MEDS: ROSUVASTATIN CALCIUM 20 MG TABLET PO SCH (19:32)
[2018-07-01] MEDS: MEROPENEM 500 MG in NORMAL SALINE 100 ML IV SCH (20:14)
[2018-07-01] MEDS: INSULIN LISPRO 100 UNITS/ML VIAL SC SCH (20:31)
[2018-07-01] MEDS: DOXAZOSIN MESYLATE 2 MG TABLET PO SCH (20:34)
[2018-07-01] MEDS: COLLAGENASE CLOSTRIDIUM HIST. 30 APPL TUBE TP SCH (20:34)
[2018-07-01] MEDS: INSULIN GLARGINE,HUM.REC.ANLOG 100 UNITS/ML VIAL SC SCH (20:34)
[2018-07-01] MEDS: APIXABAN 5 MG TABLET PO SCH (20:35)
[2018-07-01] MEDS: SACCHAROMYCES BOULARDII 250 MG CAPSULE PO SCH (20:35)
[2018-07-01] MEDS: CARVEDILOL 25 MG TABLET PO SCH (20:35)
[2018-07-01] MEDS: HYDROcodone/ACETAMINOPHEN 1 EACH TABLET PO PRN (22:06)
[2018-07-02] MEDS: MEROPENEM 500 MG in NORMAL SALINE 100 ML IV SCH ×3 (02:41→20:45)
[2018-07-02] MEDS ORDERED: FUROSEMIDE 10 MG/ML VIAL IV SCH ×2 (07:00→13:00)
[2018-07-02 07:09] LABS: BUN/Creatinine Ratio 20.6 (9.0-21.6); Estimated Creat Clear 55.5
[2018-07-02 07:10] LABS: Anion Gap 11.7 mmol/L (6.8-13.8); Calcium * 9.1 mg/dL (7.9-10.9); Carbon Dioxide 31.1 mmol/L (24-32.6); Potassium 3.8 mmol/L (3.4-4.6)
[2018-07-02 07:13] LABS: Hematocrit 27.4 % (42.0-52.0); Hemoglobin 8.7 gm/dL (13.5-18.0); Mean Cell Volume 85.1 fl (78-100); Mean Corpuscular Hgb Conc 31.8 g/dl (32-36); Mean Platelet Volume 10.5 fl (8-11.3); Neutrophil % 67.8 % (42-75.0); Platelet Count 130 K/mm3 (150-450); Red Blood Count 3.22 M/mm3 (4.7-6.0); Red Cell Distribution Width 16.5 % (11.5-14.0); White Blood Count 4.4 K/mm3 (4.0-10.5)
[2018-07-02] MEDS: INSULIN LISPRO 100 UNITS/ML VIAL SC SCH ×4 (07:22→20:54)
[2018-07-02] MEDS: PANTOPRAZOLE SODIUM 20 MG TABLET.DR PO SCH (07:34)
--- NOTE | 2018-07-02 08:15 | PN ---
Subjective - Date and Time Seen Date: 07/02/18 Time: 08:07 Subjective Narrative: Patient reports no new concerns. Denies shortness of breath. Has been eating, and started to urinate this morning. Objective - Review of Systems Generalized/Overall Review: Denies: Fever Cardiac: Reports: Edema. Denies: Chest Pain Abdominal: Denies: Nausea Genitourinary Symptoms: Denies: Burning Musculoskeletal Complaints: Reports: Back Pain - Vitals Vitals: Last Vital Signs Temp 36.6 C 07/02/18 07:52 Pulse 77 07/02/18 07:52 Resp 18 07/02/18 07:52 BP 125/60 07/02/18 07:52 Pulse Ox 92 L 07/02/18 07:52 - Abnormal Lab Findings Abnormal Lab Findings: Abnormal Lab Results 07/01/18 07/01/18 07/02/18 Range/Units 13:14 13:14 06:55 RBC 3.25 L (4.7-6.0) M/mm3 Hgb 8.6 L (13.5-18.0) gm/dL Hct 28.3 L (42.0-52.0) % MCH 26.5 L (27-31) pg MCHC 30.4 L (32-36) g/dl RDW 16.7 H (11.5-14.0) % Plt Count 122 L (150-450) K/mm3 Immature Gran % (Auto) 0.90 H (0.001-0.429) % Immature Gran # (Auto) 0.04 H (0.000-0.0310) K/mm3 Lymphocytes % 14.3 L (20-51) % Monocytes % 9.6 H (0.0-9) % Eosinophils % 6.1 H (0.0-3.0) % Lymphocytes # 0.61 L (1.5-3.5) k/mm3 Anion Gap 14.8 H (6.8-13.8) mmol/L BUN 34 H 28 H (6-23) mg/dL Est GFR (Non-Af Amer) 56 L 55 L (60-130) mL/min BUN/Creatinine Ratio 25.4 H (9.0-21.6) Random Glucose 208 H 215 H (70-110) mg/dL B-Natriuretic Peptide 1711 H (5-350) pg/mL Albumin 2.2 L (3.4-5.0) gm/dl 07/02/18 Range/Units 06:55 RBC 3.22 L (4.7-6.0) M/mm3 Hgb 8.7 L (13.5-18.0) gm/dL Hct 27.4 L (42.0-52.0) % MCH (27-31) pg MCHC 31.8 L (32-36) g/dl RDW 16.5 H (11.5-14.0) % Plt Count 130 L (150-450) K/mm3 Immature Gran % (Auto) 0.50 H (0.001-0.429) % Immature Gran # (Auto) (0.000-0.0310) K/mm3 Lymphocytes % 14.4 L (20-51) % Monocytes % 10.0 H (0.0-9) % Eosinophils % 6.4 H (0.0-3.0) % Lymphocytes # 0.63 L (1.5-3.5) k/mm3 Anion Gap (6.8-13.8) mmol/L BUN (6-23) mg/dL Est GFR (Non-Af Amer) (60-130) mL/min BUN/Creatinine Ratio (9.0-21.6) Random Glucose (70-110) mg/dL B-Natriuretic Peptide (5-350) pg/mL Albumin (3.4-5.0) gm/dl - Exam Constitutional: Present: Alert, Oriented x3, Elderly, Morbidly obese Respiratory: Present: no respiratory distress, decreased breath sounds Cardiovascular/Chest: Present: regular rate, rhythm, other - Distant heart so unds secondary to body habitus Abdomen: Present: obese, firm Extremity: Present: lower extremity edema - 3+ bilaterally to the knee, 2+ in bilateral hands Assessment/Plan - Problems/Diagnosis (1) Acute exacerbation of CHF (congestive heart failure) Problem: Acute Narrative: Patient is a resident of the [facility]. He reports increased swelling over the last few days. The nursing facility was called, and could not administer IV Lasix there. With his significant fluid overload, it is likely that he would not have absorbed p.o. Lasix, and was admitted for IV Lasix. He was given 60 mg yesterday in the ER, and has not yet had much response. Charted weights show a 5 pound decrease from yesterday. Will give 60 mg Lasix this morning and this afternoon. Potential discharge tomorrow. He is on room air, and denies shortness of breath. Will need to be aggressive about fluid overload treatment due to his bilateral lower extremity ulcers, which have been the source of 2 recent hospitalizations, and for which he is been receiving IV Merrem. (2) Osteomyelitis of right foot Problem: Chronic Narrative: Will continue 4 weeks of merrem, which will be next week, and reassess the need for continued abx. He has an ulcer of his right heel that has been follow by Dr. Suarez weekly. Will continue treatment with santyl per her notes from her visit with him 06/30. (3) Osteomyelitis of left foot Problem: Acute Narrative: He is S/P partial 5th ray amputation last month. Continue tx per Dr. Suarez's note from 06/30. (4) Ureterolithiasis Problem: Chronic Narrative: Insurance will not allow stent removal to be paid for during this admission, unfortunately. We will attempt to reschedule with Dr. Tay as an outpatient after his discharge. He had a stent placed by the [facility] back in April for 4 mm stone. He has been having some lower back pain, which may have been from the stent. (5) Diabetes mellitus type 2 with complications Problem: Chronic Qualifiers: Narrative: Blood sugar thus far has been greater than 200. We will continue 80 mg twice daily Lantus, and a very high dose sliding scale insulin, as this regimen has worked for him during previous admissions. (6) Anemia Problem: Chronic Narrative: Essentially no change in his hemoglobin from yesterday.
[2018-07-02] MEDS: SACCHAROMYCES BOULARDII 250 MG CAPSULE PO SCH ×2 (08:43→20:42)
[2018-07-02] MEDS: APIXABAN 5 MG TABLET PO SCH ×2 (08:43→20:42)
[2018-07-02] MEDS: CARVEDILOL 25 MG TABLET PO SCH ×2 (08:44→20:42)
[2018-07-02] MEDS: amLODIPine BESYLATE 10 MG TABLET PO SCH (08:44)
[2018-07-02] MEDS: INSULIN GLARGINE,HUM.REC.ANLOG 100 UNITS/ML VIAL SC SCH ×2 (08:47→20:53)
[2018-07-02] MEDS: COLLAGENASE CLOSTRIDIUM HIST. 30 APPL TUBE TP SCH (09:08)
[2018-07-02] MEDS: ROSUVASTATIN CALCIUM 20 MG TABLET PO SCH (17:34)
[2018-07-02] MEDS: GABAPENTIN 100 MG CAPSULE PO SCH (17:34)
[2018-07-02] MEDS: DOXAZOSIN MESYLATE 2 MG TABLET PO SCH (20:42)
[2018-07-02] MEDS ORDERED: HEPARIN SOD.,PORCINE 100 UNITS/ML ONE (20:52)
[2018-07-02] MEDS: HEPARIN SOD.,PORCINE 100 UNITS/ML IV PRN (21:38)
[2018-07-03] MEDS: MEROPENEM 500 MG in NORMAL SALINE 100 ML IV SCH ×3 (02:35→17:40)
[2018-07-03] MEDS: HEPARIN SOD.,PORCINE 100 UNITS/ML IV PRN (03:18)
[2018-07-03] MEDS: INSULIN LISPRO 100 UNITS/ML VIAL SC SCH ×4 (07:41→22:04)
[2018-07-03] MEDS: PANTOPRAZOLE SODIUM 20 MG TABLET.DR PO SCH (07:43)
--- NOTE | 2018-07-03 08:20 | PN ---
Subjective - Date and Time Seen Date: 07/03/18 Time: 08:20 Subjective Narrative: Patient continues to have significant swelling, up to his abdomen. Denies shortness of breath. Objective - Review of Systems Generalized/Overall Review: Denies: Fever Respiratory: Denies: Shortness of Breath Cardiac: Reports: Edema. Denies: Chest Pain Abdominal: Denies: Nausea, Constipation Musculoskeletal Complaints: Reports: Back Pain - Vitals Vitals: Last Vital Signs Temp 36.9 C 07/03/18 07:25 Pulse 75 07/03/18 07:25 Resp 16 07/03/18 07:25 BP 124/62 07/03/18 07:25 Pulse Ox 93 07/03/18 07:25 - Exam Constitutional: Present: Alert, No distress, Morbidly obese Respiratory: Present: no respiratory distress, other - diminished bases Cardiovascular/Chest: Present: regular rate, rhythm Abdomen: Present: obese Extremity: Present: lower extremity edema - 2+ bilaterally, to the abdomen, other - bilateral upper extremity edema, right greater than left. No significant change of right hand swelling from yesterday Assessment/Plan - Problems/Diagnosis (1) Acute exacerbation of CHF (congestive heart failure) Problem: Acute Narrative: He has had limited response to 60 mg IV Lasix twice daily. His recorded weight is 2 pounds greater than yesterday. He has had several incontinent voids, so unable to record output. Increase IV lasix dose to 80 mg bid. He may respond better to bumex, and will 1 mg Bumex in addition to 25 mg spironolactone. His albumin was only 2.2, which is likely contributing to his significant edema. He denies respiratory complaints, and is oxygenating on room air, but has pitting edema to his abdomen. The edema will interfere with healing of his foot ulcers. Potential DC back to [facility] tomorrow if his edema improves. He does have approximately 2+ edema at baseline of his lower extremities, but this may improve with a transition to bumex and spironolactone. (2) Osteomyelitis of right foot Problem: Chronic Narrative: Will continue 4 weeks of merrem, which will be next week, and reassess the need for continued abx. He has an ulcer of his right heel that has been follow by Dr. Suarez weekly. Will continue treatment with santyl per her notes from her visit with him 2/19. (3) Osteomyelitis of left foot Problem: Acute Narrative: He is S/P partial 5th ray amputation last month. Continue tx per Dr. Suarez's note from 06/30. (4) Ureterolithiasis Problem: Chronic Narrative: He presented to the hospital on the day of admission for removal of ureteral stent. However given his fluid overload, he was instead admitted for CHF exacerbation. Unable to remove the stent during this hospitalization due to insurance purposes. We will attempt to reschedule him with Dr. Franco next week. [facility]. (5) Diabetes mellitus type 2 with complications Problem: Chronic Qualifiers: Narrative: His glucose control is improving. Glucose readings in the 200s and 300s yesterday, and have been in the 100s today thus far. Continue 80 mg twice daily Lantus and very high dose sliding scale insulin. He received 75 U humalog yesterday. (6) Anemia Problem: Chronic Narrative: Hemoglobin has been around 8.5 this admission, which is improved from last admission. (7) History of DVT (deep vein thrombosis) Problem: Chronic Narrative: He has had a DVT in the last 6 months, and will continue previously prescribed eliquis.
[2018-07-03 08:58] LABS: Hematocrit 26.6 % (42.0-52.0); Hemoglobin 8.3 gm/dL (13.5-18.0); Mean Cell Volume 86.4 fl (78-100); Mean Corpuscular Hemoglobin 26.9 pg (27-31); Mean Corpuscular Hgb Conc 31.2 g/dl (32-36); Mean Platelet Volume 10.2 fl (8-11.3); Neutrophil # 2.7 K/mm3 (1.3-6.0); Neutrophil % 65.2 % (42-75.0); Platelet Count 115 K/mm3 (150-450); Red Blood Count 3.08 M/mm3 (4.7-6.0); Red Cell Distribution Width 16.5 % (11.5-14.0); White Blood Count 4.2 K/mm3 (4.0-10.5)
[2018-07-03] MEDS ORDERED: FUROSEMIDE 80 MG TABLET PO SCH (09:00)
[2018-07-03 09:09] LABS: Anion Gap 9.6 mmol/L (6.8-13.8); BUN/Creatinine Ratio 26.1 (9.0-21.6); Calcium * 9.3 mg/dL (7.9-10.9); Carbon Dioxide 32.3 mmol/L (24-32.6); Estimated Creat Clear 65.6; Potassium 3.9 mmol/L (3.4-4.6)
[2018-07-03] MEDS: FUROSEMIDE 10 MG/ML VIAL IV SCH ×2 (09:55→15:30)
[2018-07-03] MEDS: BUMETANIDE 1 MG TABLET PO SCH (09:56)
[2018-07-03] MEDS: CARVEDILOL 25 MG TABLET PO SCH ×2 (09:56→21:52)
[2018-07-03] MEDS: amLODIPine BESYLATE 10 MG TABLET PO SCH (09:57)
[2018-07-03] MEDS: APIXABAN 5 MG TABLET PO SCH ×2 (09:57→21:55)
[2018-07-03] MEDS: INSULIN GLARGINE,HUM.REC.ANLOG 100 UNITS/ML VIAL SC SCH ×2 (09:57→22:02)
[2018-07-03] MEDS: SACCHAROMYCES BOULARDII 250 MG CAPSULE PO SCH ×2 (09:57→21:55)
[2018-07-03] MEDS: COLLAGENASE CLOSTRIDIUM HIST. 30 APPL TUBE TP SCH (13:28)
[2018-07-03] MEDS: HYDROcodone/ACETAMINOPHEN 1 EACH TABLET PO PRN ×2 (13:36→21:49)
[2018-07-03] MEDS: SPIRONOLACTONE 25 MG TABLET PO SCH (13:37)
--- NOTE | 2018-07-03 14:59 | PN ---
Kiana Note - Interim Date: 07/03/18 Time: 14:24 Narrative: 07/03/18 14:24 Patient's care will be transitioned to another physician this evening. The following is a summary of this hospital stay: Mr. Dominguez presented for surgery for removal of his ureteral stent on Friday, 07/01. He was found to have significant upper and lower extremity edema, and was brought to the ED. I assessed him in the ED, discussed with the ER doc, and he was admitted for IV Lasix for CHF exacerbation. [facility], where he is a current resident, was also called for summary of recent events. They reported increasing his p.o. dose of Lasix the day prior to admission. He was oxygenating well on room air, and denied dyspnea. He was originally given 60 mg of Lasix twice daily, but did not have sufficient response. This was increased to 80 mg twice daily the following day. Due to his significant edema, which was 2+ pitting to his abdomen, 1 mg Bumex and 25 mg spironolactone were added. If he has sufficient response tomorrow, he can be discharged with 1 mg Bumex, 25 mg spironolactone, and 80 mg Lasix daily. He had one episode where telemetry showed a heart rate of 31. EKG was done, and his heart rate was 79. He was asymptomatic at the time. He continues to have a bilateral lower extremity ulcers, left fifth metatarsal and right heel. He is S/P left 5th ray partial amputation. Dressings were changed, and he was continued on Merrem. Reassess need for continued antibiotics next week, around 07/09, as that will be 4 weeks from surgery. Diabetes control was sufficient with 80 mg twice daily Lantus and a very high dose sliding scale insulin. His stent removal is rescheduled with Dr. Franco on July 15.
[2018-07-03] MEDS: GABAPENTIN 100 MG CAPSULE PO SCH (17:37)
[2018-07-03] MEDS: ROSUVASTATIN CALCIUM 20 MG TABLET PO SCH (17:37)
[2018-07-03] MEDS: DOXAZOSIN MESYLATE 2 MG TABLET PO SCH (21:51)
[2018-07-04] MEDS: MEROPENEM 500 MG in NORMAL SALINE 100 ML IV SCH ×3 (03:13→18:50)
[2018-07-04] MEDS: HEPARIN SOD.,PORCINE 100 UNITS/ML IV PRN ×2 (03:56→11:38)
[2018-07-04] MEDS: PANTOPRAZOLE SODIUM 20 MG TABLET.DR PO SCH (07:14)
[2018-07-04] MEDS: INSULIN LISPRO 100 UNITS/ML VIAL SC SCH ×4 (07:17→21:11)
[2018-07-04] MEDS: BUMETANIDE 1 MG TABLET PO SCH (09:40)
[2018-07-04] MEDS: CARVEDILOL 25 MG TABLET PO SCH ×2 (09:41→21:10)
[2018-07-04] MEDS: SACCHAROMYCES BOULARDII 250 MG CAPSULE PO SCH ×2 (09:42→21:09)
[2018-07-04] MEDS: amLODIPine BESYLATE 10 MG TABLET PO SCH (09:42)
[2018-07-04] MEDS: APIXABAN 5 MG TABLET PO SCH ×2 (09:42→21:10)
[2018-07-04] MEDS ORDERED: TORSEMIDE 20 MG TABLET PO SCH ×2 (09:45→21:00)
[2018-07-04] MEDS: HYDROcodone/ACETAMINOPHEN 1 EACH TABLET PO PRN ×2 (09:45→21:09)
[2018-07-04] MEDS: SPIRONOLACTONE 25 MG TABLET PO SCH (09:45)
[2018-07-04] MEDS: INSULIN GLARGINE,HUM.REC.ANLOG 100 UNITS/ML VIAL SC SCH ×2 (09:46→21:12)
[2018-07-04] MEDS ORDERED: METOLAZONE 5 MG TABLET PO ONE (12:30)
[2018-07-04] MEDS: COLLAGENASE CLOSTRIDIUM HIST. 30 APPL TUBE TP SCH (15:11)
--- NOTE | 2018-07-04 16:44 | PN ---
Subjective - Date and Time Seen Date: 07/04/18 Time: 16:44 Subjective Narrative: I still have a lot of swelling. Objective - Review of Systems Generalized/Overall Review: Denies: Chills, Fever Respiratory: Denies: Shortness of Breath Cardiac: Reports: Edema Misc: All systems neg except as marked - Vitals Vitals: Last Vital Signs Temp 37.0 C 07/04/18 15:48 Pulse 72 07/04/18 15:48 Resp 18 07/04/18 15:48 BP 132/57 07/04/18 15:48 Pulse Ox 91 L 07/04/18 15:48 - Exam Constitutional: Present: Alert, Cooperative, Well developed, Well nourished, No distress ENT Exam: Present: hearing grossly normal Neck: Present: non-tender, supple. Absent: lymphadenopathy (R), lymphadenopathy (L) Respiratory: Present: lungs clear. Absent: crackles, rhonchi, wheezing Cardiovascular/Chest: Present: regular rate, rhythm, systolic murmur, edema. Absent: no edema - 2+ pitting edema from his feet up to the supraumbilical region Abdomen: Present: Normal bowel sounds, nontender, rigidity /Rectal: Present: Other - Scrotal and penile edema and erythema Extremity: Present: lower extremity edema - 2+ bilaterally Skin Exam: Present: warm/dry Neurologic: Present: normal mood/affect Appearance: Present: appropriate appearance Eye contact: Present: cooperative Thoughts: Present: normal mood /affect Assessment/Plan Plan Narrative: 72-year-old male with past medical history of diabetes presenting with worsening edema. He has been admitted for IV diuresis. Lasix has been increased to 80 mg daily with minimal effect on the edema. I will transition him today to torsemide 40 mg daily with metolazone 5 mg x1 daily. Continue with daily I's and O's. - Problems/Diagnosis (1) Fluid overload Problem: Acute Narrative: He has had a poor response to IV Lasix regarding reducing his fluid burden. I will try transitioning him to torsemide 40 mg daily along with metolazone 5 mg daily. Continue with I's and O's (2) Acute exacerbation of CHF (congestive heart failure) Problem: Acute Narrative: Continue diuretic as seen under fluid overload. (3) Diabetes Problem: Acute Narrative: Continue current medications (4) Osteomyelitis of left foot Problem: Acute Narrative: Continue current medications. (5) Osteomyelitis of right foot Problem: Chronic Narrative: Continue current medications. (6) Stage 3 chronic kidney disease Problem: Chronic
[2018-07-04] MEDS: ROSUVASTATIN CALCIUM 20 MG TABLET PO SCH (16:56)
[2018-07-04] MEDS: GABAPENTIN 300 MG CAPSULE PO SCH (16:57)
[2018-07-04] MEDS: DOXAZOSIN MESYLATE 2 MG TABLET PO SCH (21:10)
[2018-07-05] MEDS: MEROPENEM 500 MG in NORMAL SALINE 100 ML IV SCH ×3 (02:33→17:57)
[2018-07-05] MEDS: HYDROcodone/ACETAMINOPHEN 1 EACH TABLET PO PRN ×4 (02:37→21:07)
[2018-07-05] MEDS: HEPARIN SOD.,PORCINE 100 UNITS/ML IV PRN ×2 (03:11→11:32)
[2018-07-05 06:29] LABS: Hematocrit 27.2 % (42.0-52.0); Hemoglobin 8.4 gm/dL (13.5-18.0); Mean Cell Volume 85.3 fl (78-100); Mean Corpuscular Hemoglobin 26.3 pg (27-31); Mean Corpuscular Hgb Conc 30.9 g/dl (32-36); Mean Platelet Volume 10.7 fl (8-11.3); Neutrophil # 2.5 K/mm3 (1.3-6.0); Neutrophil % 62.4 % (42-75.0); Platelet Count 123 K/mm3 (150-450); Red Blood Count 3.19 M/mm3 (4.7-6.0); Red Cell Distribution Width 16.4 % (11.5-14.0)
[2018-07-05 06:43] LABS: Albumin * 2.3 gm/dl (3.4-5.0); Anion Gap 11.8 mmol/L (6.8-13.8); BUN/Creatinine Ratio 25.8 (9.0-21.6); Bilirubin, Total 0.5 mg/dL (0.0-1.1); Ca. Corrected For Albumin 10.4 mg/dL (8.4-10.2); Calcium * 9.4 mg/dL (7.9-10.9); Potassium 3.8 mmol/L (3.4-4.6); Total Protein 7.2 gm/dL (6.2-8.2)
[2018-07-05] MEDS: INSULIN LISPRO 100 UNITS/ML VIAL SC SCH ×4 (07:16→21:12)
[2018-07-05] MEDS: PANTOPRAZOLE SODIUM 20 MG TABLET.DR PO SCH (07:16)
[2018-07-05] MEDS: amLODIPine BESYLATE 10 MG TABLET PO SCH (08:48)
[2018-07-05] MEDS: SACCHAROMYCES BOULARDII 250 MG CAPSULE PO SCH ×2 (08:48→21:10)
[2018-07-05] MEDS: APIXABAN 5 MG TABLET PO SCH ×2 (08:48→21:12)
[2018-07-05] MEDS: CARVEDILOL 25 MG TABLET PO SCH ×2 (08:49→21:12)
[2018-07-05] MEDS: SPIRONOLACTONE 25 MG TABLET PO SCH (08:49)
[2018-07-05] MEDS: INSULIN GLARGINE,HUM.REC.ANLOG 100 UNITS/ML VIAL SC SCH ×2 (08:57→21:09)
[2018-07-05] MEDS ORDERED: TORSEMIDE 20 MG TABLET PO SCH (09:00)
[2018-07-05] MEDS ORDERED: METOLAZONE 5 MG TABLET PO SCH (11:00)
--- NOTE | 2018-07-05 12:04 | PN ---
Subjective - Date and Time Seen Date: 07/05/18 Time: 11:48 Subjective Narrative: He feels fine, no complaints except for his chronic low back pain and chronic pain in his feet. Objective - Review of Systems Respiratory: Denies: Shortness of Breath Cardiac: Reports: Edema. Denies: Chest Pain Abdominal: Denies: Abdominal Pain Genitourinary Symptoms: Reports: Frequency Misc: All systems neg except as marked - Vitals Vitals: Last Vital Signs Temp 36.2 C 07/05/18 10:00 Pulse 74 07/05/18 10:00 Resp 18 07/05/18 10:00 BP 127/59 07/05/18 10:00 Pulse Ox 94 07/05/18 10:00 - Abnormal Lab Findings Abnormal Lab Findings: Abnormal Lab Results 07/05/18 07/05/18 07/05/18 Range/Units 05:40 05:40 07:24 RBC 3.19 L (4.7-6.0) M/mm3 Hgb 8.4 L (13.5-18.0) gm/dL Hct 27.2 L (42.0-52.0) % MCH 26.3 L (27-31) pg MCHC 30.9 L (32-36) g/dl RDW 16.4 H (11.5-14.0) % Plt Count 123 L (150-450) K/mm3 Immature Gran % (Auto) 0.50 H (0.001-0.429) % Lymphocytes % 18.5 L (20-51) % Monocytes % 11.5 H (0.0-9) % Eosinophils % 6.3 H (0.0-3.0) % Lymphocytes # 0.74 L (1.5-3.5) k/mm3 Sodium 143 H (132-142) mmol/L Plasma Sodium 143 H (130-142) mmol/L Carbon Dioxide 33.0 H (24-32.6) mmol/L BUN 31 H (6-23) mg/dL BUN/Creatinine Ratio 25.8 H (9.0-21.6) Random Glucose 52 L (70-110) mg/dL Calcium Adj for Albumin 10.4 H (8.4-10.2) mg/dL ALT 17 L (19-67) U/L Albumin 2.3 L (3.4-5.0) gm/dl - Exam Constitutional: Present: Alert, Cooperative, Well developed, Well nourished, Morbidly obese ENT Exam: Present: hearing grossly normal Neck: Present: non-tender, supple. Absent: lymphadenopathy (R), lymphadenopathy (L) Respiratory: Present: lungs clear. Absent: crackles, rhonchi, wheezing Cardiovascular/Chest: Present: normal peripheral pulses, regular rate, rhythm, systolic murmur, edema - 2+ in both lower extremities up to the periumbilical region. Swelling noted in both hands, 1+ Abdomen: Present: Normal bowel sounds, nontender, firm - secondary to edema /Rectal: Absent: External genitalia normal - Swelling scrotum and penis with erythema. Extremity: Present: lower extremity edema - 2+ bilaterally Skin Exam: Present: normal color, warm/dry Neurologic: Present: normal mood/affect Appearance: Present: appropriate insight Eye contact: Present: cooperative Thoughts: Present: normal mood /affect Assessment/Plan Plan Narrative: 72-year-old male past medical history of diabetes presenting with worsening edema. He appears to have diuresed well with torsemide and metolazone. He has some mild improvement in the swelling. Continue with daily I's and O's. - Problems/Diagnosis (1) Fluid overload Problem: Acute Narrative: Slowly improving with torsemide 40 mg daily and metolazone 5 mg daily. Continue with diuresis and daily I's and O's. 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 Continue current medications. (3) Osteomyelitis of left foot Problem: Acute Narrative: Status post partial fifth ray amputation. Continue follow-up with Dr. Suarez and wound care. (4) Osteomyelitis of right foot Problem: Chronic Narrative: Continue with meropenem and follow-up with Dr. Suarez. Continue with wound care. (5) Stage 3 chronic kidney disease Problem: Chronic Narrative: Stable (6) DVT (deep venous thrombosis) Problem: Acute Narrative: Continue with Eliquis.
[2018-07-05] MEDS: COLLAGENASE CLOSTRIDIUM HIST. 30 APPL TUBE TP SCH (14:30)
[2018-07-05] MEDS: ROSUVASTATIN CALCIUM 20 MG TABLET PO SCH (16:48)
[2018-07-05] MEDS: GABAPENTIN 300 MG CAPSULE PO SCH (16:49)
[2018-07-05] MEDS: DOXAZOSIN MESYLATE 2 MG TABLET PO SCH (21:10)
[2018-07-06] MEDS: MEROPENEM 500 MG in NORMAL SALINE 100 ML IV SCH ×3 (01:51→17:39)
[2018-07-06] MEDS: HEPARIN SOD.,PORCINE 100 UNITS/ML IV PRN ×2 (02:32→17:16)
[2018-07-06] MEDS: HYDROcodone/ACETAMINOPHEN 1 EACH TABLET PO PRN ×2 (03:34→08:37)
[2018-07-06 06:19] LABS: Hematocrit 26.2 % (42.0-52.0); Hemoglobin 8.1 gm/dL (13.5-18.0); Mean Cell Volume 85.9 fl (78-100); Mean Corpuscular Hemoglobin 26.6 pg (27-31); Mean Corpuscular Hgb Conc 30.9 g/dl (32-36); Neutrophil # 2.7 K/mm3 (1.3-6.0); Neutrophil % 63.5 % (42-75.0); Platelet Count 126 K/mm3 (150-450); Red Blood Count 3.05 M/mm3 (4.7-6.0); Red Cell Distribution Width 16.2 % (11.5-14.0); White Blood Count 4.2 K/mm3 (4.0-10.5)
[2018-07-06 06:31] LABS: Albumin * 2.3 gm/dl (3.4-5.0); Anion Gap 10.3 mmol/L (6.8-13.8); BUN/Creatinine Ratio 27.6 (9.0-21.6); Bilirubin, Total 0.4 mg/dL (0.0-1.1); Ca. Corrected For Albumin 10.3 mg/dL (8.4-10.2); Calcium * 9.3 mg/dL (7.9-10.9); Carbon Dioxide 32.7 mmol/L (24-32.6); Total Protein 7.2 gm/dL (6.2-8.2)
[2018-07-06] MEDS: INSULIN LISPRO 100 UNITS/ML VIAL SC SCH ×4 (06:54→21:24)
[2018-07-06] MEDS: PANTOPRAZOLE SODIUM 20 MG TABLET.DR PO SCH (07:17)
[2018-07-06] MEDS ORDERED: DEXTROSE 50%-WATER 50 ML SYRG IV ONE (07:21)
[2018-07-06] MEDS: SPIRONOLACTONE 25 MG TABLET PO SCH (08:16)
[2018-07-06] MEDS: CARVEDILOL 25 MG TABLET PO SCH ×2 (08:16→21:18)
[2018-07-06] MEDS: APIXABAN 5 MG TABLET PO SCH ×2 (08:17→21:19)
[2018-07-06] MEDS: SACCHAROMYCES BOULARDII 250 MG CAPSULE PO SCH ×2 (08:17→21:19)
[2018-07-06] MEDS: amLODIPine BESYLATE 10 MG TABLET PO SCH (08:17)
[2018-07-06] MEDS: INSULIN GLARGINE,HUM.REC.ANLOG 100 UNITS/ML VIAL SC SCH ×2 (08:22→21:22)
[2018-07-06] MEDS: TORSEMIDE 20 MG TABLET PO SCH (08:28)
[2018-07-06] MEDS: COLLAGENASE CLOSTRIDIUM HIST. 30 APPL TUBE TP SCH (09:32)
[2018-07-06] MEDS: METOLAZONE 5 MG TABLET PO SCH (12:03)
--- NOTE | 2018-07-06 13:19 | PN ---
Subjective - Date and Time Seen Date: 07/06/18 Time: 08:00 Subjective Narrative: Patient reports continued scrotal swelling. He still has lower back and lower extremity pain. He said at times the narcotic is helpful, other times not. No breathing difficulty. Objective - Review of Systems Generalized/Overall Review: Denies: Fever Respiratory: Denies: Shortness of Breath Cardiac: Reports: Edema. Denies: Chest Pain Abdominal: Denies: Nausea Genitourinary Symptoms: Denies: Burning Musculoskeletal Complaints: Reports: Back Pain - Vitals Vitals: Last Vital Signs Temp 36.4 C 07/06/18 10:00 Pulse 71 07/06/18 10:00 Resp 18 07/06/18 10:00 BP 121/53 07/06/18 10:00 Pulse Ox 93 07/06/18 10:00 - Abnormal Lab Findings Abnormal Lab Findings: Abnormal Lab Results 07/06/18 07/06/18 Range/Units 05:45 05:45 RBC 3.05 L (4.7-6.0) M/mm3 Hgb 8.1 L (13.5-18.0) gm/dL Hct 26.2 L (42.0-52.0) % MCH 26.6 L (27-31) pg MCHC 30.9 L (32-36) g/dl RDW 16.2 H (11.5-14.0) % Plt Count 126 L (150-450) K/mm3 Immature Gran % (Auto) 0.70 H (0.001-0.429) % Lymphocytes % 16.5 L (20-51) % Monocytes % 11.3 H (0.0-9) % Eosinophils % 7.3 H (0.0-3.0) % Lymphocytes # 0.70 L (1.5-3.5) k/mm3 Carbon Dioxide 32.7 H (24-32.6) mmol/L BUN 34 H (6-23) mg/dL BUN/Creatinine Ratio 27.6 H (9.0-21.6) Random Glucose 53 L (70-110) mg/dL Calcium Adj for Albumin 10.3 H (8.4-10.2) mg/dL Albumin 2.3 L (3.4-5.0) gm/dl - Exam Constitutional: Present: Alert, Morbidly obese Respiratory: Present: no respiratory distress. Absent: crackles Cardiovascular/Chest: Present: regular rate, rhythm Abdomen: Present: obese, firm Extremity: Present: lower extremity edema - 2+ bilateral lower extremity edema to the abdomen Skin Exam: Present: other - flaky skin of bilateral lower extremities. Stage II ulcer of left lower enterolateral leg Assessment/Plan - Problems/Diagnosis (1) Acute exacerbation of CHF (congestive heart failure) Problem: Acute Narrative: He was having an insufficient response to 60 mg bid IV Lasix, and was switched to 5 mg metolazone and 40 mg torsemide yesterday. Weight has changed minimally, and he still has significant swelling. Kidney function has been fine, so we will double each of those doses. He continues to oxygenate on room air and denies shortness of breath. (2) Osteomyelitis of right foot Problem: Chronic Narrative: He has osteomyelitis of the heel and declines surgery. Has been on IV abx for approximately 5 weeks, and recommend at least [address] Suarez, who will see him tomorrow for his previously scheduled one week follow up. (3) Osteomyelitis of left foot Problem: Chronic Narrative: He is S/P partial 5th ray amputation last month. Continue tx per Dr. Suarez's note from 06/30. Continue Merrem, likely at least through 07/24. (4) Ureterolithiasis Problem: Chronic Narrative: Tentatively scheduled to remove his stent on 07/15. 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 Decrease his long-term Lantus dosing to 60 twice daily. Continue very high dose sliding scale insulin. (6) Anemia Problem: Chronic Narrative: Normocytic. No signs of blood loss. (7) History of DVT (deep vein thrombosis) Problem: Chronic Narrative: Continue eliquis.
[2018-07-06] MEDS: ACETAMINOPHEN 325 MG TABLET PO SCH ×2 (15:01→19:21)
[2018-07-06] MEDS: ROSUVASTATIN CALCIUM 20 MG TABLET PO SCH (17:12)
[2018-07-06] MEDS: GABAPENTIN 300 MG CAPSULE PO SCH (17:13)
[2018-07-06] MEDS: DOXAZOSIN MESYLATE 2 MG TABLET PO SCH (21:18)
[2018-07-07] MEDS: ACETAMINOPHEN 325 MG TABLET PO SCH ×4 (01:47→19:53)
[2018-07-07] MEDS: MEROPENEM 500 MG in NORMAL SALINE 100 ML IV SCH ×3 (02:39→17:32)
[2018-07-07 05:44] LABS: Hematocrit 25.5 % (42.0-52.0); Mean Cell Volume 85.6 fl (78-100); Mean Corpuscular Hemoglobin 26.5 pg (27-31); Mean Platelet Volume 11.1 fl (8-11.3); Neutrophil # 2.9 K/mm3 (1.3-6.0); Neutrophil % 61.8 % (42-75.0); Platelet Count 129 K/mm3 (150-450); Red Blood Count 2.98 M/mm3 (4.7-6.0); Red Cell Distribution Width 16.3 % (11.5-14.0); White Blood Count 4.6 K/mm3 (4.0-10.5)
[2018-07-07 06:07] LABS: Anion Gap 10.6 mmol/L (6.8-13.8); BUN/Creatinine Ratio 27.2 (9.0-21.6); Calcium * 9.1 mg/dL (7.9-10.9); Carbon Dioxide 32.4 mmol/L (24-32.6)
[2018-07-07] MEDS: INSULIN LISPRO 100 UNITS/ML VIAL SC SCH ×4 (06:51→22:05)
[2018-07-07] MEDS: PANTOPRAZOLE SODIUM 20 MG TABLET.DR PO SCH (06:54)
--- NOTE | 2018-07-07 08:36 | PN ---
Subjective - Date and Time Seen Date: 07/07/18 Time: 08:35 Subjective Narrative: Patient reports no significant change from yesterday. He does state his scrotum is uncomfortable because of the swelling. Objective - Review of Systems Generalized/Overall Review: Denies: Fever Respiratory: Denies: Cough, Shortness of Breath Cardiac: Reports: Edema. Denies: Chest Pain Abdominal: Denies: Vomiting Musculoskeletal Complaints: Reports: Back Pain Skin: Reports: Other - bilateral foot ulcers - Vitals Vitals: Last Vital Signs Temp 37.0 C 07/07/18 06:57 Pulse 67 07/07/18 06:57 Resp 18 07/07/18 06:57 BP 118/52 07/07/18 06:57 Pulse Ox 93 07/07/18 06:57 - Abnormal Lab Findings Abnormal Lab Findings: Abnormal Lab Results 07/07/18 07/07/18 Range/Units 05:40 05:40 RBC 2.98 L (4.7-6.0) M/mm3 Hgb 8.0 L (13.5-18.0) gm/dL Hct 25.5 L (42.0-52.0) % MCH 26.5 L (27-31) pg MCHC 31.0 L (32-36) g/dl RDW 16.3 H (11.5-14.0) % Plt Count 129 L (150-450) K/mm3 Immature Gran % (Auto) 1.30 H (0.001-0.429) % Immature Gran # (Auto) 0.06 H (0.000-0.0310) K/mm3 Lymphocytes % 18.7 L (20-51) % Monocytes % 12.1 H (0.0-9) % Eosinophils % 5.4 H (0.0-3.0) % Lymphocytes # 0.86 L (1.5-3.5) k/mm3 BUN 41 H (6-23) mg/dL Creatinine 1.51 H (0.4-1.4) mg/dL Est GFR (Non-Af Amer) 49 L D (60-130) mL/min BUN/Creatinine Ratio 27.2 H (9.0-21.6) - Exam Constitutional: Present: Oriented x3, Cooperative, Morbidly obese Respiratory: Present: decreased breath sounds. Absent: crackles, rhonchi Cardiovascular/Chest: Present: regular rate, rhythm, systolic murmur Abdomen: Present: obese, firm Extremity: Present: lower extremity edema - 2+ bilaterally to the abdomen Skin Exam: Present: other - scaly skin of bilateral lower legs Assessment/Plan - Problems/Diagnosis (1) Acute exacerbation of CHF (congestive heart failure) Problem: Acute Narrative: Torsemide and metolazone were doubled yesterday without an improvement in his diuresis. Will continue these doses for now. Discussed with Dr. Landon, and she has been consulted for assistance with diuresis. Will obtain an echocardiogram to see if decreased EF is contributing to his edema. His albumin is low, which is another source of edema. He did have a slight increase in his creatinine, from 1.2 to 1.5, so am reluctant to further increase diuretic doses. He is physically unable to move much due to his obesity, back pain, and lower extremity wounds, which also impedes diuresis. PT has been consulted to see if they can offer any assistance. His outlook is very poor. Will again need to discuss hospice options with his family. (2) Osteomyelitis of right foot Problem: Chronic Narrative: He has osteomyelitis of the heel and declines surgery. Has been on IV abx for approximately 5 weeks, and recommend at least [address] Suarez, who will see him today for dressing changes. (3) Osteomyelitis of left foot Problem: Chronic Narrative: He is S/P partial 5th ray amputation last month. Dr. Suarez will see him today. Continue daily dressing changes. Continue Merrem, likely at least through 07/24. (4) Ureterolithiasis Problem: Chronic Narrative: He [facility] for renal [facility]. It may be a source of back pain. Unfortunately, his other co-morbidities have interfered with its removal. Tentatively scheduled to remove his stent on 07/15. 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 Continue very high dose SSI. He received 36 U humalog yesterday. (6) Anemia Problem: Chronic Narrative: No change from yesterday. (7) History of DVT (deep vein thrombosis) Problem: Chronic Narrative: Continue eliquis.
[2018-07-07] MEDS: amLODIPine BESYLATE 10 MG TABLET PO SCH (09:33)
[2018-07-07] MEDS: SACCHAROMYCES BOULARDII 250 MG CAPSULE PO SCH ×2 (09:33→22:18)
[2018-07-07] MEDS: TORSEMIDE 20 MG TABLET PO SCH (09:33)
[2018-07-07] MEDS: CARVEDILOL 25 MG TABLET PO SCH ×2 (09:33→22:13)
[2018-07-07] MEDS: APIXABAN 5 MG TABLET PO SCH ×2 (09:34→22:18)
[2018-07-07] MEDS: SPIRONOLACTONE 25 MG TABLET PO SCH (09:34)
[2018-07-07] MEDS: COLLAGENASE CLOSTRIDIUM HIST. 30 APPL TUBE TP SCH (09:34)
[2018-07-07] MEDS: INSULIN GLARGINE,HUM.REC.ANLOG 100 UNITS/ML VIAL SC SCH ×2 (09:40→22:05)
[2018-07-07] MEDS: METOLAZONE 5 MG TABLET PO SCH (10:18)
--- NOTE | 2018-07-07 12:35 | PN ---
Subjective - Date and Time Seen Date: 07/07/18 Time: 11:30 Subjective Narrative: Pt scheduled today for follow up in wound center for bilateral foot ulcerations, however due to hospitalization is instead seen in hospital room. He is in bed resting, and c/o back pain, which is not a new complaint. He denies any pain in the feet. He continues to struggle with edema. He continues to decline any surgical care for his right heel ulceration. He has previously undergone a partial 5th ray amputation on the left foot. Current dressings to his feet include application of Santyl covered by a layer of dry gauze, ABD pad, kerlix, and an GAURAV bandage. He has been making slow progress with this care. He is currently on Merrem IV, and has been receiving infusions for 5 weeks. Objective - Review of Systems Generalized/Overall Review: Denies: Fever Cardiac: Reports: Edema Abdominal: Denies: Nausea, Vomiting Musculoskeletal Complaints: Reports: Back Pain Neurological: Reports: Numbness Skin: Reports: Other - bilateral foot ulcerations - Vitals Vitals: Last Vital Signs Temp 36.7 C 07/07/18 10:27 Pulse 73 07/07/18 10:27 Resp 20 07/07/18 10:27 BP 141/61 07/07/18 10:27 Pulse Ox 92 L 07/07/18 10:27 - Abnormal Lab Findings Abnormal Lab Findings: Abnormal Lab Results 07/07/18 07/07/18 Range/Units 05:40 05:40 RBC 2.98 L (4.7-6.0) M/mm3 Hgb 8.0 L (13.5-18.0) gm/dL Hct 25.5 L (42.0-52.0) % MCH 26.5 L (27-31) pg MCHC 31.0 L (32-36) g/dl RDW 16.3 H (11.5-14.0) % Plt Count 129 L (150-450) K/mm3 Immature Gran % (Auto) 1.30 H (0.001-0.429) % Immature Gran # (Auto) 0.06 H (0.000-0.0310) K/mm3 Lymphocytes % 18.7 L (20-51) % Monocytes % 12.1 H (0.0-9) % Eosinophils % 5.4 H (0.0-3.0) % Lymphocytes # 0.86 L (1.5-3.5) k/mm3 BUN 41 H (6-23) mg/dL Creatinine 1.51 H (0.4-1.4) mg/dL Est GFR (Non-Af Amer) 49 L D (60-130) mL/min BUN/Creatinine Ratio 27.2 H (9.0-21.6) - Exam Constitutional: Present: Alert, Cooperative Cardiovascular/Chest: Present: edema Extremity: Present: lower extremity edema Skin Exam: Present: other - Ulceration #1 is located to the left lateral foot at the surgical site following partial fifth ray amputation and measures 6.8 x 3 x 0.5 cm. There is no tunneling or undermining noted. Loss of tissue is to full thickness with exposure of subcutaneous fat layer. The wound bed is covered with a significant amount of yellow fibrotic slough tissue as well as some blanched, dull pink colored tissue. There is a minimal amount of red granulation tissue that is intermixed that appears to be increasing from his last visit. The surrounding tissue is dry and flaky, otherwise, pink and intact. There is a moderate amount of serous drainage noted with no malodor present. There is no exposed tendon or bone at this time. Ulceration #2 is located to the right plantar heel and measures 7.5 x 6 cm. Depth remains immeasurable at this time. Loss of tissue is to full thickness with exposure of subcutaneous fat layer. The wound bed is covered with a significant amount of black eschar tissue with a smaller amount of red granulation tissue about the periphery of the ulceration that is also increasing from his last visit. The surrounding tissue is dry and flaky, otherwise pink and intact. There is a moderate amount of serous drainage noted with mild odor present. There is no exposed tendon or bone at this time. Neurologic: Present: sensory deficit Appearance: Present: appropriate appearance Eye contact: Present: cooperative Assessment/Plan Plan Narrative: Discussed with pt his ulcerations and care moving forward. He appears to be showing some slow improvement in these ulcerations with current dressings, so we will continue with our current dressings at this time. Ulcerations are dressed with Santyl, covered with a dry dressing of gauze and an ABD pad, secured with Kerlix and an Gaurav bandage. These dressings will continue to be changed on a daily basis. Feet are to be washed with soap and water and dried with a clean towel prior to applying his new dressings. We will continue offloading with use of surgical shoes for all weightbearing activities. He may remove shoes at rest. He is encouraged to try to keep his feet elevated as much as possible to help control fluid about his extremities, which will also aid in his healing. He will continue IV antibiotics as they are ordered, agree with another 3 weeks to give a total of 8 weeks of ABX therapy. Again discussed severity of right heel ulceration and potential need for surgery, to which the patient again refuses. I am happy to follow along in the care of this patient while he remains in the hospital, and will plan to continue weekly wound care visits once he returns to the nursing facility. - Problems/Diagnosis (1) Diabetic ulcer of foot associated with diabetes mellitus due to underlying condition, with necrosis of bone Problem: Chronic Qualifiers: Diabetic foot ulcer location: heel Laterality: right Qualified Code(s): E08.621 - Diabetes mellitus due to underlying condition with foot ulcer; L97.414 - Non-pressure chronic ulcer of right heel and midfoot with necrosis of bone (2) Osteomyelitis of right foot Problem: Chronic Qualifiers: Osteomyelitis type: unspecified type Qualified Code(s): M86.9 - Osteomyelitis, unspecified (3) Osteomyelitis of left foot Problem: Chronic Qualifiers: Osteomyelitis type: unspecified type Qualified Code(s): M86.9 - Osteomyelitis, unspecified (4) Diabetic ulcer of foot associated with diabetes mellitus due to underlying condition, with necrosis of bone Problem: Chronic Qualifiers: Diabetic foot ulcer location: other Laterality: left Qualified Code(s): E08.621 - Diabetes mellitus due to underlying condition with foot ulcer; L97.524 - Non-pressure chronic ulcer of other part of left foot with necrosis of bone
[2018-07-07] MEDS: HYDROcodone/ACETAMINOPHEN 1 EACH TABLET PO PRN (14:37)
--- NOTE | 2018-07-07 16:13 | PN ---
Kiana Note - Interim Date: 07/07/18 Time: 16:10 Narrative: 07/07/18 16:10 Spoke with patient's daughter. He has not responded to diuresis after 7 days. His creatinine was slightly increased from yesterday, indicating he will not tolerate more aggressive diuresis. She is aware that he is not getting better, and was already aware that he may not be cured. She will talk with her brothers about pursuing hospice benefits, and I will call her again tomorrow.
[2018-07-07] MEDS: GABAPENTIN 300 MG CAPSULE PO SCH (16:44)
[2018-07-07] MEDS: ROSUVASTATIN CALCIUM 20 MG TABLET PO SCH (16:44)
--- NOTE | 2018-07-07 17:15 | PN ---
Subjective - Date and Time Seen Date: 07/07/18 Time: 09:00 Objective - Review of Systems Respiratory: Denies: Shortness of Breath Cardiac: Reports: Edema. Denies: Chest Pain Abdominal: Denies: Abdominal Pain - Vitals Vitals: Last Vital Signs Temp 37.0 C 07/07/18 14:21 Pulse 80 07/07/18 16:00 Resp 18 07/07/18 14:21 BP 106/55 07/07/18 14:21 Pulse Ox 93 07/07/18 14:21 - Abnormal Lab Findings Abnormal Lab Findings: Abnormal Lab Results 07/07/18 07/07/18 Range/Units 05:40 05:40 RBC 2.98 L (4.7-6.0) M/mm3 Hgb 8.0 L (13.5-18.0) gm/dL Hct 25.5 L (42.0-52.0) % MCH 26.5 L (27-31) pg MCHC 31.0 L (32-36) g/dl RDW 16.3 H (11.5-14.0) % Plt Count 129 L (150-450) K/mm3 Immature Gran % (Auto) 1.30 H (0.001-0.429) % Immature Gran # (Auto) 0.06 H (0.000-0.0310) K/mm3 Lymphocytes % 18.7 L (20-51) % Monocytes % 12.1 H (0.0-9) % Eosinophils % 5.4 H (0.0-3.0) % Lymphocytes # 0.86 L (1.5-3.5) k/mm3 BUN 41 H (6-23) mg/dL Creatinine 1.51 H (0.4-1.4) mg/dL Est GFR (Non-Af Amer) 49 L D (60-130) mL/min BUN/Creatinine Ratio 27.2 H (9.0-21.6) - Exam Constitutional: Present: Alert, Cooperative, Morbidly obese ENT Exam: Present: hearing grossly normal Neck: Absent: lymphadenopathy (R), lymphadenopathy (L) Respiratory: Present: normal breath sounds. Absent: crackles, rhonchi, No wheezing Cardiovascular/Chest: Present: normal peripheral pulses, regular rate, rhythm, edema - 2+ pitting edema in bilateral lower extremities up to the mid abdomen. 2+ edema of the right hand, 1+ edema of the left hand. Abdomen: Present: Normal bowel sounds, nontender Extremity: Present: leg pain, pedal edema Skin Exam: Present: normal color, warm/dry Neurologic: Present: alert, normal mood/affect Appearance: Present: appropriate appearance Eye contact: Present: cooperative Thoughts: Present: normal thought pattern Assessment/Plan - Problems/Diagnosis (1) Fluid overload Problem: Acute Narrative: This is an internal medicine consult for treatment of edema: Etiology of edema may be secondary to hypoalbuminemia. Recommend continuing with torsemide and metolazone but would not increase dose any further because it is affecting his renal function. If renal function continues to worsen I would consider decreasing the dose of the torsemide. (2) Diabetes Problem: Acute Qualifiers: Diabetes mellitus type: type 2 Diabetes mellitus predatory animal exterminator insulin use: with predatory animal exterminator use Diabetes mellitus complication status: with circulatory complication Diabetes mellitus complication detail: with peripheral angiopathy with gangrene Qualified Code(s): E11.52 - Type 2 diabetes mellitus with diabetic peripheral angiopathy with gangrene; Z79.4 - intermediate frame tender (current) use of insulin (3) Osteomyelitis of left foot Problem: Chronic Qualifiers: Osteomyelitis type: unspecified type Qualified Code(s): M86.9 - Osteomyelitis, unspecified (4) Osteomyelitis of right foot Problem: Chronic Qualifiers: Osteomyelitis type: unspecified type Qualified Code(s): M86.9 - Osteomyelitis, unspecified (5) Stage 3 chronic kidney disease Problem: Chronic (6) DVT (deep venous thrombosis) Problem: Acute
[2018-07-07] MEDS: DOXAZOSIN MESYLATE 2 MG TABLET PO SCH (22:13)
[2018-07-08] MEDS: ACETAMINOPHEN 325 MG TABLET PO SCH ×2 (01:06→06:51)
[2018-07-08] MEDS: HYDROcodone/ACETAMINOPHEN 1 EACH TABLET PO PRN ×2 (01:06→16:52)
[2018-07-08] MEDS: MEROPENEM 500 MG in NORMAL SALINE 100 ML IV SCH ×3 (02:06→17:29)
[2018-07-08 05:23] LABS: Hematocrit 25.2 % (42.0-52.0); Mean Cell Volume 83.7 fl (78-100); Mean Corpuscular Hemoglobin 26.2 pg (27-31); Mean Corpuscular Hgb Conc 31.3 g/dl (32-36); Mean Platelet Volume 10.6 fl (8-11.3); Neutrophil # 3.2 K/mm3 (1.3-6.0); Neutrophil % 66.1 % (42-75.0); Platelet Count 125 K/mm3 (150-450); Red Blood Count 3.01 M/mm3 (4.7-6.0); Red Cell Distribution Width 16.2 % (11.5-14.0); White Blood Count 4.8 K/mm3 (4.0-10.5)
[2018-07-08 05:36] LABS: Albumin * 2.4 gm/dl (3.4-5.0); Anion Gap 10.8 mmol/L (6.8-13.8); BUN/Creatinine Ratio 33.1 (9.0-21.6); Bilirubin, Total 0.5 mg/dL (0.0-1.1); Ca. Corrected For Albumin 10.3 mg/dL (8.4-10.2); Calcium * 9.3 mg/dL (7.9-10.9); Carbon Dioxide 31.3 mmol/L (24-32.6); Potassium 4.1 mmol/L (3.4-4.6); Total Protein 7.3 gm/dL (6.2-8.2)
[2018-07-08] MEDS: PANTOPRAZOLE SODIUM 20 MG TABLET.DR PO SCH (06:51)
[2018-07-08] MEDS: INSULIN LISPRO 100 UNITS/ML VIAL SC SCH ×4 (07:07→20:25)
[2018-07-08] MEDS ORDERED: ACETAMINOPHEN 325 MG TABLET PO PRN (08:09)
--- NOTE | 2018-07-08 08:15 | PN ---
Subjective - Date and Time Seen Date: 07/08/18 Time: 08:06 Subjective Narrative: Patient reports no change. He did slip down to the floor yesterday, but someone was present who helped him to the floor, so he didn't actually fall and hit the floor. He doesn't feel like the scheduled tylenol is helping. He is aware that not much progress has been made with diuresis, and states "If it's my time to go, it's my time to go." He would like his kids to make decisions regarding his care. Objective - Review of Systems Generalized/Overall Review: Denies: Fever Respiratory: Denies: Cough Cardiac: Reports: Edema. Denies: Chest Pain Abdominal: Denies: Vomiting Genitourinary Symptoms: Reports: No Symptoms Reported Musculoskeletal Complaints: Reports: Back Pain - Vitals Vitals: Last Vital Signs Temp 36.4 C 07/08/18 06:47 Pulse 78 07/08/18 06:47 Resp 20 07/08/18 06:47 BP 131/50 07/08/18 06:47 Pulse Ox 94 07/08/18 06:47 - Abnormal Lab Findings Abnormal Lab Findings: Abnormal Lab Results 07/08/18 07/08/18 Range/Units 05:05 05:05 RBC 3.01 L (4.7-6.0) M/mm3 Hgb 8.0 L (13.5-18.0) gm/dL Hct 25.2 L (42.0-52.0) % MCH 26.2 L (27-31) pg MCHC 31.3 L (32-36) g/dl RDW 16.2 H (11.5-14.0) % Plt Count 125 L (150-450) K/mm3 Immature Gran % (Auto) 1.00 H (0.001-0.429) % Immature Gran # (Auto) 0.05 H (0.000-0.0310) K/mm3 Lymphocytes % 15.0 L (20-51) % Monocytes % 12.3 H (0.0-9) % Eosinophils % 5.2 H (0.0-3.0) % Lymphocytes # 0.72 L (1.5-3.5) k/mm3 BUN 48 H (6-23) mg/dL Creatinine 1.45 H (0.4-1.4) mg/dL Est GFR (Non-Af Amer) 51 L (60-130) mL/min BUN/Creatinine Ratio 33.1 H (9.0-21.6) Random Glucose 239 H D (70-110) mg/dL Calcium Adj for Albumin 10.3 H (8.4-10.2) mg/dL Albumin 2.4 L (3.4-5.0) gm/dl - Exam Constitutional: Present: Alert, Cooperative, Morbidly obese Respiratory: Present: decreased breath sounds. Absent: crackles, rhonchi Cardiovascular/Chest: Present: regular rate, rhythm, systolic murmur Abdomen: Present: obese, firm Extremity: Present: lower extremity edema - 2+ to the abdomen, 2+ to hands, right greater than left Assessment/Plan - Problems/Diagnosis (1) Acute exacerbation of CHF (congestive heart failure) Problem: Acute Narrative: No change in edema. Today is day 7 of hospitalization, and he has not responded to IV or po diuresis. He started to have an increased in his creatinine with higher doses of torsemide and metolazone, indicating he can not tolerate higher doses. Echo done [facility] in March showed some LVH and diastolic dysfunction. With his inability to move physically, his foot ulcers, and comorbidities, he likely will be unable to diurese. Discussed potential hospice discussion with his daughter, Nati, yesterday, and also briefly discussed with him this morning. Will have a family meeting this afternoon to discuss further. (2) Osteomyelitis of right foot Problem: Chronic Qualifiers: Osteomyelitis type: unspecified type Qualified Code(s): M86.9 - Osteomyelitis, unspecified Narrative: He has osteomyelitis of the heel and declines surgery. Has been on IV abx for approximately 5 weeks, and recommend at least 8 weeks. He was seen by Dr. Suarez 07/07. She recommended santyl and daily dressing changes. Please see her notes for specific instructions. (3) Osteomyelitis of left foot Problem: Chronic Qualifiers: Osteomyelitis type: unspecified type Qualified Code(s): M86.9 - Osteomyelitis, unspecified Narrative: He is S/P partial 5th ray amputation last month. Continue daily dressing changes. Continue Merrem, likely at least through 07/24. (4) Ureterolithiasis Problem: Chronic Narrative: Tentatively scheduled removal of ureteral stent on 07/15. This was placed by the [facility] in April. 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 Continue 60 mg insulin bid, and very high dose SSI. (6) Anemia Problem: Chronic Narrative: No change. (7) History of DVT (deep vein thrombosis) Problem: Chronic Narrative: Continue eliquis. (8) Sacral decubitus ulcer Problem: Chronic Qualifiers: Pressure injury stage: unspecified pressure injury stage Qualified Code(s): L89.159 - Pressure ulcer of sacral region, unspecified stage Narrative: Has been present since his initial admission. Wound care has been consulted. He is on merrem for his foot ulcers. Given his obesity, diabetes, back pain and deconditioning, it is highly likely this will not heal. He is unable to offload his weight from his sacrum.
[2018-07-08] MEDS: SPIRONOLACTONE 25 MG TABLET PO SCH (08:20)
[2018-07-08] MEDS: TORSEMIDE 20 MG TABLET PO SCH (08:20)
[2018-07-08] MEDS: APIXABAN 5 MG TABLET PO SCH ×2 (08:21→20:30)
[2018-07-08] MEDS: SACCHAROMYCES BOULARDII 250 MG CAPSULE PO SCH ×2 (08:21→20:30)
[2018-07-08] MEDS: CARVEDILOL 25 MG TABLET PO SCH ×2 (08:23→20:31)
[2018-07-08] MEDS: INSULIN GLARGINE,HUM.REC.ANLOG 100 UNITS/ML VIAL SC SCH ×2 (08:23→20:27)
[2018-07-08] MEDS: amLODIPine BESYLATE 10 MG TABLET PO SCH (08:25)
[2018-07-08] MEDS: COLLAGENASE CLOSTRIDIUM HIST. 30 APPL TUBE TP SCH (08:29)
[2018-07-08] MEDS: HYDROcodone/ACETAMINOPHEN 1 EACH TABLET PO SCH ×3 (09:14→17:20)
[2018-07-08] MEDS: METOLAZONE 5 MG TABLET PO SCH (10:11)
[2018-07-08] MEDS ORDERED: HYDROcodone/ACETAMINOPHEN 1 EACH TABLET PO SCH (16:37)
--- NOTE | 2018-07-08 16:39 | PN ---
Progess Note - Interim Date: 07/08/18 Time: 16: Narrative: 07/08/18 16:27 Spoke with several family members about treatment goals. They are interested in hospice benefits. They are unable to care for all of his needs at home, and would like for him to go back to [facility]. He is still having some back pain, and they would like him to have better pain control.
[2018-07-08] MEDS: ROSUVASTATIN CALCIUM 20 MG TABLET PO SCH (16:54)
[2018-07-08] MEDS: GABAPENTIN 300 MG CAPSULE PO SCH (16:54)
[2018-07-08] MEDS: DOXAZOSIN MESYLATE 2 MG TABLET PO SCH (20:29)
[2018-07-09] MEDS: MEROPENEM 500 MG in NORMAL SALINE 100 ML IV SCH ×2 (03:19→10:45)
[2018-07-09] MEDS: HYDROcodone/ACETAMINOPHEN 1 EACH TABLET PO PRN (03:29)
[2018-07-09] MEDS: HEPARIN SOD.,PORCINE 100 UNITS/ML IV PRN (04:00)
[2018-07-09] MEDS: PANTOPRAZOLE SODIUM 20 MG TABLET.DR PO SCH (06:52)
[2018-07-09 06:54] LABS: Anion Gap 10.2 mmol/L (6.8-13.8); BUN/Creatinine Ratio 31.6 (9.0-21.6); Calcium * 9.3 mg/dL (7.9-10.9); Estimated Creat Clear 44.1; Potassium 4.2 mmol/L (3.4-4.6)
[2018-07-09 06:57] LABS: Mean Cell Volume 85.3 fl (78-100); Mean Corpuscular Hemoglobin 26.6 pg (27-31); Mean Corpuscular Hgb Conc 31.2 g/dl (32-36); Mean Platelet Volume 11.3 fl (8-11.3); Neutrophil # 3.5 K/mm3 (1.3-6.0); Neutrophil % 68.8 % (42-75.0); Platelet Count 120 K/mm3 (150-450); Red Blood Count 2.93 M/mm3 (4.7-6.0); Red Cell Distribution Width 16.3 % (11.5-14.0); White Blood Count 5.1 K/mm3 (4.0-10.5)
[2018-07-09 07:03] LABS: Hemoglobin 7.8 gm/dL (13.5-18.0)
[2018-07-09] MEDS: INSULIN LISPRO 100 UNITS/ML VIAL SC SCH (07:37)
--- NOTE | 2018-07-09 07:58 | DS ---
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 Dominguez presented for surgery for removal of his ureteral stent on Friday, 07/01. He was found to have significant upper and lower extremity edema, and was brought to the ED. I assessed him in the ED, discussed with the ER doc, and he was admitted for IV Lasix for CHF exacerbation. The [facility], where he is a current resident, was also called for summary of recent events. They reported increasing his p.o. dose of Lasix the day prior to admission. He was oxygenating well on room air, and denied dyspnea. He was originally given 60 mg of Lasix twice daily, but did not have sufficient response. This was increased to 80 mg twice daily the following day. Due to his significant edema, which was 2+ pitting to his abdomen, 1 mg Bumex and 25 mg spironolactone were added. This did not change his swelling, and he was changed to 20 mg metolazone and 40 mg torsemide. The doses were doubled the following day, as he still did not have much diuresis. The increased doses were also not effective, and he started to have an increase in his creatinine. Since diuresis was ineffective, a family meeting was held to discuss pursuing hospice benefits, to which they agreed. Will finish his course of antibiotics, and then change to comfort measures. Family is aware his infections may get acutely worse after they are DC'd. Recommend adjusting his diuretics based on his comfort level. His pain was controlled with 15 mg oxycontin bid and 10 mg norco q4h prn. Will order oxygen to use as needed for comfort measures. Will continue his current meds until he has finished his antibiotics, and previously prescribed meds can be discontinued per family wishes. He had one episode where telemetry showed a heart rate of 31. EKG was done, and his heart rate was 79. He was asymptomatic at the time. He continues to have a bilateral lower extremity ulcers, left fifth metatarsal and right heel. He is S/P left 5th ray partial amputation. Dressings were changed, and he was continued on Merrem. Recommend continuing 8 total weeks of antibiotic coverage, which will be through 07/24. Recommend continued daily dressing changes of bilateral foot ulcers, and his sacral ulcer. He initially was prescribed 80 U lantus bid and very high dose sliding scale insulin, but had two consecutive mornings of low glucose, to the 50's. His dose was adjusted to 60 bid, and he declined some doses for fear of repeating the low glucose. His stent removal is rescheduled with Dr. Franco on July 15. Procedures Performed: none Results and Findings: Lab Pending Results 07/01/18 13:14: WBC 4.3, RBC 3.25 L, Hgb 8.6 L, Hct 28.3 L, MCV 87.1, MCH 26.5 L, MCHC 30.4 L, RDW 16.7 H, Plt Count 122 L, MPV 11.0, Immature Gran % (Auto) 0.90 H, Immature Gran # (Auto) 0.04 H, Neutrophils % 68.4, Lymphocytes % 14.3 L, Monocytes % 9.6 H, Eosinophils % 6.1 H, Basophils % 0.7, Nucleated RBC % 0.0, Neutrophils # 2.9, Lymphocytes # 0.61 L, Monocytes # 0.4, Eosinophils # 0.3, Absolute Basophils 0.0 07/01/18 13:14: Sodium 138, Plasma Sodium 140, Potassium 4.6 D, Chloride 102, Carbon Dioxide 25.8, Anion Gap 14.8 H, BUN 34 H, Creatinine 1.34, Est GFR (Non- Af Amer) 56 L, BUN/Creatinine Ratio 25.4 H, Random Glucose 208 H, Calcium 9.1, Calcium Adj for Albumin 10.2, Total Bilirubin 0.6, AST 38, ALT 19, Alkaline Deon sphatase 164, Troponin I 0.032, B-Natriuretic Peptide 1711 H, Total Protein 7.5, Albumin 2.2 L 07/02/18 06:55: Sodium 139, Plasma Sodium 141, Potassium 3.8, Chloride 100, Carb on Dioxide 31.1, Anion Gap 11.7, BUN 28 H, Creatinine 1.36, Est GFR (Non-Af Amer) 55 L, BUN/Creatinine Ratio 20.6, Random Glucose 215 H, Calcium 9.1 07/02/18 06:55: WBC 4.4, RBC 3.22 L, Hgb 8.7 L, Hct 27.4 L, MCV 85.1, MCH 27.0, MCHC 31.8 L, RDW 16.5 H, Plt Count 130 L, MPV 10.5, Immature Gran % (Auto) 0.50 H, Immature Gran # (Auto) 0.02, Neutrophils % 67.8, Lymphocytes % 14.4 L, Monocytes % 10.0 H, Eosinophils % 6.4 H, Basophils % 0.9, Nucleated RBC % 0.0, Neutrophils # 3.0, Lymphocytes # 0.63 L, Monocytes # 0.4, Eosinophils # 0.3, Absolute Basophils 0.0 07/03/18 08:51: WBC 4.2, RBC 3.08 L, Hgb 8.3 L, Hct 26.6 L, MCV 86.4, MCH 26.9 L, MCHC 31.2 L, RDW 16.5 H, Plt Count 115 L, MPV 10.2, Immature Gran % (Auto) 0.20, Immature Gran # (Auto) 0.01, Neutrophils % 65.2, Lymphocytes % 16.8 L, Monocytes % 11.5 H, Eosinophils % 5.8 H, Basophils % 0.5, Nucleated RBC % 0.0, Neutrophils # 2.7, Lymphocytes # 0.70 L, Monocytes # 0.5, Eosinophils # 0.2, Absolute Basophils 0.0 07/03/18 08:51: Sodium 142, Plasma Sodium 143 H, Potassium 3.9, Chloride 104, Carbon Dioxide 32.3, Anion Gap 9.6, BUN 30 H, Creatinine 1.15, Est GFR (Non-Af Amer) 67 D, BUN/Creatinine Ratio 26.1 H, Random Glucose 184 H, Calcium 9.3 07/05/18 05:40: WBC 4.0, RBC 3.19 L, Hgb 8.4 L, Hct 27.2 L, MCV 85.3, MCH 26.3 L, MCHC 30.9 L, RDW 16.4 H, Plt Count 123 L, MPV 10.7, Immature Gran % (Auto) 0.50 H, Immature Gran # (Auto) 0.02, Neutrophils % 62.4, Lymphocytes % 18.5 L, Monocytes % 11.5 H, Eosinophils % 6.3 H, Basophils % 0.8, Nucleated RBC % 0.0, Neutrophils # 2.5, Lymphocytes # 0.74 L, Monocytes # 0.5, Eosinophils # 0.3, Absolute Basophils 0.0 07/05/18 05:40: Sodium 143 H, Plasma Sodium 143 H, Potassium 3.8, Chloride 102, Carbon Dioxide 33.0 H, Anion Gap 11.8, BUN 31 H, Creatinine 1.20, Est GFR (Non- Af Amer) 64, BUN/Creatinine Ratio 25.8 H, Random Glucose 73 D, Calcium 9.4, Calcium Adj for Albumin 10.4 H, Total Bilirubin 0.5, AST 34, ALT 17 L, Alkaline Phosphatase 146, Total Protein 7.2, Albumin 2.3 L 07/05/18 07:24: Random Glucose 52 L 07/06/18 05:45: WBC 4.2, RBC 3.05 L, Hgb 8.1 L, Hct 26.2 L, MCV 85.9, MCH 26.6 L, MCHC 30.9 L, RDW 16.2 H, Plt Count 126 L, MPV 11.0, Immature Gran % (Auto) 0.70 H, Immature Gran # (Auto) 0.03, Neutrophils % 63.5, Lymphocytes % 16.5 L, Monocytes % 11.3 H, Eosinophils % 7.3 H, Basophils % 0.7, Nucleated RBC % 0.0, Neutrophils # 2.7, Lymphocytes # 0.70 L, Monocytes # 0.5, Eosinophils # 0.3, Absolute Basophils 0.0 07/06/18 05:45: Sodium 141, Plasma Sodium 140, Potassium 4.0, Chloride 102, Carbon Dioxide 32.7 H, Anion Gap 10.3, BUN 34 H, Creatinine 1.23, Est GFR (Non- Af Amer) 62, BUN/Creatinine Ratio 27.6 H, Random Glucose 53 L, Calcium 9.3, Calcium Adj for Albumin 10.3 H, Total Bilirubin 0.4, AST 36, ALT 19, Alkaline Phosphatase 153, Total Protein 7.2, Albumin 2.3 L 07/06/18 07:44: Random Glucose 109 D 07/07/18 05:40: WBC 4.6, RBC 2.98 L, Hgb 8.0 L, Hct 25.5 L, MCV 85.6, MCH 26.5 L, MCHC 31.0 L, RDW 16.3 H, Plt Count 129 L, MPV 11.1, Immature Gran % (Auto) 1.30 H, Immature Gran # (Auto) 0.06 H, Neutrophils % 61.8, Lymphocytes % 18.7 L, Monocytes % 12.1 H, Eosinophils % 5.4 H, Basophils % 0.7, Nucleated RBC % 0.0, Neutrophils # 2.9, Lymphocytes # 0.86 L, Monocytes # 0.6, Eosinophils # 0.3, Absolute Basophils 0.0 07/07/18 05:40: Sodium 137, Plasma Sodium 137, Potassium 4.0, Chloride 98, Carbon Dioxide 32.4, Anion Gap 10.6, BUN 41 H, Creatinine 1.51 H, Est GFR (Non- Af Amer) 49 L D, BUN/Creatinine Ratio 27.2 H, Random Glucose 86, Calcium 9.1 07/08/18 05:05: WBC 4.8, RBC 3.01 L, Hgb 8.0 L, Hct 25.2 L, MCV 83.7, MCH 26.2 L, MCHC 31.3 L, RDW 16.2 H, Plt Count 125 L, MPV 10.6, Immature Gran % (Auto) 1.00 H, Immature Gran # (Auto) 0.05 H, Neutrophils % 66.1, Lymphocytes % 15.0 L, Monocytes % 12.3 H, Eosinophils % 5.2 H, Basophils % 0.4, Nucleated RBC % 0.0, Neutrophils # 3.2, Lymphocytes # 0.72 L, Monocytes # 0.6, Eosinophils # 0.3, Absolute Basophils 0.0 07/08/18 05:05: Sodium 136, Plasma Sodium 138, Potassium 4.1, Chloride 98, Carbon Dioxide 31.3, Anion Gap 10.8, BUN 48 H, Creatinine 1.45 H, Est GFR (Non- Af Amer) 51 L, BUN/Creatinine Ratio 33.1 H, Random Glucose 239 H D, Calcium 9.3, Calcium Adj for Albumin 10.3 H, Total Bilirubin 0.5, AST 40, ALT 22, Alkaline Phosphatase 156, Total Protein 7.3, Albumin 2.4 L 07/09/18 06:40: Sodium 135, Plasma Sodium 137, Potassium 4.2, Chloride 98, Carbon Dioxide 31.0, Anion Gap 10.2, BUN 54 H, Creatinine 1.71 H, Est GFR (Non- Af Amer) 42 L, BUN/Creatinine Ratio 31.6 H, Random Glucose 201 H, Calcium 9.3 07/09/18 06:40: WBC 5.1, RBC 2.93 L, Hgb 7.8 L*, Hct 25.0 L, MCV 85.3, MCH 26.6 L, MCHC 31.2 L, RDW 16.3 H, Plt Count 120 L, MPV 11.3, Immature Gran % (Auto) 1.20 H, Immature Gran # (Auto) 0.06 H, Neutrophils % 68.8, Lymphocytes % 12.5 L, Monocytes % 11.6 H, Eosinophils % 5.1 H, Basophils % 0.8, Nucleated RBC % 0.0, Neutrophils # 3.5, Lymphocytes # 0.64 L, Monocytes # 0.6, Eosinophils # 0.3, Absolute Basophils 0.0 Discharge Location: [facility] Disposition: SNF Condition: Poor Level of Care: SNF Discharge Activity: Activity as tolerated Discharge Diet: General/regular food Referrals: Carolann Pride DO [Primary Care Provider] - Additional Patient Instructions (free text): Follow up with Dr. Franco on July 15 for stent removal, stop eliquis day prior and do not take day of. Please administer oxygen prn for patient comfort. Prescriptions (Any new or edited meds): HYDROcodone/ACETAMINOPHEN [[place] 5-325] 1 ea PO Q4H PRN #122 tab PRN Reason: Moderate Pain (Pain Scale 4-6) Meropenem [Merrem] 1 gm IV Q8H #47 dose Meropenem [Merrem] 500 mg IV Q8H #47 dose Metolazone [Zaroxolyn] 10 mg PO DAILY@1100 #30 tablet oxyCODONE HCL [Oxycontin] 15 mg PO BID #60 tab.sr.12h Spironolactone [Aldactone] 25 mg PO DAILY #30 tablet Torsemide [Demadex] 40 mg PO DAILY #60 tablet Complete Home Medications List: Complete Home Medication List: Omeprazole [Prilosec] 20 mg PO DAILY 04/03/16 Amlodipine Besylate 10 mg PO DAILY 05/30/18 Apixaban [Eliquis] 5 mg PO BID 05/30/18 Carvedilol [Coreg] 25 mg PO BID 05/30/18 Clobetasol Propionate 15 gm TOPICAL BID 05/30/18 Gabapentin 100 mg PO DAILY 05/30/18 Gabapentin 300 mg PO QPM 05/30/18 Insulin Regular, Human [Humulin R U-500 Kwikpen] 60 unit SQ HS 05/30/18 Insulin Regular, Human [Humulin R U-500 Kwikpen] 100 unit SQ 0700,1200,1700 05/30/18 Acetaminophen [Tylenol] 650 mg PO Q4H PRN 06/09/18 Magnesium Hydroxide [Milk Of Magnesia] 30 ml PO DAILY PRN 06/09/18 0.9 % Sodium Chloride [Normal Saline Flush] 10 ml IV PRN PRN #1 box 06/15/18 Collagenase Clostridium Hist. [Santyl] 1 appl TOPICAL DAILY #1 tube 06/15/18 Saccharomyces Boulardii [Florastor] 250 mg PO BID #45 cap 06/15/18 Amino AC/Protein Hydr/Whey Pro [Liquacel Liquid Protein Packet] 30 ml PO 07/01/18 Ascorbic Acid [Vitamin C] 500 mg PO BID 07/01/18 Bisacodyl [Dulcolax Suppository] 10 mg RC DAILY PRN 07/01/18 Blood Sugar Diagnostic [Blood Glucose Test Strip] 1 ea MC QID 07/01/18 Cholecalciferol (Vitamin D3) [Vitamin D3] 1,000 unit PO DAILY 07/01/18 Doxazosin Mesylate 16 mg PO HS 07/01/18 Furosemide [Lasix] 80 mg PO BID 07/01/18 HYDROcodone/ACETAMINOPHEN [[place] 5-325] 1 ea PO BID 07/01/18 Heparin Sod,Porcine/0.9 % NaCl [Hep-Lock Flush 100 Unit/ml Kit] 500 unit IV PRN 07/01/18 Linagliptin [Tradjenta] 5 mg PO DAILY 07/01/18 Multivitamin with Minerals [Multivitamins with Minerals] 1 ea PO DAILY 07/01/18 metFORMIN HCL [Metformin HCl] 1,000 mg PO BID 07/01/18 HYDROcodone/ACETAMINOPHEN [[place] 5-325] 1 ea PO Q4H PRN #122 tab 07/09/18 Heparin Sodium,Porcine/Pf [Heparin Lock Flush Syringe] 500 units IV ONCE PRN disp.syrin 07/09/18 Meropenem [Merrem] 1 gm IV Q8H #47 dose 07/09/18 Meropenem [Merrem] 500 mg IV Q8H #47 dose 07/09/18 Metolazone [Zaroxolyn] 10 mg PO DAILY@1100 #30 tablet 07/09/18 Spironolactone [Aldactone] 25 mg PO DAILY #30 tablet 07/09/18 Torsemide [Demadex] 40 mg PO DAILY #60 tablet 07/09/18 oxyCODONE HCL [Oxycontin] 15 mg PO BID #60 tab.sr.12h 07/09/18
[2018-07-09] MEDS ORDERED: TORSEMIDE 20 MG TABLET PO SCH (09:00)
[2018-07-09] MEDS: SPIRONOLACTONE 25 MG TABLET PO SCH (09:09)
[2018-07-09] MEDS: CARVEDILOL 25 MG TABLET PO SCH (09:09)
[2018-07-09] MEDS: APIXABAN 5 MG TABLET PO SCH (09:13)
[2018-07-09] MEDS: SACCHAROMYCES BOULARDII 250 MG CAPSULE PO SCH (09:13)
[2018-07-09] MEDS: INSULIN GLARGINE,HUM.REC.ANLOG 100 UNITS/ML VIAL SC SCH (09:16)
[2018-07-09] MEDS: amLODIPine BESYLATE 10 MG TABLET PO SCH (09:17)
[2018-07-09] MEDS: COLLAGENASE CLOSTRIDIUM HIST. 30 APPL TUBE TP SCH (09:26)
[2018-07-09] MEDS: METOLAZONE 5 MG TABLET PO SCH (10:47)
[2018-07-09 10:59] VITALS: BP 111/53
== END 2018-07-09 11:55 | DRG 291 ==
LOC: MS 12:23 → ER 12:23
PROVIDERS: ADMIT Family Medicine; ATTEND Family Medicine
DX: E11.69 Type 2 diabetes mellitus with other specified complication; R00.1 Bradycardia, unspecified; L97.414 Non-pressure chronic ulcer of right heel and midfoot with necrosis of bone; I13.0 Hypertensive heart and chronic kidney disease with heart failure and stage 1 through stage 4 chronic kidney disease, or unspecified chronic kidney disease; E11.22 Type 2 diabetes mellitus with diabetic chronic kidney disease; Z79.01 Long term (current) use of anticoagulants; R60.9 Edema, unspecified; Z79.4 Long term (current) use of insulin; E11.65 Type 2 diabetes mellitus with hyperglycemia; I50.33 Acute on chronic diastolic (congestive) heart failure; M86.671 Other chronic osteomyelitis, right ankle and foot; Z87.442 Personal history of urinary calculi; E78.5 Hyperlipidemia, unspecified; Z86.718 Personal history of other venous thrombosis and embolism; N20.1 Calculus of ureter; D64.9 Anemia, unspecified; L97.424 Non-pressure chronic ulcer of left heel and midfoot with necrosis of bone; L89.159 Pressure ulcer of sacral region, unspecified stage; M86.672 Other chronic osteomyelitis, left ankle and foot; N18.3 Chronic kidney disease, stage 3 (moderate)
CPT/HCPCS: 36415; 71020; 71046; 80048; 80053; 82947; 83519; 83880; 84484; 85025; 87040; 87081; 93005; 97110; 97162